=== PATIENT | male | born 1940 | race Caucasian/White ===

== ENCOUNTER → 2018-10-02 17:39 | Outpatient (CLI) | payer MEDICARE, SELFPAY ==
--- OUTSIDE RECORDS SUMMARY | 2018-11-28 09:36 | XMS RPT_ITS | Summary of Care ---
:1940 Author Organization [facility] Address [address] [place] [address] Phone Care Team Providers Name Role Phone Nino Paul DO Primary Care Provider Reason for Referral Surgical (Routine) Status Reason Specialty Diagnoses / Referred By Referred To Procedures Contact Contact New Request Diagnoses Spastic tetraplegia Cervical myelopathy Braulio Mckeon APRN-CNP [address] [address] Reason for Visit Reason Comments Baclofen Pump Refill 500/40 Encounter Details Date Type Department Care Team Description 10/09/2018 Office Visit Department of [facility] [address] [place] [address] Spastic tetraplegia (Primary Dx); Physical Medicine and Braulio Mckeon APRN-CNP [address] [address] Cervical myelopathy Rehabilitation [address] [place] [address] [place] [address] Allergies Active Allergy Reactions Severity Noted Date Comments Cephalexin Rash 09/08/2011 Unknown which drug caused rash since both were taken at the same time Sulfa Antibiotics Rash 07/19/2010 Unknown which drug caused rash since both were taken at the same time as of this encounter Medications Prescription Sig. Disp. Refills Start Date End Date Status metoprolol take 1 Tab by 30 Tab 1 03/29/2013 Active succinate (TOPROL mouth daily. XL) 25 MG PO tablet XL probenecid 500 MG take 1 Tab by 30 Tab 1 03/29/2013 Active PO TABSIndications: mouth daily. Hypersomnia, unspecified, HTN (hypertension) bisacodyl 10 MG RE 1 Suppository by 30 Suppository 1 03/29/2013 Active SUPPIndications: Rectal route Hypersomnia, daily. unspecified, HTN (hypertension) lactulose 10 take 15 mL by 500 mL 1 03/29/2013 Active GM/15ML PO mouth daily. Max SOLNIndications: of 40gm/day Chronic Indications: Constipation Chronic Constipation baclofen 500 mcg/mL 40 mL by Active IT SOLN Intrathecal route continuous. Concentration- 500mcg/ml; volume- 40mL; Rate 229.08 mcg/day; Return date for refill- 04/22/14 Psyllium (METAMUCIL take 15 mL by Active PO) mouth daily. ferrous sulfate (KP take 325 mg by Active FERROUS SULFATE) mouth daily.. 325 (65 FE) MG PO Reported on TABS 01/20/2017 Multiple Vitamin take 1 Cap by Active (MULTIVITAMIN) PO mouth daily. CAPS polyethylene glycol take 1 Packet by 30 Packet 0 03/04/2014 Active Pack mouth daily. Tamsulosin HCl 0.4 take 2 Caps by 60 Each 0 03/04/2014 Active MG Cap mouth daily. Ascorbic Acid take 100 mg by 30 Tab 0 03/04/2014 Active (VITAMIN C) 100 MG mouth daily. Tab Casanthranol-Docusa take 1 Tab by 30 Cap 0 03/05/2014 Active te Sodium 30-100 MG mouth daily. Cap simvastatin 40 MG One daily Active TabIndications: Quadriplegia, unspecified donepezil 5 MG take 5 mg by Active TabIndications: mouth At Spastic bedtime.. quadriplegia baclofen 20 MG Tab Take 1 tablet by 25 tablet 0 05/17/2018 Active tablet mouth as needed (for signs/sx of baclofen withdrawl in case of pump failure.). TID prn withdraw symptoms cyproheptadine 4 MG Take 1 tablet by 25 tablet 0 05/17/2018 Active Tab mouth 3 times daily as needed. One TID with symptoms of withdraw acetaminophen 325 Take 2 tablets by 0 05/25/2018 Active MG tablet mouth every 4 hours as needed. furOSEmide (LASIX) Take 0.5 tablets 30 tablet 1 05/30/2018 Active 40 MG Tab by mouth daily. tabletIndications: Hypersomnia, unspecified, HTN (hypertension) vancomycin Take 250 mg by Active 250MG/15ML mouth 4 times SolutionIndications daily. : Urinary retention Lactobacillus Take 2 capsules Active (ACIDOPHILUS by mouth 2 times PO)Indications: daily. Urinary retention Hospital, Clinic, or Ordered Dose Route Frequency Start Date End Date Status Other Facility Administered Medication baclofen (LIORESAL) 40 mL IT ONCE (IN CLINIC) 10/09/2018 10/09/2018 Ended 500 mcg/mL intrathecal injection kit 40 mLIndications: Spastic tetraplegia, Cervical myelopathy as of this encounter Active Problems Problem Noted Date Lung nodule 05/24/2018 Fever 05/18/2018 Sinus tachycardia 05/18/2018 Urinary retention 05/18/2018 Spasm 05/17/2018 Memory disorder 01/02/2018 Blister of right forearm 12/16/2016 Cannot rule out Herpes zoster without complication 12/16/2016 Skin rash fo unknown etiology 09/15/2016 Abnormality of gait 04/10/2014 Transaminitis 02/28/2014 Subclinical hypothyroidism 02/28/2014 Encephalopathy 02/26/2014 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 S/P insertion of intrathecal pump 02/26/2014 Unable to ambulate 02/22/2014 Acute encephalopathy 02/22/2014 Decreased right shoulder range of motion 06/17/[address] of the chest 04/05/2013 Left hip pain 11/23/2012 Balance disorder 11/23/2012 Arthropathy of hip 10/04/2012 Spinal stenosis, lumbar region, without neurogenic claudication 09/05/2012 Lumbar radiculopathy 09/05/2012 Unspecified constipation 09/05/2012 Balance problem 05/29/2012 Abnormal CXR (chest x-ray) 03/10/2012 Cervical myelopathy 07/26/2011 Mechanical complication of nervous system device, implant, and graft 07/01/2011 Abnormal involuntary movement 01/07/2011 Gait disturbance 07/19/2010 Cervical spinal stenosis Hyperlipidemia Spastic tetraplegia Cervical myelopathy PVC (premature ventricular contraction) Resolved Problems Problem Noted Date Resolved Date Spastic quadriplegia 07/19/2010 10/24/2017 Immunizations Name Dates Previously Given Next Due Influenza Vaccine 07/06/2012 as of this encounter Social History Tobacco Use Types Packs/Day Years Used Date Never Smoker Smokeless Tobacco: Never Used Alcohol Use Drinks/Week oz/Week Comments No Sex Assigned at Date Recorded Not on file as of this encounter Functional Status Functional Status Response Date of Assessment Are you deaf or do you have serious difficulty hearing? No 05/17/2018 Are you blind or do you have serious difficulty seeing, No 05/17/2018 even when wearing glasses? Do you have serious difficulty walking or climbing stairs Yes 05/17/2018 (5 years or older)? Do you have difficulty dressing or bathing (5 yrs or Yes 05/17/2018 older)? Because of a physical, mental, or emotional condition, do Yes 05/17/2018 you have difficulty doing errands alone such as visiting a doctor's office or shopping (5 yrs or older)? Cognitive Status Response Date of Assessment Because of a physical, mental, or emotional condition, do No 05/17/2018 you have serious difficulty concentrating, remembering, or making decisions (5 yrs or older)? as of this encounter Instructions Patient Instructions - PRUDENCE PATEL (KOREYIBLili) - 10/09/2018 1:26 PM ESTNext Baclofen refill appointment date 02/06/2019 @ 10:45am. If any questions or concerns should arise please OUR OFFICE @[phone] For Baclofen emergencies please page [phone] This appointment is with Jose Rivera this encounter Progress Notes Braulio Mckeon APRN-MO - 10/09/2018 1:30 PM ESTFormatting of this note may be different from the original. Chief Complaint Patient presents with ??? Baclofen Pump Refill 500/40 Subjective Santino Jo is a 78 y.o. male presenting for routine refill of his intrathecal baclofen pump. Patient is doing well, he and his deny any problems with his current pump dose. Examination: Gen: Calm, no acute distress; is pleasant and cooperative throughout the visit. HE ENT: Mucous membranes moist. Cardiovascular: regular rate Lungs: no respiratory distress Abdomen: soft, non-distended, pump to RLQ. Extremities: no clubbing, cyanosis, or edema Neuro: Fluent speech, follows all commands, and answers questions appropriately. There were no vitals taken for this visit. Refill Procedure Note: Santino Jo is currently on a flex mode of delivery for his baclofen dose. His pump is interrogated and reflects a remaining volume of 3.6 mL. The pump site is clear and the incision line is well approximated. Using standard Qulsartronic protocol the pump site is prepped in a sterile fashion with povidone iodineswabs and the reservoir is accessed with the 1.5 inch 22 - gauge non-coring needle on the first attempt. 7.9 mL of old drug are removed without difficulty. The reservoir is then refilled with 40 ml of500 mcg/ml which is drawn up into 2(two) 20 mL syringe/syringes through a filter straw and then infused into the reservoir through a 0.22-micron filter attached to the Baclofen syringe. No complications occur with the procedure. Santino Jo tolerates the procedure well. Hemostasis is noted at theaccess site. The sas clinical programmer is updated to reflect the new reservoir volume of 40 mL and is then usedto update the pump. A telemetry strip is run and a copy given to his with his next refill date and time. [email or web address] Intrathecal Refill Kit # 8565 Lot # [id number]. Use by 05/2022 Baclofen Telemetry Information: 10/09/2018 Current: Intrathecal Baclofen Drug Concentration: 500 mcg/mL Fitzpatrick Volume (mL) Net Maker Est.: 3.6 mL Fitzpatrick Volume (mL) Actual: 7.9 mL Alarm Volume (mL): 2 mL Rate (mcg/day): 153 Delivery mode: flex Percent Change: 0 Alarm date: 10/14/18 Return date: 10/09/18 Comment: baclofen Update: Intrathecal Baclofen Drug Concentration: 500 mcg/mL Fitzpatrick Volume (mL) Net Maker Est.: 40 mL Fitzpatrick Volume (mL) Actual: 40 mL Alarm Volume (mL): 2 mL Rate (mcg/day): 153 Delivery mode: flex Percent Change: 0 Alarm date: 02/10/19 Return date: 02/06/19 Comment: 10:45am Full telemetry details are filed under Procedures, Device Evaluation. Impression: 1. Spastic tetraplegia 2. Cervical myelopathy Discussion and Recommendation: Patient tolerated pump refill well, no changes made to pump dose. Patient continues to benefit from ITB therapy. Will refer patient to neuromodulation at next pump refill as he will be approaching his pump RANGEL. He will return on 02/06/2019 for refill of baclofen pump. Prudence Patel [facility], did scribe portions of this note for myself, LETHA Rivera. Provider Attestation: I have reviewed the documentation for accuracy, edited the report where necessary and the information is correct and complete. LETHA Rivera in this encounter Plan of Treatment Upcoming Encounters Date Type Specialty Care Team Description 10/25/2018 Office Visit Physical Medicine & [place], Gentry Dominguez MD [address] [facility] [address] [place] [address] 02/06/2019 Office Visit Physical Medicine & Braulio Mckeon Rehabilitation APRN-MO [address] [facility] [address] [place] [address] 07/04/2019 Appointment Ultrasound Begun, Andrés Jung MD [address] [facility] [address] [place] [address] 07/04/2019 Office Visit Urology Scheduled Tests Name Priority Associated Diagnoses Order Schedule LA ELEC ANLYS IMPLT Routine Spastic tetraplegia Ordered: 10/09/2018 ITHCL/EDRL RAILROAD COOK W/REPR Cervical myelopathy PHYS/QHP Scheduled Referrals Name Priority Associated Diagnoses Order Schedule SCHEDULE PROCEDURE Routine Spastic tetraplegia Ordered: 10/09/2018 Cervical myelopathy Health Maintenance Due Date Last Done Comments TETANUS 1958 TDAP (ADULT) 1957 COLON CANCER SCREENING DISCUSSION 1988 PNEUMOCOCCAL VACCINE SERIES (1 of 2003 2 - PCV13) POTASSIUM 05/30/2019 05/30/2018, 05/29/2018, 05/28/2018, Additional history exists INFLUENZA VACCINE Completed 07/30/2018, 08/17/2017, 08/12/2016, Additional history exists as of this encounter Implants Implanted Type Area Unattended Ground Sensor Specialist Device Expiration Model / Identifier Date Serial / Lot Adin Filter Filter 1.5t Only Intrahecal Catheter Right: [employer] 8709SC / Implanted: Qty: 1 on 09/15/2011 by Roney Christensen MD Abdomen / [id number] - [id number] Right: [employer] / Implanted: Qty: 1 on 09/15/2011 by Roney Christensen MD Abdomen [id number] / Passer Cath 91-38 Right: [employer] NEURO 8591-38 / Implanted: Qty: 1 on 09/15/2011 by Roney Christensen MD Abdomen / [id number] Intrathecal Catheter 03/27/2014 8709SC / Implanted: Qty: 1 on 04/27/2012 by Lars Alejandro MBBS / [id number] Revision Pump Segment Cath [employer] NEURO 03/28/2014 8596SC / Implanted: Qty: 1 on 04/27/2012 by Lars Alejandro MBBS / [id number] Cath Ascenda Two Piece 8781 - [id number] Midline: [employer] NEURO 01/01/2015 8781 / Implanted: Qty: 1 on 03/19/2013 by Joseph Waggoner MBBS Spine / Lumbar [id number] Cath Ascenda One Piece 8780 - [id number] N/A: Spine [employer] NEURO 02/05/2015 8780 / Implanted: Qty: 1 on 03/19/2013 by Joseph Waggoner MBBS Lumbar / [id number] Pump Synchromed 8637-40 - [id number] Right: [employer] NEURO 08/03/2014 8637- 40 / Implanted: Qty: 1 on 03/19/2013 by Joseph Waggoner MBBS Abdomen / [id number] as of this encounter Visit Diagnoses Diagnosis Spastic tetraplegia - Primary Quadriplegia, unspecified Cervical myelopathy Cervical spondylosis with myelopathy Administered Medications Inactive Administered Medications - up to 3 most recent administrations Medication Order MAR Action Action Date Dose Rate Site baclofen (LIORESAL) 500 mcg/mL Given 10/09/2018 14:23 EST 40 mL intrathecal injection kit 40 mL 40 mL, Intrathecal, ONCE (IN CLINIC), 1 dose, 10/09/18 at 1430, This medication entry should only be manipulated by the MD responsible for maintaining the intrathecal pump. Contains 1 x 20 ml Ampule in this encounter
--- OUTSIDE RECORDS SUMMARY | 2018-11-28 09:36 | XMS RPT_ITS | Summary of Care ---
:1940 Author Organization [facility] Address [address] [place] [address] Phone Care Team Providers Name Role Phone Nino Paul DO Primary Care Provider Reason for Visit Reason Comments Appointment question on whether they need to cancel Encounter Details Date Type Department Care Team Description 10/12/2018 Telephone Department of Physical Lluvia Edmonds Appointment (question on Medicine and whether they need to Rehabilitation cancel) [address] [facility] [address] [place] [address] Allergies Active Allergy Reactions Severity Noted Date [...] mouth 2 times PO)Indications: daily. Urinary retention as of this encounter Active Problems Problem [...] yrs or older)? 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 [address] [facility] [address] [place] [address] 07/04/2019 Appointment Ultrasound Andrés Walker MD [address] [facility] [address] [place] [address] 07/04/2019 Office Visit Urology Health Maintenance Due Date Last Done Comments TETANUS 1956 TDAP (ADULT) 1957 COLON CANCER SCREENING DISCUSSION 1988 PNEUMOCOCCAL VACCINE SERIES (1 of 2003 2 - PCV13) POTASSIUM 05/30/2019 05/30/2018, 05/29/2018, 05/28/2018, Additional history exists INFLUENZA VACCINE Completed 07/30/2018, 08/17/2017, 08/12/2016, Additional history exists as of this encounter Implants Implanted Type Area Laundry Machine Mechanic Device Expiration Model / Identifier Date Serial / Lot Kate Filter Filter 1.5t Only Intrahecal Catheter Right: [employer] 8709SC / Implanted: Qty: 1 on 09/15/2011 by Roney Christensen MD Abdomen / [id number] - [id number] Right: [employer] / Implanted: Qty: 1 on 09/15/2011 by Roney Christensen MD Abdomen [id number] / Passer Cath 8591-38 Right: [employer] NEURO 8591-38 / Implanted: Qty: 1 on 09/15/2011 by Roney Christensen MD Abdomen / [id number] Intrathecal Catheter 03/27/2014 8709SC / Implanted: Qty: 1 on 04/27/2012 by Lars Alejandro MBBS / [id number] Revision Pump Segment Cath [employer] NEURO 03/28/2014 8596SC / Implanted: Qty: 1 on 04/27/2012 by Lars Alejandro MBBS / [id number] Cath Ascenda Two Piece 8781 - [id number] Midline: [employer] NEURO 01/01/2015 8781 / Implanted: Qty: 1 on 03/19/2013 by Joseph Waggoner MBBS Spine / Lumbar [id number] Cath Ascenda One Piece 8780 - [id number] N/A: Spine [employer] NEURO 02/05/2015 8780 / Implanted: Qty: 1 on 03/19/2013 by Joseph Waggoner MBBS Lumbar / [id number] Pump Synchromed 8637-40 - [id number] Right: [employer] NEURO 08/03/2014 8637- 40 / Implanted: Qty: 1 on 03/19/2013 by Joseph Waggoner MBBS Abdomen / [id number] as of this encounter
--- OUTSIDE RECORDS SUMMARY | 2018-11-28 09:36 | XMS RPT_ITS | Summary of Care ---
:1940 Author Organization [facility] Address [address] 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 [address] [facility] [address] [place] [address] 07/04/2019 Appointment Ultrasound BegunAndrés MD [address] [facility] [address] [place] [address] 07/04/2019 Office Visit Urology Health Maintenance Due Date Last Done Comments TETANUS 1956 TDAP (ADULT) 1957 COLON CANCER SCREENING DISCUSSION 1988 PNEUMOCOCCAL VACCINE SERIES (1 of 2003 2 - PCV13) POTASSIUM 05/30/2019 05/30/2018, 05/29/2018, 05/28/2018, Additional history exists INFLUENZA VACCINE Completed 07/30/2018, 08/17/2017, 08/12/2016, Additional history exists as of this encounter Implants Implanted Type Area Hand Paster Device Expiration Model / Identifier Date Serial / Lot Kate Filter Filter 1.5t Only Intrahecal Catheter Right: [employer] 8709SC / Implanted: Qty: 1 on 09/15/2011 by Roney Christensen MD Abdomen / [id number] - [id number] Right: [employer] / Implanted: Qty: 1 on 09/15/2011 by Roney Christensen MD Abdomen [id number] / Passer Cath 8591-38 Right: [employer] NEURO 8591-38 / Implanted: Qty: 1 on 09/15/2011 by Roney Christensen MD Abdomen / [id number] Intrathecal Catheter 03/27/2014 8709SC / Implanted: Qty: 1 on 04/27/2012 by Lars Alejandro MBBS / [id number] Revision Pump Segment Cath [employer] NEURO 03/28/2014 8596SC / Implanted: Qty: 1 on 04/27/2012 by Lars Alejandro MBBS / [id number] Cath Ascenda Two Piece 8781 - [id number] Midline: [employer] NEURO 01/01/2015 8781 / Implanted: Qty: 1 on 03/19/2013 by Joseph Waggoner MBBS Spine / Lumbar [id number] Cath Ascenda One Piece 8780 - [id number] N/A: Spine [employer] NEURO 02/05/2015 8780 / Implanted: Qty: 1 on 03/19/2013 by Joseph Waggoner MBBS Lumbar / [id number] Pump Synchromed 8637-40 - [id number] Right: [employer] NEURO 08/03/2014 8637- 40 / Implanted: Qty: 1 on 03/19/2013 by Joseph Waggoner MBBS Abdomen / [id number] as of this encounter Procedures Procedure Name Priority Date/Time Associated Diagnosis Comments DEVICE EVALUATION Routine 10/09/2018 12:00 AM EST in this encounter
--- OUTSIDE RECORDS SUMMARY | 2018-11-28 09:36 | XMS RPT_ITS | Summary of Care ---
:1940 Author Organization [facility] Address [address] [id number] Care Team Providers Name Role Phone No, Physician Primary Care Provider Unavailable Encounter Details Date Type Department Care Team Description 09/14/2018 Hospital Encounter [facility] Victor M Falcon MD [address] [place] [address] [address] [place] [address] [address] [place] [address] Allergies No Known Allergiesas of this encounter Medications No known medicationsas of this encounter Active Problems Problem Noted Date Onychomycosis 03/08/2018 Corns 03/08/2018 Pain in both feet 03/08/2018 Social History Tobacco Use Types Packs/Day Years Used Date Never Smoker Smokeless Tobacco: Never Used Sex Assigned at Date Recorded Not on file as of this encounter Plan of Treatment Health Maintenance Due Date Last Done Comments TETANUS EVERY 10 YR 1940 ZOSTER VACCINES (1 of 2) 1988 PNEUMOCOCCAL VACCINE AGE 65+ (1 of 2 - PCV13) 2003 SEQUENTIAL INFLUENZA VACCINE (#1) 2018 as of this encounter Procedures Procedure Name Priority Date/Time Associated Diagnosis Comments CBC Routine 09/14/2018 8:03 AM Results for this EST procedure are in the results section. BASIC METABOLIC Routine 09/14/2018 8:03 AM Results for this PANEL EST procedure are in the results section. in this encounter Results CBC (09/14/2018 8:03 AM) WBC 7.9 3.6 - 10.4 K[facility] RBC 4.38 4.0 - 5.5 M/[facility] Hemoglobin 12.4 (L) 12.9 - 16.9 g/dL [facility] Hematocrit 37.2 (L) 37.9 - 49.2 % [facility] MCV 84.9 82.8 - 99.3 FL [facility] MCH 28.4 27.7 - 34.6 pg [facility] MCHC 33.4 32.9 - 35.5 g/dL [facility] RDW 15.0 (H) 10 - 14.3 % [facility] Platelets 323 139 - 354 K/mcL [facility] MPV 7.3 6.6 - 10.8 FL [facility] Specimen Blood Performing Organization Address [facility] Phone Number [facility] [address] [place] [address] Basic Metabolic Panel (09/14/2018 8:03 AM) Glucose 107 (H) 70 - 99 mg/dL [facility] Comment: [facility] This test result might be falsely depressed or falsely elevated on samples drawn from patients taking Sulfasalazine and Sulfapyridine. Venipuncture should occur prior to taking either of these drugs. BUN 16 8 - 25 mg/dL [facility] Creatinine 0.96 0.80 - 1.30 mg/dL [facility] eGFR >=60 ml/min/1.73sq.m [facility] Comment: [facility] Non- GFR Calc eGFR is an estimated Glomerular Filtration Rate based on the value of the patient's serum creatinine. In outpatients, eGFR should be used as a helpful tool in screening for CKD. In inpatients or patients with acute renal failure, eGFR represents the GFR at the moment of the draw and should be used with caution. eGFR >=60Comment: ml/min/1.73sq.m [facility] [place] GFR Calc [facility] Calcium 9.1 8.4 - 10.2 mg/dL [facility] Sodium 137 135 - 145 mmol/L [facility] Potassium 4.6 3.5 - 5.1 mmol/L [facility] Chloride 100 98 - 108 mmol/L [facility] CO2 28 21 - 32 mmol/L [facility] Specimen Blood Performing Organization Address [facility] Phone Number [facility] [address] [place] [address] in this encounter
--- OUTSIDE RECORDS SUMMARY | 2018-11-28 09:37 | XMS RPT_ITS ---
:1940 Author Organization OHIP Support Name Relationship Address Phone DEVONTE JO Unavailable [address] + [place] [address] TA JO Unavailable Unavailable Unavailable JOJOSE CARLOSDEVONTE Unavailable [address] [facility] + [place] [address] R Unavailable Unavailable Unavailable JO, DEVONTE Unavailable [address] + [place] [address] JO, DEVONTE Unavailable [address] + [place] [address] ANUWIN, DEVONTE Unavailable Unavailable + JO, DEVONTE Unavailable [address] + [place] [address] GUIDO JOWIN Unavailable Unavailable Unavailable JO, DEVONTE Unavailable [address] + [place] [address] JO TA Unavailable Unavailable Unavailable JO, DEVONTE Unavailable [address] + [place] [address] JO TA Unavailable Unavailable Unavailable HARDWIN, DEVONTE Unavailable Unavailable + JO, DEVONTE Unavailable [address] + [place] [address] SANDRO TA Unavailable Unavailable Unavailable HARDWIN, DEVONTE Unavailable Unavailable + HARDWIN, DEVONTE Unavailable Unavailable + HARDWIN, DEVONTE Unavailable Unavailable + HARDWIN, DEVONTE Unavailable Unavailable + JO, DEVONTE Unavailable [address] + [place] [address] JO, TA Unavailable Unavailable Unavailable HARDWIN, DEVONTE Unavailable Unavailable + HARDWIN, DEVONTE Unavailable Unavailable + JO, DEVONTE Unavailable [address] + [place] [address] JO, TA Unavailable Unavailable Unavailable JO, DEVONTE Unavailable [address] [facility] [address] + [place] [address] JO, TA Unavailable Unavailable Unavailable JO, DEVONTE Unavailable [address] [address] + [place] [address] JO, TA Unavailable Unavailable Unavailable JO, DEVONTE Unavailable [address] [facility] [address] + [place] [address] JO, TA Unavailable Unavailable Unavailable Care Team Providers Name Role Phone Carleen Elena Attending Unavailable Shorty Paul Primary Care Unavailable Carleen Elena Referring Unavailable BAVISHI, SHEITAL B Attending Unavailable BAVISHI, SHEITAL B Referring Unavailable SHORTY PAUL Primary Care Unavailable CLAIRMONT, SALLIE C Attending Unavailable CLAIRMONT, SALLIE C Referring Unavailable SHORTY PAUL Primary Care Unavailable CLAIRMONT, SALLIE C Attending Unavailable CLAIRMONT, SALLIE C Referring Unavailable SHORTY PAUL Primary Care Unavailable SHORTY PAUL Primary Care Unavailable [facility] Consulting Unavailable OBED KOHLI Admitting Unavailable RAMÓN TOVAR Attending Unavailable BAVISHI, SHEITAL B Attending Unavailable SHORTY PAUL Referring Unavailable SHORTY PAUL Primary Care Unavailable JUAN M JARA Attending Unavailable SEVOV, KATY Referring Unavailable SHORTY PAUL Primary Care Unavailable IGNACIO, YARELI C Attending Unavailable IGNACIO, YARELI C Referring Unavailable SHORTY PAUL Primary Care Unavailable ASHLEE MENDEZ Attending Unavailable SELF, SELF Referring Unavailable SHORTY PAUL Primary Care Unavailable CLAIRMONT, SALLIE C Attending Unavailable CLAIRMONT, SALLIE C Referring Unavailable SHORTY PAUL Primary Care Unavailable BAVISHI, SHEITAL B Attending Unavailable SHORTY PAUL Referring Unavailable SHORTY PAUL Primary Care Unavailable Isreal Quintero Attending Unavailable Shorty Paul Primary Care Unavailable Thomae, Isreal R Admitting Unavailable Shorty Paul Primary Care Unavailable Sokari, Telemate Admitting Unavailable Sokari, Telemate Attending Unavailable Harvinder Anderson Admitting Unavailable Harvinder Anderson Attending Unavailable Shorty Paul Primary Care Unavailable Hernández, Thierry Admitting Unavailable Hernández, Thierry Attending Unavailable Shorty Paul Primary Care Unavailable Tavallaee, Eugenio M Attending Unavailable Shorty Paul Primary Care Unavailable Tavallaee, Eugenio M Admitting Unavailable Collins, Care Consulting Unavailable Tavallaee, Eugenio M Attending Unavailable Shorty Paul Primary Care Unavailable Tavallaee, Eugenio M Admitting Unavailable Collins, Care Consulting Unavailable Tavallaee, Eugenio M Attending Unavailable Shorty Paul Primary Care Unavailable Tavallaee, Eugenio M Admitting Unavailable Collins, Care Consulting Unavailable Tavallaee, Eugenio M Attending Unavailable Shorty Paul Primary Care Unavailable Tavallaee, Eugenio M Admitting Unavailable Collins, Care Consulting Unavailable Tavallaee, Eugenio M Attending Unavailable Shorty Paul Primary Care Unavailable Tavallaee, Eugenio M Admitting Unavailable Collins, Care Consulting Unavailable [place]avalla[place], Eugenio M Attending Unavailable Shorty Paul Primary Care Unavailable Tavallaee, Eugenio M Admitting Unavailable Collins, Care Consulting Unavailable Shorty Paul Primary Care Unavailable Shaw Strauss Admitting Unavailable Shaw Strauss Attending Unavailable Anand Robins Attending Unavailable Shorty Paul Primary Care Unavailable Anand Robins Attending Unavailable Shorty Paul Primary Care Unavailable Anand Robins Attending Unavailable Shorty Paul Primary Care Unavailable Shorty Paul Primary Care Unavailable Joanna St Admitting Unavailable Joanna St Attending Unavailable Anand Robins Attending Unavailable Shorty Paul Primary Care Unavailable Ezekiel HAMMOND, Dr. Victor M Nguyen Admitting Unavailable Dr. Victor M Falcon MD Attending Unavailable PROBLEMS PROBLEMS DATE TYPE CONDITION / CODE ATTENDING STATUS SOURCE 10/09/2018 Admitting Baclofen Pump Refill SAVANNAH, Active [facility] diagnosis / 658() SHEITAL B [facility] Repository 10/03/2018 Unknown Z00.0 - Encounter Kassy, Active [place] for general adult [facility] / Z00.0(ICD-10) Repository 08/08/2018 Admitting Botox Injection / CLAIRMONT, Active [facility] diagnosis 657() SALLIE Tee [facility] Repository 07/24/2018 Admitting New Patient / ASHLEE MENDEZ Active [facility] diagnosis [id number] [facility] Repository 07/24/2018 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 C [facility] respiratory [facility] system / Center D49.1(ICD-10) Repository 05/24/2018 Admitting Solitary pulmonary [place], [facility] diagnosis nodule / [facility] R91.1(ICD-10) [facility] Repository 05/18/2018 Admitting Retention of urine, [facility], [facility] diagnosis unspecified / [facility] R33.9(ICD-10) [facility] Repository 05/16/2018 Admitting Difficulty in [facility], [facility] diagnosis walking, not [facility] elsewhere classified [facility] / R26.2(ICD-10) Center Repository 05/16/2018 Admitting Other symptoms and [facility] diagnosis signs involving the [facility] musculoskeletal [facility] system / Center R29.898(ICD-10) Repository 05/16/2018 Admitting Pneumonia, [place], [facility] diagnosis unspecified organism [facility] / J18.9(ICD-10) [facility] Repository 05/16/2018 Admitting Hypersomnia, LA, Active [facility] diagnosis unspecified / [facility] G47.10(ICD-10) [facility] Repository 05/16/2018 Admitting Essential (primary) [place], [facility] diagnosis hypertension / [facility] I10(ICD-10) [facility] Repository 02/26/2014 Admitting Spinal stenosis, [place], Active [facility] diagnosis lumbar region [facility] without neurogenic [facility] claudication / Center M48.061(ICD-10) Repository 11/23/2012 Admitting Other abnormalities [facility], [facility] diagnosis of gait and mobility [facility] / R26.89(ICD-10) [facility] Repository 03/05/2014 Admitting Quadriplegia, SAVANNAH, Active [facility] diagnosis unspecified / [facility] G82.50(ICD-10) [facility] Repository 09/08/2011 Admitting Disease of spinal SAVANNAH, Active [facility] diagnosis cord, unspecified / [facility] G95.9(ICD-10) [facility] Repository PROCEDURES PROCEDURES No Procedure Records FoundRESULTS RESULTS Observed: 10/02/2018 Status: F Source: [place] [facility], URINE 3:55 PM [facility] REPOSITORY Urine Culture RESULTS CALLED TO [facility]/ 10/05/18 0745 Erin Romano. Copy of report sent to Infection Control Printer [id number] 10/05/18 0745 JAVIER. ORGANISM 1: Pseudomonas aeroginosa [place] Count >100,000 ORGANISM 2: Meth. resistant Staph. aureus [place] Count >100,000 Pseudomonas aeroginosa: REACTION Cefepime $ 4 S Ceftazidime *NF 2 S Ciprofloxacin $ >=4 R Gentamicin $ 8 I Imipenem *NF >=16 R Levofloxacin $ >=8 R Piperacillin/Tazobactam $$ 16 S Tobramycin $ <=1 S (NF) indicates non-formulary drug at [facility]. Approval by Infectious Disease Specialist required before non-formulary drugs may be ordered and/or dispensed. Meth. resistant Staph. aureus: REACTION Benzylpenicillin NF >=0.5 R Cefoxitin *NF + Inducable Clindamycin Res[place] - Gentamicin $ <=0.5 S Levofloxacin $ >=8 R Linezolid $$$$ 2 S Nitrofurantoin $ <=16 S Oxacillin NF >=4 R Rifampin $$ <=0.5 S Tetracycline NF <=1 S Trimethoprim/Sulfametho $ <=10 S Vancomycin $ 1 S (NF) indicates non-formulary drug at [facility]. Approval by Infectious Disease Specialist required before non-formulary drugs may be ordered and/or dispensed. * CLSI guidelines does not recommend testing of cephalosporins. This interpretation is deduced from Beta-lactam/penicillin results. Performed By: #### M100.0650 #### [facility] [address] [address], [address] BASIC METABOLIC PANEL Collected: 09/14/2018 Status: F Source: [facility] 8:03 AM [facility] REPOSITORY TYPE CODE TESTS RESULT OUT OF REFERENCE UNITS RANGE LAB GLU 70-99 mg/dL High Glucose 107 Result Comment: This test result might be falsely depressed or falsely elevated on samples drawn from patients taking Sulfasalazine and Sulfapyridine. Venipuncture should occur prior to taking either of these drugs. LAB BUN 8-25 mg/dL BUN 16 LAB CREA 0.80-1.30 mg/dL Creatinine 0.96 LAB eGFR ml/min/1.73sq .m eGFR,NonAfrican-Am erican >=60 Result Comment: Non- GFR Calc eGFR is an estimated Glomerular Filtration Rate based on the value of the patient's serum creatinine. In outpatients, eGFR should be used as a helpful tool in screening for CKD. In inpatients or patients with acute renal failure, eGFR represents the GFR at the moment of the draw and should be used with caution. LAB eGFRB ml/min/1.73sq.m eGFR, -Mosotho >=60 Result Comment: GFR Calc LAB CALCM 8.4-10.2 mg/dL Calcium 9.1 LAB NA 135-145 mmol/L Sodium 137 LAB K 3.5-5.1 mmol/L Potassium 4.6 LAB CL 98-108 mmol/L Chloride 100 LAB CO2 21-32 mmol/L CO2 28 Performed By: #### CHEM8, CBCWOD #### Unless otherwise noted, all testing performed by [place] [address] [facility]. [place], [place] [address] CLIA: [id number] Portrait Studio Photographer: Abisai Elliott M.D. CBC W/O DIFF Collected: 09/14/2018 Status: F Source: [facility] 8:03 [facility] REPOSITORY TYPE CODE TESTS RESULT OUT OF RANGE REFERENCE UNITS LAB WBC 3.6-10.4 K/mcL WBC Normal 7.9 LAB RBC 4.0-5.5 M/mcL RBC Normal 4.38 LAB HGB 12.9-16.9 g/dL Low Hemoglobin 12.4 LAB HCT 37.9-49.2 % Low Hematocrit 37.2 LAB MCV 82.8-99.3 FL MCV Normal 84.9 LAB MCH 27.7-34.6 pg MCH Normal 28.4 LAB MCHC 32.9-35.5 g/dL MCHC Normal 33.4 LAB RDW 10-14.3 % High RDW 15.0 LAB PLT 139-354 K/mcL Platelet Normal Count 323 LAB MPV 6.6-10.8 FL MPV Normal 7.3 Performed By: #### CHEM8, CBCWOD #### Unless otherwise noted, all testing performed by [facility] [address] [place], [place] [address] CLIA: [id number] Portrait Studio Photographer: Abisai Elliott M.D. PROGRESS Observed: 09/12/2018 Status: COMPLETED Source: [place] 12:00 AM [facility] REPOSITORY HNO ID: [id number] Author: Victor M Falcon Service: (none) Author Type: Physician Type: Progress Notes Filed: 09/13/2018 4:37 PM Note Text: [facility] NOTE NAME: JHON JO NO.: [id number] DATE OF SERVICE: 09/12/2018 [facility] DATE OF : 1940 New patient history and physical HISTORY OF PRESENT ILLNESS: The patient is a 77-year-old male who is admitted to us from [facility] with a diagnosis of possible acute urinary tract infection, electrolyte imbalance with hyponatremia and hypochloremia, hypertension, dementia, spinal stenosis with muscle spasticity with previous baclofen pump and back surgery x2, chronic anemia, BPH, chronic constipation, history of colonic polyps, past history of urinary retention, hyperlipidemia, and generalized weakness and debility. He initially presented to the hospital with progressive weakness and fatigue to the point that he was unable to get out of bed. He had been started on oral antibiotic therapy for possible urinary tract infection. Evaluation in the hospital revealed findings consistent with probable persistent urinary tract infection. He was given appropriate antibiotic therapy. Laboratory testing also revealed hyponatremia and hypochloremia for which he was given appropriate IV fluids. His final urine culture came back 2000 colonies of Enterococcus species reflecting his prior antibiotic therapy. He did receive a course of antibiotic therapy while in the hospital. Followup labs did reveal normalization of his electrolytes. His condition was stabilized and improved and is now admitted to our facility for continued therapy prior to returning back to his home where he lives with his . REVIEW OF SYSTEMS: He is currently sitting up in his room in his wheelchair. He is awake and responsive. His is also present. He is unable to provide any reliable history. However, she is able to provide information regarding his current hospitalization and past medical history. She is indicating that he is doing much better. He currently denies any pain or discomfort. He has had no shortness of breath. No history of asthma, wheezing, hemoptysis. He apparently was treated for pneumonia several months ago in [place]. After that he was in a intermediate facility for 8 weeks prior to going home. He has had no significant cardiac history. No reports any chest pain, angina, palpitations, previous heart surgeries or pacemakers. He does have a history of hypertension and hyperlipidemia. His appetite has been fair. No bleeding ulcers, hepatitis, or melena. No prior strokes or seizures, diabetes mellitus, breathing problems. He apparently did experience blood clots in his legs after his back surgery many years ago for which at that time he did have placement of IVC filter, which is still present. No recent fevers, chills, or falls. Rest of his system review is negative. FAMILY HISTORY: Significant for hypertension. SOCIAL/FUNCTIONAL HISTORY: He has no past smoking or alcohol history. 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 MEDICATIONS: Baclofen p.r.n., Flexeril p.r.n., donepezil 5 mg daily, ferrous sulfate 325 mg b.i.d., Lactobacillus b.i.d., multivitamin daily, MiraLax daily, probenecid 500 mg daily, simvastatin 40 mg at bedtime, tamsulosin 0.4 mg b.i.d., Toprol-XL 25 mg daily, and vitamin C 100 mg daily. ALLERGIES: CEPHALEXIN AND SULFAMETHOXAZOLE. EXAMINATION: Afebrile, vital signs are stable. He is in no distress but appears chronically ill. HEENT: Extraocular movements intact. Sclerae nonicteric. Ears intact. Lungs are clear. Heart: Regular. Abdomen: Soft, nontender. Bowel sounds present. Extremities: With mild bipedal edema, which appears to be chronic, but slightly greater on right side. He does have generalized weakness, greater on the right side, which is chronic, related to his spinal stenosis and back surgery. IMPRESSION: 1. Acute urinary tract infection - the patient did receive a course of antibiotic therapy while in the hospital. Monitor urinary symptoms closely. He has apparently had a past history of urinary retention, though he has been voiding reasonably well. His apparently had been self-catheterizing him twice a day and the past. 2. Electrolyte imbalance with hyponatremia and hypochloremia - we will continue to monitor his electrolytes closely. We will obtain followup BMP and monitor his fluid balance closely. 3. Hypertension - monitor his blood pressure closely and make further adjustments as needed. 4. Dementia - we will monitor his cognitive status closely. He appears to be back at baseline. Continue with current donepezil therapy. 5. Functional status - he does have significant generalized weakness and debility. He will be receiving rehabilitation services for overall strengthening and conditioning. His overall condition and prognosis is quite guarded. We will obtain followup labs, including CBC and BMP. Eventual goal for him is to return back to his home situation if at all possible. DICTATED BY: MD SEBASTIEN Cervantes/Ericka JOB# [id number] cc:[facility] Collected: 09/08/2018 Status: F Source: [place] 6:06 AM [facility] REPOSITORY TYPE CODE TESTS RESULT OUT OF RANGE REFERENCE UNITS LAB [id number](L 70-99 mg/dL OINC) High Glucose Lvl 100 LAB 49671968(L 6-23 mg/dL OINC) BUN Normal 14 LAB 5753743(LO 0.6-1.3 mg/dL INC) Normal Creatinine 0.7 LAB 65764011(L 5.4-30.0 ratio OINC) Normal BUN/Creat Ratio 20.0 LAB 22248681(L 8.6-10.3 mg/dL OINC) Calcium Normal Lvl 9.0 LAB 03540969(L 136-145 mEq/L OINC) Low Sodium Lvl 135 LAB 87631056(L 3.5-5.3 mEq/L OINC) Normal Potassium Lvl 4.0 LAB 24656777(L 98-107 mEq/L OINC) Chloride Normal 101 LAB 15735793(L 21.0-32.0 mEq/L OINC) CO2 Normal 29.0 LAB 13619750(L 10-20 mEq/L OINC) Low AGAP 9 Performed By: #### [id number] #### [facility] [employer] [facility] [place] [address] EGFR Collected: 09/08/2018 Status: F Source: [place] 6:06 AM [facility] REPOSITORY Order Comment: Order added by Discern Expert. TYPE CODE TESTS RESULT OUT OF RANGE REFERENCE UNITS LAB 23924147(LO mL/min/1.73 INC) m2 Normal eGFR >60 LAB 06200768(LO mL/min/1.73 INC) m2 Normal eGFR AA >60 Performed By: #### [id number] #### [facility] [employer] [facility] [place] [address] CBC W/ MANUAL DIFF Collected: 09/08/2018 Status: F Source: [place] 6:00 AM [facility] REPOSITORY TYPE CODE TESTS RESULT OUT OF RANGE REFERENCE UNITS LAB 63391964(L 3.6-11.0 E3/mcL OINC) Normal WBC 6.8 LAB 93234955(L 3.90-6.10 E6/mcL OINC) Normal RBC 3.96 LAB 82599457(L 13.5-18.0 G/DL OINC) Low Hgb 11.3 LAB 23463932(L 42.0-52.0 % OINC) Low Hct 33.5 LAB 79736039(L 11.5-14.5 % OINC) High RDW 14.9 LAB 98358299(L 27.0-31.0 pg OINC) Normal MCH 28.6 LAB 88865314(L 33.0-37.0 G/DL OINC) Normal MCHC 33.8 LAB 62976011(L 78.0-100.0 fL OINC) Normal MCV 84.7 LAB 49949359(L 7.4-11.0 fL OINC) Normal MPV 7.7 LAB 14093725(L 130-400 E3/mcL OINC) Normal Platelet 181 Performed By: #### [id number] #### [place] [address] MANUAL DIFF Collected: 09/08/2018 Status: F Source: [place] 6:00 AM [facility] REPOSITORY Order Comment: Order added by Discern Expert. TYPE CODE TESTS RESULT OUT OF RANGE REFERENCE UNITS LAB 57143074(L 37-75 % OINC) High Segs Man 76 LAB 89402771(L 14-48 % OINC) Normal Lymph Man 15 LAB 15815759(L 1-11 % OINC) Normal Monocyte Man 5 LAB 90971192(L 0-5 % OINC) Normal Eos Man 4 LAB 51878239(L 0-1 % OINC) Normal Basophil Man 0 LAB 25201267(L OINC) Normal RBC Morph NORMAL Performed By: #### [id number] #### [place] [address] ZZPLT MORPH Collected: 09/08/2018 Status: F Source: [place] 6:00 AM [facility] REPOSITORY TYPE CODE TESTS RESULT OUT OF RANGE REFERENCE UNITS LAB 07846230(L OINC) Normal Platelet NORMAL Estimate LAB 55203191(L OINC) Normal Platelet Morph NORMAL Performed By: #### [id number] #### [place] [address] .MANUAL ABS Collected: 09/08/2018 Status: F Source: [place] 6:00 AM [facility] REPOSITORY Order Comment: Order added by Discern Expert. TYPE CODE TESTS RESULT OUT OF RANGE REFERENCE UNITS LAB 76570697(L 1.4-6.5 10x3/ OINC) Normal Segs Abs Man 5.2 LAB 19078296(L 1.2-3.4 10x3/ OINC) Low Lymph Abs Man 1.0 LAB 01698252(L 0.0-0.7 10x3/ OINC) Normal Wayne Abs Man 0.3 LAB 54591822(L 0.0-0.5 10x3/ OINC) Normal Eos Abs Man 0.3 LAB 02163563(L 0.0-0.2 10x3/ OINC) Normal Basophil Abs 0.0 Man Performed By: #### [id number] #### [place] [address] BMP Collected: 09/07/2018 Status: F Source: [place] 6:28 AM [facility] REPOSITORY TYPE CODE TESTS RESULT OUT OF RANGE REFERENCE UNITS LAB 56423967(L 10-20 mEq/L OINC) Low AGAP 8 LAB 46075085(L 70-99 mg/dL OINC) Glucose Normal Lvl 95 LAB 54132480(L 6-23 mg/dL OINC) BUN Normal 19 LAB 9171394(LO 0.6-1.3 mg/dL INC) Normal Creatinine 0.9 LAB 04391219(L 5.4-30.0 ratio OINC) Normal BUN/Creat Ratio 21.1 LAB 10037543(L 8.6-10.3 mg/dL OINC) Calcium Normal Lvl 8.8 LAB 10835297(L 136-145 mEq/L OINC) Sodium Normal Lvl 136 LAB 65322629(L 3.5-5.3 mEq/L OINC) Normal Potassium Lvl 3.8 LAB 06118942(L 98-107 mEq/L OINC) Chloride Normal 102 LAB 28793793(L 21.0-32.0 mEq/L OINC) CO2 Normal 30.0 Performed By: #### [id number] #### [facility] [address] [place] [address] EGFR Collected: 09/07/2018 Status: F Source: [place] 6:28 [facility] REPOSITORY Order Comment: Order added by Discern Expert. TYPE CODE TESTS RESULT OUT OF RANGE REFERENCE UNITS LAB 96332595(LO mL/min/1.73 INC) m2 Normal eGFR >60 LAB 80374647(LO mL/min/1.73 INC) m2 Normal eGFR AA >60 Performed By: #### [id number] #### [facility] [address] [place] [id number] IRON Collected: 09/07/2018 Status: F Source: [place] 6:28 [facility] REPOSITORY TYPE CODE TESTS RESULT OUT OF RANGE REFERENCE UNITS LAB 27298979(LO 35-155 microgram/d INC) Low L Iron 31 Performed By: #### [id number] #### [facility] [address] [place] [address] TRANSFERRIN Collected: 09/07/2018 Status: F Source: [place] 6:28 AM [facility] REPOSITORY TYPE CODE TESTS RESULT OUT OF REFERENCE UNITS RANGE LAB 74947153(L 180-382 mg/dL OINC) Low Transferrin 172 Performed By: #### [id number] #### [facility] [employer] [address] [place] [address] TIBC CALCULATED Collected: 09/07/2018 Status: F Source: [place] 6:28 AM [facility] REPOSITORY TYPE CODE TESTS RESULT OUT OF REFERENCE UNITS RANGE LAB 19562412(L >=250 microgram/ OINC) Low dL TIBC 241 LAB [id number](L 180-382 mg/dL OINC) Low Transferrin 172 Performed By: #### [id number] #### [facility] [employer] [address] [place] [address] FERRITIN Collected: 09/07/2018 Status: F Source: [place] 6:28 [facility] REPOSITORY TYPE CODE TESTS RESULT OUT OF REFERENCE UNITS RANGE LAB 56051567(LO 20.0-300.0 ng/mL INC) High Ferritin Lvl 412.0 Performed By: #### [id number] #### [employer] [employer] [address] [place] [address] CBC W/ MANUAL DIFF Collected: 09/07/2018 Status: F Source: [place] 6:28 [facility] REPOSITORY TYPE CODE TESTS RESULT OUT OF RANGE REFERENCE UNITS LAB 97106238(L 3.6-11.0 E3/mcL OINC) Normal WBC 6.9 LAB 96216329(L 3.90-6.10 E6/mcL OINC) Normal RBC 4.01 LAB 21840963(L 13.5-18.0 G/DL OINC) Low Hgb 11.5 LAB 08390654(L 42.0-52.0 % OINC) Low Hct 34.1 LAB 33977490(L 11.5-14.5 % OINC) High RDW 14.6 LAB 72435256(L 27.0-31.0 pg OINC) Normal MCH 28.8 LAB 78816987(L 33.0-37.0 G/DL OINC) Normal MCHC 33.8 LAB 80790797(L 78.0-100.0 fL OINC) Normal MCV 85.1 LAB 53800729(L 7.4-11.0 fL OINC) Normal MPV 7.6 LAB 06457261(L 130-400 E3/mcL OINC) Normal Platelet 159 Performed By: #### [id number] #### [facility] [employer] [address] [place] [address] MANUAL DIFF Collected: 09/07/2018 Status: F Source: [place] 6:28 AM [facility] REPOSITORY Order Comment: Order added by Discern Expert. TYPE CODE TESTS RESULT OUT OF RANGE REFERENCE UNITS LAB 45089961(L 37-75 % OINC) Normal Segs Man 55 LAB 62771805(L 0-1 OINC) High Band Man 14 LAB 31469712(L 14-48 % OINC) Normal Lymph Man 15 LAB 87524814(L 1-11 % OINC) Normal Monocyte Man 10 LAB 19594670(L 0-5 % OINC) Normal Eos Man 4 LAB 78550604(L 0-1 % OINC) Normal Basophil Man 0 LAB 01293333(L % OINC) Normal React Lymph 2 Man LAB 06433043(L OINC) Normal RBC Morph NORMAL Performed By: #### [id number] #### TY [facility] [address] [place] [address] ZZPLT MORPH Collected: 09/07/2018 Status: F Source: YAZIDISM 6:28 [facility] REPOSITORY TYPE CODE TESTS RESULT OUT OF RANGE REFERENCE UNITS LAB 53786613(L OINC) Normal Platelet NORMAL Estimate LAB 11340123(L OINC) Normal Platelet Morph NORMAL Performed By: #### [id number] #### [facility] [address] [place] [address] .MANUAL ABS Collected: 09/07/2018 Status: F Source: YAZIDISM 6:28 AM [facility] REPOSITORY Order Comment: Order added by Discern Expert. TYPE CODE TESTS RESULT OUT OF RANGE REFERENCE UNITS LAB 30826162(L 1.4-6.5 10x3/ OINC) Normal Segs Abs Man 3.8 LAB 04385397(L 1.2-3.4 10x3/ OINC) Low Lymph Abs Man 1.0 LAB 83105725(L 0.0-0.7 10x3/ OINC) Normal Wayne Abs Man 0.7 LAB 78613832(L 0.0-0.5 10x3/ OINC) Normal Eos Abs Man 0.3 LAB 24909429(L 0.0-0.2 10x3/ OINC) Normal Basophil Abs 0.0 Man Performed By: #### [id number] #### TY Rem[facility] [place] [address] U SODIUM Collected: 09/06/2018 Status: F Source: YAZIDISM 9:38 PM [facility] REPOSITORY Order Comment: OK to use spec in lab if able, thanks TYPE CODE TESTS RESULT OUT OF REFERENCE UNITS RANGE LAB 81676018(LO 40-220 mEq/L INC) Low U Sodium 16 Performed By: #### [id number] #### TY [employer] [address] [place], [place] [id number] U PROTEIN Collected: 09/06/2018 Status: F Source: YAZIDISM 9:38 PM [facility] REPOSITORY Order Comment: OK to use spec in lab if able, thanks TYPE CODE TESTS RESULT OUT OF REFERENCE UNITS RANGE LAB 83175186(LO 1-14 mg/dL INC) Ur High Total Protein 20 Performed By: #### [id number] #### TY [facility] [address] [place] [address] U CREATININE Collected: 09/06/2018 Status: F Source: YAZIDISM 9:38 PM [facility] REPOSITORY Order Comment: OK to use spec in lab if able, thanks TYPE CODE TESTS RESULT OUT OF RANGE REFERENCE UNITS LAB 15284443(L 20-300 mg/dL OINC) U Normal Creatinine 31 Performed By: #### [id number] #### [facility]Y [facility] [address] [place], [place] [address] Observed: 09/06/2018 Status: F Source: [place] URINE 10:31 AM [facility] REPOSITORY Final Report: 2,000 cfu/ml resembling Enterococcus species noted in Normal skin alexei isolated Performed By: #### [id number] #### TY Microbiology Subsection [address] [place] [address] UA COMPLETE Collected: 09/06/2018 Status: F Source: YAZIDISM 5:34 AM [facility] REPOSITORY TYPE CODE TESTS RESULT OUT OF RANGE REFERENCE UNITS LAB 64812169( Yellow LOINC) Normal UA Color Yellow LAB 67044697( Clear LOINC) UA Clarity Abnormal Cloudy LAB 54950002( Negative LOINC) Normal UA Glucose Negative LAB 52499496( Negative LOINC) Normal UA Bili Negative LAB 79249966( Negative LOINC) Normal UA Ketones Negative LAB 33337077( 1.003-1.030 LOINC) Low UA Spec Grav 1.002 LAB 33216693( 4.6-8.0 LOINC) Normal UA pH 6.0 LAB 04683592( Negative LOINC) Normal UA Protein Negative LAB 22680549( mg/dL LOINC) Normal UA Urobilinogen Negative LAB 02294209( Negative LOINC) Normal UA Nitrite Negative LAB 65709579( Negative LOINC) UA Blood Abnormal 1+ LAB 43257166( Negative LOINC) UA Leuk Est Abnormal 3+ LAB 32928665( 0-3 /HPF LOINC) UA RBC Abnormal 10-20 LAB 88000750( 0-5 /HPF LOINC) UA WBC Abnormal >50 LAB 23267382( None /HPF LOINC) UA Bacteria Abnormal 1+ LAB 22538153( Trace /LPF LOINC) UA Mucous Abnormal Trace Performed By: #### [id number] #### [place] [address] XR CHEST 2 VIEWS Observed: 09/06/2018 Status: F Source: YAZIDISM 4:44 AM [facility] REPOSITORY Exam Date/Time: 09/06/2018 04:53 EDT Reason for Exam: Other (please specify) Report STUDY: XR Chest 2 Views; 09/06/2018 4:53 am INDICATION: Other (please specify). COMPARISON: [id number] ACCESSION NUMBER(S): [id number] ORDERING CLINICIAN: Piter Langley FINDINGS: The cardiac silhouette is normal in size. Mild diffuse prominence of the interstitial lung left retrocardiac atelectasis no focal airspace consolidation or pleural effusion. No pneumothorax. Moderate degenerative changes in the bilateral shoulder skeletal structures are intact. Multilevel osteophytic degenerative changes thoracic spine lumbar spine IMPRESSION: Mild interstitial edema no airspace consolidation or pleural effusion. FINAL REPORT Dictated: 09/06/2018 5:17 am Kathy Thompson MD Signed (Electronic Signature): 09/06/2018 5:17 am Signed by: Kathy Thompson MD Technologist: JIMENEZ CBC W/ AUTO DIFF Collected: 09/06/2018 Status: F Source: YAZIDISM 4:39 AM [facility] REPOSITORY TYPE CODE TESTS RESULT OUT OF RANGE REFERENCE UNITS LAB 97479457(L 3.6-11.0 E3/mcL OINC) Normal WBC 9.6 LAB 45566235(L 3.90-6.10 E6/mcL OINC) Normal RBC 4.26 LAB 88387386(L 13.5-18.0 G/DL OINC) Low Hgb 12.2 LAB 75609477(L 42.0-52.0 % OINC) Low Hct 36.2 LAB 63416425(L 11.5-14.5 % OINC) High RDW 15.1 LAB 26589473(L 27.0-31.0 pg OINC) Normal MCH 28.6 LAB 65081036(L 33.0-37.0 G/DL OINC) Normal MCHC 33.7 LAB 77701090(L 78.0-100.0 fL OINC) Normal MCV 84.9 LAB 19732577(L 7.4-11.0 fL OINC) Normal MPV 7.5 LAB 06940130(L 130-400 E3/mcL OINC) Normal Platelet 141 Performed By: #### [id number] #### TY Rem[facility] [address] [place] [address] AUTO DIFF Collected: 09/06/2018 Status: F Source: YAZIDISM 4:39 AM [facility] REPOSITORY Order Comment: Order Added by Discern Expert. TYPE CODE TESTS RESULT OUT OF RANGE REFERENCE UNITS LAB 23638763(L 37.0-75.0 % OINC) High Neutro Auto 81.9 LAB 18240819(L 20.0-55.0 % OINC) Low Lymph Auto 9.3 LAB 19148630(L 0.0-10.0 % OINC) Normal Wayne Auto 7.0 LAB 81512639(L 0.0-11.0 % OINC) Normal Eos Auto 1.5 LAB 33339033(L 0.0-2.0 % OINC) Normal Basophil Auto 0.3 LAB 91726220(L 1.4-6.5 E3/mcL OINC) High Neutro 7.9 Absolute LAB 20756406(L 1.2-3.4 E3/mcL OINC) Low Lymph Absolute 0.9 LAB 63275713(L 0.0-0.7 E3/mcL OINC) Normal Wayne Absolute 0.7 LAB 36922157(L 0.0-0.7 E3/mcL OINC) Normal Eos Absolute 0.1 LAB 16138930(L 0.0-0.2 E3/mcL OINC) Normal Basophil 0.0 Absolute Performed By: #### [id number] #### TY Rem[facility]emo [address] [place] [address] TROPONIN-I Collected: 09/06/2018 Status: F Source: YAZIDISM 4:39 AM [facility] REPOSITORY TYPE CODE TESTS RESULT OUT OF RANGE REFERENCE UNITS LAB 18082610(LO .00-.03 ng/mL INC) Normal .03 Troponin-I Performed By: #### [id number] #### TY [facility] [place] [address] CMP Collected: 09/06/2018 Status: F Source: YAZIDISM 4:39 AM [facility] REPOSITORY TYPE CODE TESTS RESULT OUT OF RANGE REFERENCE UNITS LAB 94316734(L 70-99 mg/dL OINC) High Glucose Lvl 101 LAB 57136357(L 6-23 mg/dL OINC) BUN Normal 17 LAB 4294222(LO 0.6-1.3 mg/dL INC) Normal Creatinine 1.1 LAB 63914355(L 8.6-10.3 mg/dL OINC) Calcium Normal Lvl 8.8 LAB 64230854(L 136-145 mEq/L OINC) Low Sodium Lvl 128 LAB 27426525(L 3.5-5.3 mEq/L OINC) Normal Potassium Lvl 4.0 LAB 83160069(L 98-107 mEq/L OINC) Low Chloride 93 LAB 74528281(L 21.0-32.0 mEq/L OINC) CO2 Normal 29.0 LAB 24670722(L 33-136 Int._Unit/ OINC) L Alk Phos Normal 105 LAB 19264562(L 0.0-1.2 mg/dL OINC) High Bili Total 1.3 LAB 29281999(L 3.4-5.0 G/DL OINC) Low Albumin Lvl 3.2 LAB 27946432(L 6.4-8.2 gm/dL OINC) Low Total Protein 6.2 LAB 20134429(L 10-52 Int._Unit/ OINC) L ALT Normal 49 LAB 23256384(L 9-39 Int._Unit/ OINC) High L AST 56 LAB 63906398(L 5.4-30.0 ratio OINC) Normal BUN/Creat Ratio 15.5 LAB 18473079(L 2.0-4.0 G/DL OINC) Globulin Normal 3.0 LAB 80503909(L 1.1-1.9 ratio OINC) A/G Normal Ratio 1.1 LAB 92999004(L 10-20 mEq/L OINC) AGAP Normal 10 Performed By: #### [id number] #### TY [employer] [facility] [place] [address] EGFR Collected: 09/06/2018 Status: F Source: YAZIDISM 4:39 AM [facility] REPOSITORY Order Comment: Order added by Discern Expert. TYPE CODE TESTS RESULT OUT OF RANGE REFERENCE UNITS LAB 23410321(LO mL/min/1.73 INC) m2 Normal eGFR >60 LAB 91940751(LO mL/min/1.73 INC) m2 Normal eGFR AA >60 Performed By: #### [id number] #### [facility]Y [facility] [address] [place] [address] TSH Collected: 09/06/2018 Status: F Source: YAZIDISM 4:30 AM [facility] REPOSITORY Order Comment: OK to use blood already in lab if able, thanks TYPE CODE TESTS RESULT OUT OF RANGE REFERENCE UNITS LAB 43989879(LO 0.30-5.60 mcIU/mL INC) Normal TSH 4.19 Performed By: #### [id number] #### TY [employer] [facility] [place] [address] MAGNESIUM Collected: 09/06/2018 Status: F Source: YAZIDISM 4:30 AM [facility] REPOSITORY Order Comment: OK to use blood already in lab if able, thanks TYPE CODE TESTS RESULT OUT OF RANGE REFERENCE UNITS LAB 66302961(L 1.6-2.4 Int._Unit/L OINC) Normal Magnesium 1.8 Performed By: #### [id number] #### TY [employer] [facility] [place] [address] CT CHEST WITH Observed: 07/24/2018 Status: F Source: [facility] 12:52 PM [facility] REPOSITORY EXAM: CT CHEST WITH CONTRAST, 07/24/2018 09:34 AM COMPARISON: May 21, 2018, and April 04, 2014. 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 Malignancy; TECHNIQUE: Following the administration of intravenous contrast, axial CT images were reconstructed from the volumetric data set, from the thoracic inlet through the adrenal glands. Coronal MIP images were also reconstructed. CONTRAST: iohexol (OMNIPAQUE) 350 MG/ML injection 1-171 mL; Route of Administration: Intravenous; Dose: 50 mL. This patient underwent a CT examination using radiation exposure as low as reasonably achievable. CTDIvol and DLP radiation exposure values for each series were: Exposure: 1; Series: 2; Anatomy: Chest; Phantom: 32 cm; CTDIvol: 3; DLP: [address] are the volume Computed Tomography (CT) Dose Index (CTDIvol) and the Dose Length Product (DLP), and are measured in units of mGy and mGy-cm, respectively. These indicators are not patient dose, but values generated from the CT scanner acquisition factors and may substantially underestimate or overestimate the absorbed dose based on patient size and other factors. FINDINGS: Lungs and Pleura: Interval improvement in consolidation in the left lower lobe. Focal segmental varicoid bronchiectatic changes in the left lower lobe, with bronchial wall thickening and air-fluid levels within the dilated bronchi (series 2, image 49). Patchy groundglass consolidative opacities in the left lower lobe. Peripheral fibrotic changes in the lungs, characterized by irregular reticulations, ground glass opacities, and traction bronchiolectasis. Interval decrease in the right upper lobe nodule, measuring 5 x 3 mm (series 2, image 25), previously measuring 10 x 7 mm Scattered calcified granulomas in the bilateral lungs. Interval resolution of small bilateral pleural effusions. There is no pneumothorax. Tracheobronchial tree: The central tracheobronchial tree is patent. Mediastinum/Layla: There are no enlarged mediastinal or hilar lymph nodes. The visualized inferior aspect of the thyroid gland is unremarkable. The esophagus is decompressed and otherwise unremarkable. Axilla and Supraclavicular Region: No axillary or supraclavicular adenopathy. Cardiovascular: The heart and cardiac chambers are normal in size. There is no pericardial effusion. There are multivessel coronary artery calcifications. There are moderate atherosclerotic changes of the thoracic aorta and great vessels. The visualized central pulmonary arteries are unremarkable. Upper Abdomen: The visualized aspects of the liver, spleen, pancreas, bilateral adrenal glands, and right superior kidney are unremarkable. Bones and Soft Tissue: There is diffuse osteopenia, which limits the evaluation of osteolytic lesions. There are moderate degenerative changes of the thoracic spine. The visualized subcutaneous tissues of the chest wall appear unremarkable. IMPRESSION: 1. Interval improvement in previously described masslike consolidation in the left lower lobe. 2. Varicoid bronchiectatic changes in the left lower lobe, with associated bronchial wall thickening and fluid levels in the dilated bronchi. 3. Interval resolution of the bilateral pleural effusions. 4. Interval decrease in the right upper lobe lung nodule, which now measures up to 5 mm. 5. Peripheral predominant fibrotic changes in the bilateral lungs. 6. Multivessel coronary artery disease. *CRE/GFR POC DEVICE Collected: 07/24/2018 Status: F Source: [facility] 9:11 AM [facility] REPOSITORY TYPE CODE TESTS RESULT OUT OF REFERENCE UNITS RANGE LAB CREPC 0.70-1.30 mg/dL Creatinine (poc 1.03 device) LAB GFRPC >60 mL/min/1.7 3 sq m est GFR, (poc device) >60 LAB PCSTYP *POC SAMPLE TYPE Venous UA COMPLETE Collected: 07/13/2018 Status: F Source: [place]AZIDISM 10:47 AM [facility] REPOSITORY TYPE CODE TESTS RESULT OUT OF RANGE REFERENCE UNITS LAB 29828257( Yellow LOINC) Normal UA Color Yellow LAB 75170125( Clear LOINC) UA Clarity Abnormal SltCloudy LAB 48193757( Negative LOINC) Normal UA Glucose Negative LAB 90148104( Negative LOINC) Normal UA Bili Negative LAB 82252651( Negative LOINC) Normal UA Ketones Negative LAB 68617214( 1.003-1.030 LOINC) Normal UA Spec Grav 1.012 LAB 49775789( 4.6-8.0 LOINC) Normal UA pH 7.0 LAB 23655867( Negative LOINC) Normal UA Protein Negative LAB 45572787( LOINC) Normal UA Urobilinogen Negative LAB 48730480( Negative LOINC) Normal UA Nitrite Negative LAB 72979828( Negative LOINC) Normal UA Blood 3+ LAB 84256605( Negative LOINC) UA Leuk Est 3+ Abnormal LAB 36418002( 0-3 /HPF LOINC) UA RBC Abnormal >50 LAB 68646376( 0-5 /HPF LOINC) UA WBC Abnormal 20-50 LAB 60075869( 0-2 /LPF LOINC) Normal UA Hyal Cast 0-2 LAB 03660034( None /HPF LOINC) UA Bacteria Abnormal Trace LAB 70380349( Trace /LPF LOINC) UA Mucous Abnormal Trace Performed By: #### [id number] #### TY Urinalysis Automated Subsection [address] [place] [address] Observed: 07/13/2018 Status: F Source: [place] URINE 10:45 AM [facility] REPOSITORY Final Report: No growth Performed By: #### [id number] #### TY Microbiology Subsection [address] [place] [address] Observed: 07/04/2018 Status: F Source: [facility] URINE 7:30 AM [facility] REPOSITORY Final Report: >100,000 cfu/ml Klebsiella pneumoniae >100,000 cfu/ml Pseudomonas aeruginosa ORGANISM: Klepne ORGANISM: PA SUSCEPTIBILITY RESULTS Antibiotic SUZANNE Dilutn SUZANNE Interp ORGANISM: Klepne Amox/Cla : <=8/4 S Amp : >16 R Amp/Sul : <=8/4 S Cefaz : <=8 S Cefo : <=2 S Cipro : <=1 S Gent : <=4 S Levo : <=2 S Ana M : <=1 S Nitro : <=32 S Pip/Juancarlos : <=16 S Tetra : <=4 S Tobra : <=4 S SXT : <=2/38 S ORGANISM: PA Ceftaz : <=1 S Cipro : <=1 S Gent : 8 I Levo : <=2 S Ana M : <=1 S Pip/Juancarlos : <=16 S Tobra : <=4 S Performed By: #### [id number] #### TY Microbiology Subsection [address] [place] [id number] CBC W/ AUTO DIFF Collected: 07/04/2018 Status: F Source: [place]ISM 7:29 AM [facility] REPOSITORY TYPE CODE TESTS RESULT OUT OF RANGE REFERENCE UNITS LAB 96369613(L 3.6-11.0 E3/mcL OINC) Normal WBC 7.9 LAB 09897461(L 3.90-6.10 E6/mcL OINC) Normal RBC 4.00 LAB 54765044(L 13.5-18.0 G/DL OINC) Low Hgb 11.7 LAB 37967206(L 42.0-52.0 % OINC) Low Hct 35.4 LAB 38768414(L 11.5-14.5 % OINC) High RDW 15.4 LAB 60050533(L 27.0-31.0 pg OINC) Normal MCH 29.3 LAB 31249871(L 33.0-37.0 G/DL OINC) Normal MCHC 33.1 LAB 50131092(L 78.0-100.0 fL OINC) Normal MCV 88.3 LAB 05204485(L 7.4-11.0 fL OINC) Normal MPV 8.1 LAB 60679531(L 130-400 E3/mcL OINC) Normal Platelet 250 Performed By: #### [id number] #### TY Rem[facility] [address] [place], [place] [address] AUTO DIFF Collected: 07/04/2018 Status: F Source: [place] 7:29 AM [facility] REPOSITORY Order Comment: Order Added by Discern Expert. TYPE CODE TESTS RESULT OUT OF RANGE REFERENCE UNITS LAB 48054855(L 37.0-75.0 % OINC) Normal Neutro Auto 62.9 LAB 83169204(L 20.0-55.0 % OINC) Normal Lymph Auto 23.5 LAB 77595077(L 0.0-10.0 % OINC) Normal Wayne Auto 9.5 LAB 30926258(L 0.0-11.0 % OINC) Normal Eos Auto 3.6 LAB 70431825(L 0.0-2.0 % OINC) Normal Basophil Auto 0.5 LAB 92000167(L 1.4-6.5 E3/mcL OINC) Normal Neutro 4.9 Absolute LAB 40362165(L 1.2-3.4 E3/mcL OINC) Normal Lymph Absolute 1.9 LAB 29299420(L 0.0-0.7 E3/mcL OINC) Normal Wayne Absolute 0.7 LAB 57633732(L 0.0-0.7 E3/mcL OINC) Normal Eos Absolute 0.3 LAB 14441915(L 0.0-0.2 E3/mcL OINC) Normal Basophil 0.0 Absolute Performed By: #### [id number] #### TY Rem[facility]emo [address] [id number] BMP Collected: 07/04/2018 Status: F Source: [place] 7:29 AM [facility] REPOSITORY TYPE CODE TESTS RESULT OUT OF RANGE REFERENCE UNITS LAB 96091429(L 70-99 mg/dL OINC) Glucose Normal Lvl 85 LAB 42197971(L 8.4-10.2 mg/dL OINC) Calcium Normal Lvl 9.2 LAB 48025732(L 136-145 mEq/L OINC) Sodium Normal Lvl 138 LAB 29040475(L 3.5-5.1 mEq/L OINC) Normal Potassium Lvl 3.9 LAB 33090956(L 98-107 mEq/L OINC) Chloride Normal 98 LAB 98574247(L 24.0-30.0 mEq/L OINC) High CO2 31.5 LAB 57350954(L 7-18 mg/dL OINC) BUN Normal 13 LAB 8953919(LO 0.6-1.3 mg/dL INC) Normal Creatinine 1.0 LAB 62809618(L 5.4-30.0 ratio OINC) Normal BUN/Creat Ratio 13.0 Performed By: #### [id number] #### TY [facility] [place] [address] EGFR Collected: 07/04/2018 Status: F Source: [place]ISM 7:29 [facility] REPOSITORY Order Comment: Order added by Discern Expert. TYPE CODE TESTS RESULT OUT OF RANGE REFERENCE UNITS LAB 45692042(LO mL/min/1.73 INC) m2 Normal eGFR >60 LAB 78474905(LO mL/min/1.73 INC) m2 Normal eGFR AA >60 Performed By: #### [id number] #### TY [facility] [place] [address] MAGNESIUM Collected: 07/04/2018 Status: F Source: [place] 7:29 AM [facility] REPOSITORY TYPE CODE TESTS RESULT OUT OF RANGE REFERENCE UNITS LAB 22954724(L 1.7-2.8 mg/dL OINC) Normal Magnesium 1.9 Performed By: #### [id number] #### TY [facility] [place] [address] UA COMPLETE Collected: 07/04/2018 Status: F Source: [place] 7:29 AM [facility] REPOSITORY TYPE CODE TESTS RESULT OUT OF RANGE REFERENCE UNITS LAB 72051205( Yellow LOINC) Normal UA Color Yellow LAB 43167858( Clear LOINC) UA Clarity Abnormal Turbid LAB 66461127( Negative LOINC) Normal UA Glucose Negative LAB 91565270( Negative LOINC) Normal UA Bili Negative LAB 32274631( Negative LOINC) Normal UA Ketones Negative LAB 02204840( 1.003-1.030 LOINC) Normal UA Spec Grav 1.010 LAB 26408051( 4.6-8.0 LOINC) Normal UA pH 6.0 LAB 00129939( Negative LOINC) UA Protein Abnormal 2+ LAB 07229325( LOINC) Normal UA Urobilinogen Negative LAB 58574392( Negative LOINC) UA Nitrite Abnormal Positive LAB 35480031( Negative LOINC) UA Blood Abnormal 2+ LAB 58585600( Negative LOINC) UA Leuk Est Abnormal 3+ LAB 85302953( 0-3 /HPF LOINC) UA RBC Abnormal 20-50 LAB 36575684( 0-5 /HPF LOINC) UA WBC Abnormal >50 LAB 74500311( None /HPF LOINC) UA Bacteria Abnormal 3+ LAB 74194299( Trace /LPF LOINC) UA Mucous Abnormal Trace LAB 27907133( None /HPF LOINC) UA WBC Abnormal Clump Many Performed By: #### [id number] #### TY Urinalysis Automated Subsection [facility] [place] [id number] UA COMPLETE Collected: 06/22/2018 Status: F Source: [facility] 7:20 AM [facility] REPOSITORY TYPE CODE TESTS RESULT OUT OF RANGE REFERENCE UNITS LAB 57745615( Yellow LOINC) UA Color Anna Abnormal LAB 19902673( Clear LOINC) UA Clarity Abnormal Turbid LAB 29471219( Negative LOINC) Normal UA Glucose Negative LAB 07321279( Negative LOINC) Normal UA Bili Negative LAB 02592421( Negative LOINC) Normal UA Ketones Negative LAB 97238520( 1.003-1.030 LOINC) Normal UA Spec 1.016 Grav LAB 74005973( 4.6-8.0 LOINC) Normal UA pH 5.0 LAB 05523775( Negative LOINC) UA Protein 2+ Abnormal LAB 24426121( LOINC) Normal UA Urobilinogen Negative LAB 62678434( Negative LOINC) UA Nitrite Abnormal Positive LAB 78164066( Negative LOINC) Normal UA Blood 3+ LAB 91526681( Negative LOINC) UA Leuk Est 2+ Abnormal LAB 07014476( 0-3 /HPF LOINC) UA RBC >50 Abnormal LAB 72326830( 0-5 /HPF LOINC) UA WBC >50 Abnormal LAB 70465155( None /HPF LOINC) UA Bacteria 2+ Abnormal LAB 71213298( Trace /LPF LOINC) UA Mucous Abnormal Occasional LAB 77892953( None /HPF LOINC) UA WBC Many Abnormal Clump Performed By: #### [id number] #### TY Urinalysis Automated Subsection [facility] [place] [address] Observed: 06/22/2018 Status: F Source: [facility] C URINE 7:20 AM [facility] REPOSITORY Final Report: >100,000 cfu/ml Klebsiella pneumoniae ORGANISM: Klepne SUSCEPTIBILITY RESULTS Antibiotic SUZANNE Dilutn SUZANNE Interp ORGANISM: Klepne Amox/Cla : <=8/4 S Amp : >16 R Amp/Sul : <=8/4 S Cefaz : <=8 S Cefo : <=2 S Cipro : <=1 S Gent : <=4 S Levo : <=2 S Ana M : <=1 S Nitro : <=32 S Pip/Juancarlos : <=16 S Tetra : <=4 S Tobra : <=4 S SXT : <=2/38 S Performed By: #### [id number] #### TY Microbiology Subsection [address] [place] [address] GI PANEL Collected: 06/21/2018 Status: F Source: [facility] 10:41 [facility] REPOSITORY TYPE CODE TESTS RESULT OUT OF RANGE REFERENCE UNITS LAB 465496453 (LOINC) Campylobacter Normal Not Detected LAB 320958953 (LOINC) Clostridium difficile Abnormal toxin A/B Detected LAB 050250133 (LOINC) Plesiomonas Normal shigelloides Not Detected LAB 972954658 (LOINC) Salmonella Normal Not Detected LAB 697017177 (LOINC) Vibrio Normal Not Detected LAB 726478311 (LOINC) Vibrio cholerae Normal Not Detected LAB 428429118 (LOINC) Yersinia Normal enterocolitica Not Detected LAB 277295603 (LOINC) Enteroaggregatvie E Normal coli (EAEC) Not Detected LAB 195958255 (LOINC) Enteropathogenic E Normal Coli (EPEC) Not Detected LAB 550322535 (LOINC) Enterotoxigenci E Normal coli (ETEC)lt/st Not Detected LAB 513233364 (LOINC) Shiga-like Normal toxin-producing E Not coli (STEC) Detected LAB 940213053 (LOINC) Shigella/Enteroinvasi Normal ve E coli (EIEC) Not Detected LAB 224156525 (LOINC) Cryptosporidium Normal Not Detected LAB 617528305 (LOINC) Cyclospora Normal cayetanensis Not Detected LAB 732654474 (LOINC) Entamoeba histolytica Normal Not Detected LAB 744741044 (LOINC) Giardia lamblia Normal Not Detected LAB 595634274 (LOINC) Adenovirus F40/41 Normal Not Detected LAB 047861872 (LOINC) Astrovirus Normal Not Detected LAB 236959246 (LOINC) Norovirus GI/GII Normal Not Detected LAB 658557532 (LOINC) Rotavirus A Normal Not Detected Result Comment: The performance of the Film[employer] GI Panel has not been established in individuals who received Rotavirus A vaccine. Recent oral administration of a Rotavirus A vaccine may cause positiv e results for Rotavirus A if the virus is passed in the stool. Note: A negative Film[employer] GI Panel does not exclude the possibility of gastrointestinal infection. LAB 110926205(LOINC) Normal Sapovirus Not Detected LAB 194039128(LOINC) E Normal coli 0157 Not Detected Performed By: #### [id number] #### TY Misc Micro SubSection , CMP Collected: 06/15/2018 Status: F Source: [facility] 6:00 AM [facility] REPOSITORY TYPE CODE TESTS RESULT OUT OF RANGE REFERENCE UNITS LAB 89803936(L 70-99 mg/dL OINC) Glucose Normal Lvl 95 LAB 76135004(L 7-18 mg/dL OINC) BUN Normal 15 LAB 8182266(LO 0.6-1.3 mg/dL INC) Normal Creatinine 0.8 LAB 26602073(L 8.4-10.2 mg/dL OINC) Calcium Normal Lvl 8.8 LAB 46920847(L 136-145 mEq/L OINC) Sodium Normal Lvl 141 LAB 34403545(L 3.5-5.1 mEq/L OINC) Normal Potassium Lvl 3.9 LAB 66174634(L 98-107 mEq/L OINC) Chloride Normal 101 LAB 81809892(L 24.0-30.0 mEq/L OINC) High CO2 31.4 LAB 82949276(L 42-121 Int._Unit/ OINC) L Alk Phos Normal 81 LAB 79221120(L 0.2-1.0 mg/dL OINC) Bili Normal Total 0.9 LAB 49827341(L 3.2-5.0 G/DL OINC) Low Albumin Lvl 2.8 LAB 39820882(L 6.4-8.3 G/DL OINC) Low Total Protein 6.1 LAB 73028123(L 10-40 Int._Unit/ OINC) L ALT Normal 19 LAB 68792436(L 10-42 Int._Unit/ OINC) L AST Normal 17 LAB 48219563(L 5.4-30.0 ratio OINC) Normal BUN/Creat Ratio 18.8 LAB 72048910(L 2.0-4.0 G/DL OINC) Globulin Normal 3.3 LAB 72454707(L 1.1-1.9 ratio OINC) Low A/G Ratio 0.8 Performed By: #### [id number] #### TY [employer] [facility] [place] [id number] EGFR Collected: 06/15/2018 Status: F Source: [facility] 6:00 AM [facility] REPOSITORY Order Comment: Order added by Discern Expert. TYPE CODE TESTS RESULT OUT OF RANGE REFERENCE UNITS LAB [id number](LO mL/min/1.73 INC) m2 Normal eGFR >60 LAB 13723922(LO mL/min/1.73 INC) m2 Normal eGFR AA >60 Performed By: #### [id number] #### TY [facility] [address] [place] [id number] CBC W/ AUTO DIFF Collected: 06/15/2018 Status: F Source: [place] 6:00 AM [facility] REPOSITORY TYPE CODE TESTS RESULT OUT OF RANGE REFERENCE UNITS LAB 88767082(L 3.6-11.0 E3/mcL OINC) Normal WBC 6.7 LAB 58826019(L 3.90-6.10 E6/mcL OINC) Low RBC 3.81 LAB 40035707(L 13.5-18.0 G/DL OINC) Low Hgb 11.2 LAB 20161034(L 42.0-52.0 % OINC) Low Hct 34.0 LAB 85816839(L 11.5-14.5 % OINC) High RDW 14.7 LAB 05687101(L 27.0-31.0 pg OINC) Normal MCH 29.5 LAB 19990259(L 33.0-37.0 G/DL OINC) Normal MCHC 33.1 LAB 05683390(L 78.0-100.0 fL OINC) Normal MCV 89.3 LAB 74181574(L 7.4-11.0 fL OINC) Normal MPV 7.6 LAB 37659174(L 130-400 E3/mcL OINC) Normal Platelet 265 Performed By: #### [id number] #### TY RemHemo [address] [id number] AUTO DIFF Collected: 06/15/2018 Status: F Source: [place] 6:00 AM [facility] REPOSITORY Order Comment: Order Added by Discern Expert. TYPE CODE TESTS RESULT OUT OF RANGE REFERENCE UNITS LAB 86416624(L 37.0-75.0 % OINC) Normal Neutro Auto 64.2 LAB 27767146(L 20.0-55.0 % OINC) Normal Lymph Auto 23.2 LAB 83421091(L 0.0-10.0 % OINC) Normal Wayne Auto 9.8 LAB 17763832(L 0.0-11.0 % OINC) Normal Eos Auto 2.3 LAB 47303648(L 0.0-2.0 % OINC) Normal Basophil Auto 0.5 LAB 74808929(L 1.4-6.5 E3/mcL OINC) Normal Neutro 4.3 Absolute LAB 86919418(L 1.2-3.4 E3/mcL OINC) Normal Lymph Absolute 1.6 LAB 87014684(L 0.0-0.7 E3/mcL OINC) Normal Wayne Absolute 0.7 LAB 04031084(L 0.0-0.7 E3/mcL OINC) Normal Eos Absolute 0.2 LAB 80660172(L 0.0-0.2 E3/mcL OINC) Normal Basophil 0.0 Absolute Performed By: #### [id number] #### [facility] [place] [address] CBC W/ AUTO DIFF Collected: 06/12/2018 Status: F Source: [place] 8:08 AM [facility] REPOSITORY TYPE CODE TESTS RESULT OUT OF RANGE REFERENCE UNITS LAB 67047609(L 3.6-11.0 E3/mcL OINC) Normal WBC 5.7 LAB 83219989(L 3.90-6.10 E6/mcL OINC) Low RBC 3.60 LAB 99250780(L 13.5-18.0 G/DL OINC) Low Hgb 10.7 LAB 13792619(L 42.0-52.0 % OINC) Low Hct 31.7 LAB 59245282(L 11.5-14.5 % OINC) High RDW 15.2 LAB 21977404(L 27.0-31.0 pg OINC) Normal MCH 29.7 LAB 43870931(L 33.0-37.0 G/DL OINC) Normal MCHC 33.7 LAB 66635340(L 78.0-100.0 fL OINC) Normal MCV 88.3 LAB 17836420(L 7.4-11.0 fL OINC) Normal MPV 8.0 LAB 12025931(L 130-400 E3/mcL OINC) Normal Platelet 249 Performed By: #### [id number] #### TY BarbosaHemo [address] [place] [address] AUTO DIFF Collected: 06/12/2018 Status: F Source: [place] 8:08 AM [facility] REPOSITORY Order Comment: Order Added by Discern Expert. TYPE CODE TESTS RESULT OUT OF RANGE REFERENCE UNITS LAB 94473781(L 37.0-75.0 % OINC) Normal Neutro Auto 58.6 LAB 83185251(L 20.0-55.0 % OINC) Normal Lymph Auto 27.7 LAB 00024080(L 0.0-10.0 % OINC) Normal Wayne Auto 10.0 LAB 11105246(L 0.0-11.0 % OINC) Normal Eos Auto 3.2 LAB 61410518(L 0.0-2.0 % OINC) Normal Basophil Auto 0.5 LAB 09643128(L 1.4-6.5 E3/mcL OINC) Normal Neutro 3.4 Absolute LAB 16213992(L 1.2-3.4 E3/mcL OINC) Normal Lymph Absolute 1.6 LAB 64824808(L 0.0-0.7 E3/mcL OINC) Normal Wayne Absolute 0.6 LAB 50128050(L 0.0-0.7 E3/mcL OINC) Normal Eos Absolute 0.2 LAB 02448635(L 0.0-0.2 E3/mcL OINC) Normal Basophil 0.0 Absolute Performed By: #### [id number] #### TY Bains [address] [place] [address] BMP Collected: 06/12/2018 Status: F Source: [facility] 8:08 AM [facility] REPOSITORY TYPE CODE TESTS RESULT OUT OF RANGE REFERENCE UNITS LAB 53179634(L 70-99 mg/dL OINC) Glucose Normal Lvl 90 LAB 72433666(L 7-18 mg/dL OINC) BUN Normal 16 LAB 2354667(LO 0.6-1.3 mg/dL INC) Normal Creatinine 0.9 LAB 68854671(L 5.4-30.0 ratio OINC) Normal BUN/Creat Ratio 17.8 LAB 93222869(L 8.4-10.2 mg/dL OINC) Calcium Normal Lvl 9.2 LAB 81568956(L 136-145 mEq/L OINC) Sodium Normal Lvl 144 LAB 49158800(L 3.5-5.1 mEq/L OINC) Normal Potassium Lvl 4.1 LAB 48135165(L 98-107 mEq/L OINC) Chloride Normal 103 LAB 96944995(L 24.0-30.0 mEq/L OINC) High CO2 33.2 Performed By: #### [id number] #### TY [facility] [address] [place] [address] EGFR Collected: 06/12/2018 Status: F Source: [place] 8:08 AM [facility] REPOSITORY Order Comment: Order added by Discern Expert. TYPE CODE TESTS RESULT OUT OF RANGE REFERENCE UNITS LAB 37754717(LO mL/min/1.73 INC) m2 Normal eGFR >60 LAB 58596410(LO mL/min/1.73 INC) m2 Normal eGFR AA >60 Performed By: #### [id number] #### TY Rem[facility] [place] [address] MAGNESIUM Collected: 06/12/2018 Status: F Source: [place] 8:08 AM [facility] REPOSITORY TYPE CODE TESTS RESULT OUT OF RANGE REFERENCE UNITS LAB 24516052(L 1.7-2.8 mg/dL OINC) Normal Magnesium 2.0 Performed By: #### [id number] #### TY Rem[employer] [facility] [place] [address] CBC W/ AUTO DIFF Collected: 06/01/2018 Status: F Source: [place] 11:31 AM [facility] REPOSITORY TYPE CODE TESTS RESULT OUT OF RANGE REFERENCE UNITS LAB 18340108(L 3.6-11.0 E3/mcL OINC) Normal WBC 6.3 LAB 17363815(L 3.90-6.10 E6/mcL OINC) Low RBC 3.49 LAB 39284037(L 13.5-18.0 G/DL OINC) Low Hgb 10.5 LAB 47424829(L 42.0-52.0 % OINC) Low Hct 30.7 LAB 90071666(L 11.5-14.5 % OINC) Normal RDW 14.5 LAB 74748139(L 27.0-31.0 pg OINC) Normal MCH 29.9 LAB 64050892(L 33.0-37.0 G/DL OINC) Normal MCHC 34.0 LAB 00208523(L 78.0-100.0 fL OINC) Normal MCV 87.9 LAB 66634219(L 7.4-11.0 fL OINC) Low MPV 7.0 LAB 84787537(L 130-400 E3/mcL OINC) Normal Platelet 332 Performed By: #### [id number] #### [facility] [place] [address] AUTO DIFF Collected: 06/01/2018 Status: F Source: [place] 11:31 AM [facility] REPOSITORY Order Comment: Order Added by Discern Expert. TYPE CODE TESTS RESULT OUT OF RANGE REFERENCE UNITS LAB 98057166(L 37.0-75.0 % OINC) Normal Neutro Auto 66.6 LAB 95260241(L 20.0-55.0 % OINC) Normal Lymph Auto 23.3 LAB 91124855(L 0.0-10.0 % OINC) Normal Wayne Auto 7.9 LAB 03207231(L 0.0-11.0 % OINC) Normal Eos Auto 1.5 LAB 29303358(L 0.0-2.0 % OINC) Normal Basophil Auto 0.7 LAB 69517943(L 1.4-6.5 E3/mcL OINC) Normal Neutro 4.2 Absolute LAB 05191054(L 1.2-3.4 E3/mcL OINC) Normal Lymph Absolute 1.5 LAB 78416169(L 0.0-0.7 E3/mcL OINC) Normal Wayne Absolute 0.5 LAB 02779807(L 0.0-0.7 E3/mcL OINC) Normal Eos Absolute 0.1 LAB 09590909(L 0.0-0.2 E3/mcL OINC) Normal Basophil 0.0 Absolute Performed By: #### [id number] #### TYWendy BarbosaHemo [facility] [place] [id number] CMP Collected: 06/01/2018 Status: F Source: [place] 11:31 AM [facility] REPOSITORY TYPE CODE TESTS RESULT OUT OF RANGE REFERENCE UNITS LAB 94008356(L 70-99 mg/dL OINC) Glucose Normal Lvl 75 LAB 93117070(L 7-18 mg/dL OINC) BUN Normal 7 LAB 7452312(LO 0.6-1.3 mg/dL INC) Normal Creatinine 0.8 LAB 04170348(L 8.4-10.2 mg/dL OINC) Calcium Normal Lvl 8.5 LAB 84237741(L 136-145 mEq/L OINC) Sodium Normal Lvl 139 LAB 54230830(L 3.5-5.1 mEq/L OINC) Normal Potassium Lvl 3.6 LAB 69870828(L 98-107 mEq/L OINC) Chloride Normal 99 LAB 94248136(L 24.0-30.0 mEq/L OINC) High CO2 31.6 LAB 74089271(L 3.2-5.0 G/DL OINC) Low Albumin Lvl 2.5 LAB 81791977(L 5.4-30.0 ratio OINC) Normal BUN/Creat Ratio 8.8 LAB 36481641(L 42-121 Int._Unit/ OINC) L Alk Phos Normal 70 LAB 99035978(L 0.2-1.0 mg/dL OINC) Bili Normal Total 0.6 LAB 45536977(L 6.4-8.3 G/DL OINC) Low Total Protein 5.6 LAB 26099364(L 10-40 Int._Unit/ OINC) L ALT Normal 34 LAB 30141115(L 10-42 Int._Unit/ OINC) L AST Normal 28 LAB 77981756(L 2.0-4.0 G/DL OINC) Globulin Normal 3.1 LAB 84889430(L 1.1-1.9 ratio OINC) Low A/G Ratio 0.8 Performed By: #### [id number] #### TY [employer] [place] [place] [address] EGFR Collected: 06/01/2018 Status: F Source: [place] 11:31 AM [facility] REPOSITORY Order Comment: Order added by Discern Expert. TYPE CODE TESTS RESULT OUT OF RANGE REFERENCE UNITS LAB 20577215(LO mL/min/1.73 INC) m2 Normal eGFR >60 LAB 24426773(LO mL/min/1.73 INC) m2 Normal eGFR AA >60 Performed By: #### [id number] #### TY [facility] [address] [place] [address] GI PANEL Collected: 06/01/2018 Status: F Source: [place] 11:31 AM [facility] REPOSITORY TYPE CODE TESTS RESULT OUT OF REFERENCE UNITS RANGE LAB 365608564 (LOINC) Campylobacter Normal Not Detected LAB 948297963 (LOINC) Clostridium difficile Normal toxin A/B Not Detected LAB 266835623 (LOINC) Plesiomonas Normal shigelloides Not Detected LAB 005572875 (LOINC) Salmonella Normal Not Detected LAB 045389657 (LOINC) Vibrio Normal Not Detected LAB 232199299 (LOINC) Vibrio cholerae Normal Not Detected LAB 764245987 (LOINC) Yersinia Normal enterocolitica Not Detected LAB 011882942 (LOINC) Enteroaggregatvie E Normal coli (EAEC) Not Detected LAB 330261989 (LOINC) Enteropathogenic E Normal Coli (EPEC) Not Detected LAB 267900676 (LOINC) Enterotoxigenci E coli Normal (ETEC)lt/st Not Detected LAB 543472600 (LOINC) Shiga-like Normal toxin-producing E coli Not Detected (STEC) LAB 497140930 (LOINC) Shigella/Enteroinvasiv Normal e E coli (EIEC) Not Detected LAB 906108220 (LOINC) Cryptosporidium Normal Not Detected LAB 925096136 (LOINC) Cyclospora Normal cayetanensis Not Detected LAB 381865935 (LOINC) Entamoeba histolytica Normal Not Detected LAB 323508116 (LOINC) Giardia lamblia Normal Not Detected LAB 626958125 (LOINC) Adenovirus F40/41 Normal Not Detected LAB 104433908 (LOINC) Astrovirus Normal Not Detected LAB 067588454 (LOINC) Norovirus GI/GII Normal Not Detected LAB 573017748 (LOINC) Rotavirus A Normal Not Detected Result Comment: The performance of the FilmArray GI Panel has not been established in individuals who received Rotavirus A vaccine. Recent oral administration of a Rotavirus A vaccine may cause positiv e results for Rotavirus A if the virus is passed in the stool. Note: A negative FilmArray GI Panel does not exclude the possibility of gastrointestinal infection. LAB 305764833(LOINC) Normal Sapovirus Not Detected LAB 773810679(LOINC) E Normal coli 0157 Not Detected Performed By: #### [id number] #### TY Misc Micro SubSection , XR ABDOMEN 1 VIEW Observed: 05/30/2018 Status: F Source: [facility] 12:51 PM [facility] REPOSITORY EXAM: XR ABDOMEN 1 VIEW PORTABLE, 05/30/2018 12:38 PM COMPARISON: May 29, 2018. CLINICAL INDICATIONS: constipation FINDINGS: Tubes: None. Redemonstrated patchy ill-defined densities in left lung base, essentially stable. No gross free air. There is a non obstructive bowel gas pattern. Redemonstrated nondistended air-filled loops of small bowel throughout the abdomen, suggesting mild ileus. No fecal overloading of colon. IVC filter remain in same position. Multiple small calcific densities at the level of left kidney, suggesting presence of nonobstructing renal stones. Right kidney is obscured due to overlying bowel. No organomegaly or mass effect. Multiple calcifications in the pelvis, most likely due to phleboliths.. Degenerative changes in spine. IMPRESSION: No definite fecal overloading of colon. Few nondistended air- filled loops of small bowel in abdomen, suggesting mild ileus. Small calcific densities at the level of left kidney, suggesting renal calculi. Stable patchy ill-defined density in left lung base. GRAM (CBC AND Collected: 05/30/2018 Status: F Source: [facility]) 1:30 AM [facility] REPOSITORY TYPE CODE TESTS RESULT OUT OF REFERENCE UNITS RANGE LAB WBC 4.23-9.07 K/uL WBC Count 5.46 LAB RBC 4.63-6.08 M/uL Low RBC Count 3.31 LAB HGB 13.7-17.5 g/dL Low Hemoglobin 9.9 LAB HCT 40.1-51.0 % Low Hematocrit 29.5 LAB MCV 79.0-92.2 fL Mean Cell Volume 89.1 LAB MCH 25.7-32.2 pg Mean Cell Hgb 29.9 LAB MCHC 32.3-36.5 g/dL Mean Cell Hgb Conc 33.6 LAB RDW 11.6-14.4 % RBC High Distribution 14.5 LAB PLT 163-337 K/uL Platelet Count 269 LAB MPV 9.4-12.4 fL Low Mean Platelet Volume 8.8 LAB NRBC 0.0-0.2 /100 WBC NUCLEATED RBC 0.0 Performed By: #### SANDRA HERMAN, MGO #### [facility] [id number] [place] [address] [address] CHEM 7 Collected: 05/30/2018 Status: F Source: [facility] 1:30 AM [facility] REPOSITORY TYPE CODE TESTS RESULT OUT OF REFERENCE UNITS RANGE LAB BUN 7-22 mg/dL BUN 7 LAB NA 133-143 mmol/L Sodium 140 LAB K 3.5-5.0 mmol/L Potassium 3.5 LAB CL 98-108 mmol/L Chloride 102 LAB CO2 22-30 mmol/L Carbon High Dioxide 33 LAB GLUC 70-99 mg/dL Glucose 85 LAB CREA 0.70-1.30 mg/dL Creatinine 0.76 LAB GAP 7-17 mmol/L Anion Gap 9 LAB BC BUN/CREA Ratio 9 LAB [facility] 278-305 mOsm/kg Osmolality 289 (Calc) LAB GFR >60 mL/min/1.73 sqM Est GFR,non >60 Mosotho LAB GFRA >60 mL/min/1.73 sqM Est GFR, >60 Performed By: #### SANDRA HERMAN, MGO #### [facility] [address] [place] [address] MAGNESIUM Collected: 05/30/2018 Status: F Source: [facility] 1:30 AM [facility] REPOSITORY TYPE CODE TESTS RESULT OUT OF REFERENCE UNITS RANGE LAB MG 1.6-2.6 mg/dL Magnesium 1.8 Performed By: #### HEMNILTON, AMPARO7, MGO #### [facility] [address] [place] [address] XR ABDOMEN 1 VIEW Observed: 05/29/2018 Status: F Source: [facility] 11:58 AM [facility] REPOSITORY EXAM: XR ABDOMEN 1 VIEW, 05/29/2018 10:48 AM COMPARISON: 05/19/2018. CLINICAL INDICATIONS: constipation FINDINGS: Tubes: None. There is patchy ill-defined density in left lung base suggesting mild infiltrates. Slightly elevated left diaphragm. No gross free air. There is a non obstructive bowel gas pattern. Scattered nondistended air-filled loops of small bowel in abdomen may suggest minimal early ileus. No definite fecal overloading of colon. IVC filter in place. No organomegaly or mass effect. No significant calcific densities or definite stones. Visualized osseous structures are unremarkable for the patient's age. IMPRESSION: No definite fecal overloading of colon. Few nondistended air- filled loops of small bowel in abdomen, otherwise Unremarkable abdominal radiograph. Patchy ill-defined densities in left lung base. GRAM (CBC AND Collected: 05/29/2018 Status: F Source: [facility]) 2:39 AM [facility] REPOSITORY TYPE CODE TESTS RESULT OUT OF REFERENCE UNITS RANGE LAB WBC 4.23-9.07 K/uL WBC Count 5.31 LAB RBC 4.63-6.08 M/uL Low RBC Count 3.40 LAB HGB 13.7-17.5 g/dL Low Hemoglobin 10.0 LAB HCT 40.1-51.0 % Low Hematocrit 30.6 LAB MCV 79.0-92.2 fL Mean Cell Volume 90.0 LAB MCH 25.7-32.2 pg Mean Cell Hgb 29.4 LAB MCHC 32.3-36.5 g/dL Mean Cell Hgb Conc 32.7 LAB RDW 11.6-14.4 % RBC High Distribution 14.6 LAB PLT 163-337 K/uL Platelet Count 301 LAB MPV 9.4-12.4 fL Low Mean Platelet Volume 8.6 LAB NRBC 0.0-0.2 /100 WBC NUCLEATED RBC 0.0 Performed By: #### HEMOGC, CHM7, MGO #### [facility] [address] [place] [address] [address] [place] [address] CHEM 7 Collected: 05/29/2018 Status: F Source: [facility] 2:39 AM [facility] REPOSITORY TYPE CODE TESTS RESULT OUT OF REFERENCE UNITS RANGE LAB BUN 7-22 mg/dL Low BUN 6 LAB NA 133-143 mmol/L Sodium 141 LAB K 3.5-5.0 mmol/L Potassium 3.5 LAB CL 98-108 mmol/L Chloride 103 LAB CO2 22-30 mmol/L Carbon High Dioxide 33 LAB GLUC 70-99 mg/dL Glucose 85 LAB CREA 0.70-1.30 mg/dL Creatinine 0.85 LAB GAP 7-17 mmol/L Anion Gap 9 LAB BC BUN/CREA Ratio 7 LAB [facility] 278-305 mOsm/kg Osmolality 290 (Calc) LAB GFR >60 mL/min/1.73 sqM Est GFR,non >60 [place] LAB GFRA >60 mL/min/1.73 sqM Est GFR, >60 Performed By: #### HEMOGC, CHM7, MGO #### [facility] [address] [place] [address] [address] [place] [address] MAGNESIUM Collected: 05/29/2018 Status: F Source: [facility] 2:39 AM [facility] REPOSITORY TYPE CODE TESTS RESULT OUT OF REFERENCE UNITS RANGE LAB MG 1.6-2.6 mg/dL Magnesium 2.0 Performed By: #### HEMOGC, CHM7, MGO #### [facility] [address] [address] HEMOGRAM (CBC AND Collected: 05/28/2018 Status: F Source: [facility]) 1:02 AM [facility] REPOSITORY TYPE CODE TESTS RESULT OUT OF REFERENCE UNITS RANGE LAB WBC 4.23-9.07 K/uL WBC Count 5.82 LAB RBC 4.63-6.08 M/uL Low RBC Count 3.36 LAB HGB 13.7-17.5 g/dL Low Hemoglobin 9.9 LAB HCT 40.1-51.0 % Low Hematocrit 30.0 LAB MCV 79.0-92.2 fL Mean Cell Volume 89.3 LAB MCH 25.7-32.2 pg Mean Cell Hgb 29.5 LAB MCHC 32.3-36.5 g/dL Mean Cell Hgb Conc 33.0 LAB RDW 11.6-14.4 % RBC Distribution 14.2 LAB PLT 163-337 K/uL Platelet Count 290 LAB MPV 9.4-12.4 fL Low Mean Platelet Volume 8.7 LAB NRBC 0.0-0.2 /100 WBC NUCLEATED RBC 0.0 Performed By: #### HEMSANDRA CALLAWAY, MGO #### [facility] [address] [place] [address] [place] [address] CHEM 7 Collected: 05/28/2018 Status: F Source: [facility] 1:02 AM [facility] REPOSITORY TYPE CODE TESTS RESULT OUT OF REFERENCE UNITS RANGE LAB BUN 7-22 mg/dL Low BUN 6 LAB NA 133-143 mmol/L Sodium 141 LAB K 3.5-5.0 mmol/L Low Potassium 3.3 LAB CL 98-108 mmol/L Chloride 102 LAB CO2 22-30 mmol/L Carbon High Dioxide 31 LAB GLUC 70-99 mg/dL Glucose 87 LAB CREA 0.70-1.30 mg/dL Creatinine 0.91 LAB GAP 7-17 mmol/L Anion Gap 11 LAB BC BUN/CREA Ratio 7 LAB [facility] 278-305 mOsm/kg Osmolality 290 (Calc) LAB GFR >60 mL/min/1.73 sqM Est GFR,non >60 [place] LAB GFRA >60 mL/min/1.73 sqM Est GFR, >60 Performed By: #### SANDRA HERMAN, MGO #### [facility] [address] [place] [address] [address] [place] [address] MAGNESIUM Collected: 05/28/2018 Status: F Source: [facility] 1:02 AM [facility] REPOSITORY TYPE CODE TESTS RESULT OUT OF REFERENCE UNITS RANGE LAB MG 1.6-2.6 mg/dL Magnesium 2.0 Performed By: #### HEMNILTON, AMPARO7, MGO #### [facility] [address] [place] [address] [address] [place] [address] VANCOMYCIN, TROUGH Collected: 05/27/2018 Status: F Source: [facility] 11:12 AM [facility] REPOSITORY TYPE CODE TESTS RESULT OUT OF REFERENCE UNITS RANGE LAB VANCTR 10.0-20.0 mcg/mL High 22.8 Vancomycin, Trough Performed By: #### VANCTR #### [facility] [address] [place] [id number] [place] [address] [place] [address] HGB & HCT Collected: 05/27/2018 Status: F Source: [facility] 5:23 AM [facility] REPOSITORY TYPE CODE TESTS RESULT OUT OF REFERENCE UNITS RANGE LAB HGB 13.7-17.5 g/dL Low Hemoglobin 11.2 LAB HCT 40.1-51.0 % Low Hematocrit 33.4 Performed By: #### HH #### [facility] [address] [place], [place] [id number] [place] [address] [address] [place] [address] HEMOGRAM (CBC AND Collected: 05/27/2018 Status: F Source: [facility]) 2:49 AM [facility] REPOSITORY TYPE CODE TESTS RESULT OUT OF REFERENCE UNITS RANGE LAB WBC 4.23-9.07 K/uL WBC Count 8.06 LAB RBC 4.63-6.08 M/uL Low RBC Count 3.91 LAB HGB 13.7-17.5 g/dL Low Hemoglobin 11.6 LAB HCT 40.1-51.0 % Low Hematocrit 34.8 LAB MCV 79.0-92.2 fL Mean Cell Volume 89.0 LAB MCH 25.7-32.2 pg Mean Cell Hgb 29.7 LAB MCHC 32.3-36.5 g/dL Mean Cell Hgb Conc 33.3 LAB RDW 11.6-14.4 % RBC Distribution 14.1 LAB PLT 163-337 K/uL Platelet Count 322 LAB MPV 9.4-12.4 fL Low Mean Platelet Volume 8.8 LAB NRBC 0.0-0.2 /100 WBC NUCLEATED RBC 0.0 Performed By: #### HEMOGC, CHM7, MGO #### [facility] [address] [place] [id number] [place] [address] [place] [address] CHEM 7 Collected: 05/27/2018 Status: F Source: [facility] 2:49 AM [facility] REPOSITORY TYPE CODE TESTS RESULT OUT OF REFERENCE UNITS RANGE LAB BUN 7-22 mg/dL BUN 7 LAB NA 133-143 mmol/L Sodium 137 LAB K 3.5-5.0 mmol/L Low Potassium 3.1 LAB CL 98-108 mmol/L Chloride 98 LAB CO2 22-30 mmol/L Carbon High Dioxide 32 LAB GLUC 70-99 mg/dL Glucose 98 LAB CREA 0.70-1.30 mg/dL Creatinine 1.25 LAB GAP 7-17 mmol/L Anion Gap 10 LAB BC BUN/CREA Ratio 6 LAB [facility] 278-305 mOsm/kg Osmolality 283 (Calc) LAB GFR >60 mL/min/1.73 Low sqM Est GFR,non 56 [place] LAB GFRA >60 mL/min/1.73 sqM Est GFR, >60 Performed By: #### HEMOGC, CHM7, MGO #### [facility] [address] [place] [address] [address] [place] [address] MAGNESIUM Collected: 05/27/2018 Status: F Source: [facility] 2:49 AM [facility] REPOSITORY TYPE CODE TESTS RESULT OUT OF REFERENCE UNITS RANGE LAB MG 1.6-2.6 mg/dL Magnesium 2.1 Performed By: #### HEMOGC, CHM7, MGO #### [facility] [address] [address] HEMOGRAM (CBC AND Collected: 05/26/2018 Status: F Source: [facility]) 3:43 AM [facility] REPOSITORY TYPE CODE TESTS RESULT OUT OF REFERENCE UNITS RANGE LAB WBC 4.23-9.07 K/uL WBC Count 5.16 LAB RBC 4.63-6.08 M/uL Low RBC Count 3.25 LAB HGB 13.7-17.5 g/dL Low Hemoglobin 9.5 LAB HCT 40.1-51.0 % Low Hematocrit 29.4 LAB MCV 79.0-92.2 fL Mean Cell Volume 90.5 LAB MCH 25.7-32.2 pg Mean Cell Hgb 29.2 LAB MCHC 32.3-36.5 g/dL Mean Cell Hgb Conc 32.3 LAB RDW 11.6-14.4 % RBC Distribution 14.0 LAB PLT 163-337 K/uL Platelet Count 270 LAB MPV 9.4-12.4 fL Low Mean Platelet Volume 8.4 LAB NRBC 0.0-0.2 /100 WBC NUCLEATED RBC 0.0 Performed By: #### HEMAMPARO CALLAWAY7, MGO #### [facility] [address] [place] [id number] [place] [address] [place] [id number] CHEM 7 Collected: 05/26/2018 Status: F Source: [facility] 3:43 AM [facility] REPOSITORY TYPE CODE TESTS RESULT OUT OF REFERENCE UNITS RANGE LAB BUN 7-22 mg/dL Low BUN 6 LAB NA 133-143 mmol/L Sodium 139 LAB K 3.5-5.0 mmol/L Low Potassium 3.0 LAB CL 98-108 mmol/L Chloride 102 LAB CO2 22-30 mmol/L Carbon Dioxide 26 LAB GLUC 70-99 mg/dL Glucose High 117 LAB CREA 0.70-1.30 mg/dL Low Creatinine 0.64 LAB GAP 7-17 mmol/L Anion Gap 14 LAB BC BUN/CREA Ratio 9 LAB [facility] 278-305 mOsm/kg Osmolality 288 (Calc) LAB GFR >60 mL/min/1.73 sqM Est GFR,non >60 [place] LAB GFRA >60 mL/min/1.73 sqM Est GFR, >60 Performed By: #### HEMNILTON, AMPARO7, MGO #### [facility] [address] [place] [address] [address] [place] [id number] MAGNESIUM Collected: 05/26/2018 Status: F Source: [facility] 3:43 AM [facility] REPOSITORY TYPE CODE TESTS RESULT OUT OF REFERENCE UNITS RANGE LAB MG 1.6-2.6 mg/dL Magnesium 1.8 Performed By: #### HEMNILTON, CECILLEM7, MGO #### [facility] [address] [place] [address] [address] [place] [id number] VANCOMYCIN, TROUGH Collected: 05/25/2018 Status: F Source: [facility] 9:39 PM [facility] REPOSITORY TYPE CODE TESTS RESULT OUT OF REFERENCE UNITS RANGE LAB VANCTR 10.0-20.0 mcg/mL 15.5 Vancomycin, Trough Performed By: #### VANCTR #### [facility] [address] [place] [id number] [facility] [address] [place] [id number] HEMOGRAM (CBC AND Collected: 05/25/2018 Status: F Source: [facility] PLATELET) 2:33 AM [facility] REPOSITORY TYPE CODE TESTS RESULT OUT OF REFERENCE UNITS RANGE LAB WBC 4.23-9.07 K/uL WBC Count 7.13 LAB RBC 4.63-6.08 M/uL Low RBC Count 3.80 LAB HGB 13.7-17.5 g/dL Low Hemoglobin 11.3 LAB HCT 40.1-51.0 % Low Hematocrit 33.8 LAB MCV 79.0-92.2 fL Mean Cell Volume 88.9 LAB MCH 25.7-32.2 pg Mean Cell Hgb 29.7 LAB MCHC 32.3-36.5 g/dL Mean Cell Hgb Conc 33.4 LAB RDW 11.6-14.4 % RBC Distribution 14.1 LAB PLT 163-337 K/uL Platelet Count High 338 LAB MPV 9.4-12.4 fL Low Mean Platelet Volume 8.7 LAB NRBC 0.0-0.2 /100 WBC NUCLEATED RBC 0.0 Performed By: #### HEMOGC, CHM7, MGO #### [facility] [address] [place] [address] [address] [place] [id number] CHEM 7 Collected: 05/25/2018 Status: F Source: [facility] 2:33 AM [facility] REPOSITORY TYPE CODE TESTS RESULT OUT OF REFERENCE UNITS RANGE LAB BUN 7-22 mg/dL Low BUN 6 LAB NA 133-143 mmol/L Sodium 139 LAB K 3.5-5.0 mmol/L Low Potassium 3.3 LAB CL 98-108 mmol/L Chloride 101 LAB CO2 22-30 mmol/L Carbon Dioxide 30 LAB GLUC 70-99 mg/dL Glucose 90 LAB CREA 0.70-1.30 mg/dL Creatinine 0.79 LAB GAP 7-17 mmol/L Anion Gap 11 LAB BC BUN/CREA Ratio 8 LAB [facility] 278-305 mOsm/kg Osmolality 287 (Calc) LAB GFR >60 mL/min/1.73 sqM Est GFR,non >60 [place] LAB GFRA >60 mL/min/1.73 sqM Est GFR, >60 Performed By: #### HEMOGC, CHM7, MGO #### [facility] [address] [place] [address] [facility] [address] [place], [place] [address] MAGNESIUM Collected: 05/25/2018 Status: F Source: [facility] 2:33 AM [facility] REPOSITORY TYPE CODE TESTS RESULT OUT OF REFERENCE UNITS RANGE LAB MG 1.6-2.6 mg/dL Magnesium 2.0 Performed By: #### HEMOGC, CHM7, MGO #### [facility] [address] [place] [address] [facility] [address] [place] [address] XR FLUORO MODIFIED Observed: 05/24/2018 Status: F Source: [facility] BARIUM SWALLOW WITH 12:42 PM [facility] REPOSITORY EXAM: XR FLUORO MODIFIED BARIUM SWALLOW WITH SPEECH, 05/24/2018 10:55 AM COMPARISON: No prior studies available for comparison. CLINICAL INDICATIONS: dysphagia new onset vocal hoarseness and new upper lung nodule TECHNIQUE: Multiple barium consistencies including thin, nectar thick, pudding, and cracker consistencies were administered to evaluate swallow. Lateral videofluoroscopy was performed in conjunction with Speech Pathology. Fluoroscopy Time: 1.8 min FINDINGS: Oral Phase: There was normal oral transit. Dental amalgam is noted. Patient is partially edentulous. Pharyngeal Phase: Aspiration with thin liquids. Penetration with nectar thick liquids. No aspiration or penetration noted with pudding and cracker consistencies. There is moderate residue noted within the vallecula after each swallow.. Cervical Phase: Functional. Mild cricopharyngeal hypertrophy that does not hinder the bolus. Degenerative changes are noted within the cervical spine. Cervical surgical hardware appears intact.. IMPRESSION: 1. Aspiration with thin liquids. Penetration with nectar thick liquids. No aspiration or penetration noted with pudding or cracker consistency. 2. Mild cricopharyngeal hypertrophy does not hinder bolus passage. Refer to the Speech and Language Pathologist's report for diet and therapy recommendations. I personally viewed and interpreted these images and I have reviewed and approved this report. GRAM (CBC AND Collected: 05/24/2018 Status: F Source: [facility] PLATELET) 2:36 AM [facility] REPOSITORY TYPE CODE TESTS RESULT OUT OF REFERENCE UNITS RANGE LAB WBC 4.23-9.07 K/uL WBC Count 6.60 LAB RBC 4.63-6.08 M/uL Low RBC Count 3.52 LAB HGB 13.7-17.5 g/dL Low Hemoglobin 10.6 LAB HCT 40.1-51.0 % Low Hematocrit 31.3 LAB MCV 79.0-92.2 fL Mean Cell Volume 88.9 LAB MCH 25.7-32.2 pg Mean Cell Hgb 30.1 LAB MCHC 32.3-36.5 g/dL Mean Cell Hgb Conc 33.9 LAB RDW 11.6-14.4 % RBC Distribution 14.2 LAB PLT 163-337 K/uL Platelet Count 303 LAB MPV 9.4-12.4 fL Low Mean Platelet Volume 8.6 LAB NRBC 0.0-0.2 /100 WBC NUCLEATED RBC 0.0 Performed By: #### HEMOGC, CHM7, MGO #### [facility] [place] [id number] CHEM 7 Collected: 05/24/2018 Status: F Source: [facility] 2:36 AM [facility] REPOSITORY TYPE CODE TESTS RESULT OUT OF REFERENCE UNITS RANGE LAB BUN 7-22 mg/dL BUN 8 LAB NA 133-143 mmol/L Sodium 135 LAB K 3.5-5.0 mmol/L Low Potassium 3.2 LAB CL 98-108 mmol/L Chloride 102 LAB CO2 22-30 mmol/L Carbon Dioxide 27 LAB GLUC 70-99 mg/dL Glucose High 105 LAB CREA 0.70-1.30 mg/dL Creatinine 0.75 LAB GAP 7-17 mmol/L Anion Gap 9 LAB BC BUN/CREA Ratio 11 LAB [facility] 278-305 mOsm/kg Osmolality 281 (Calc) LAB GFR >60 mL/min/1.73 sqM Est GFR,non >60 [place] LAB GFRA >60 mL/min/1.73 sqM Est GFR, >60 Performed By: #### HEMOGC, CHM7, MGO #### [facility] [address] [place] [address] [facility] [address] [place] [id number] MAGNESIUM Collected: 05/24/2018 Status: F Source: [facility] 2:36 AM [facility] REPOSITORY TYPE CODE TESTS RESULT OUT OF REFERENCE UNITS RANGE LAB MG 1.6-2.6 mg/dL Magnesium 1.9 Performed By: #### HEMOGC, CHM7, MGO #### [facility] [address] [place] [phone] [place] [address] [address] [place] [address] VANCOMYCIN, TROUGH Collected: 05/23/2018 Status: F Source: [facility] 9:19 PM [facility] REPOSITORY TYPE CODE TESTS RESULT OUT OF REFERENCE UNITS RANGE LAB VANCTR 10.0-20.0 mcg/mL Low 7.9 Vancomycin, Trough Performed By: #### VANCTR #### [facility] [address] [place] [address] [facility] [address] [place] [id number] HEMOGRAM (CBC AND Collected: 05/23/2018 Status: F Source: [facility]) 2:01 AM [facility] REPOSITORY TYPE CODE TESTS RESULT OUT OF REFERENCE UNITS RANGE LAB WBC 4.23-9.07 K/uL WBC Count 7.23 LAB RBC 4.63-6.08 M/uL Low RBC Count 3.58 LAB HGB 13.7-17.5 g/dL Low Hemoglobin 10.4 LAB HCT 40.1-51.0 % Low Hematocrit 31.5 LAB MCV 79.0-92.2 fL Mean Cell Volume 88.0 LAB MCH 25.7-32.2 pg Mean Cell Hgb 29.1 LAB MCHC 32.3-36.5 g/dL Mean Cell Hgb Conc 33.0 LAB RDW 11.6-14.4 % RBC Distribution 13.8 LAB PLT 163-337 K/uL Platelet Count 286 LAB MPV 9.4-12.4 fL Low Mean Platelet Volume 8.8 LAB NRBC 0.0-0.2 /100 WBC NUCLEATED RBC 0.0 Performed By: #### HEMOGC, PTPTT, CHM7, MGO #### [facility] [address] [place] [phone] [place] [address] [address] [place] [address] PT*PTT Collected: 05/23/2018 Status: F Source: [facility] 2:01 [facility] REPOSITORY TYPE CODE TESTS RESULT OUT OF RANGE REFERENCE UNITS LAB PT 11.9-14.2 sec High PT 15.4 LAB INR 0.9-1.1 High INR 1.2 LAB PTT 24.0-34.3 sec High PTT 36.9 Performed By: #### HEMOGC, JAYE, CHM7, MGO #### [facility] [address] [place] [id number] [place] [address] [address] [place] [address] CHEM 7 Collected: 05/23/2018 Status: F Source: [facility] 2:01 [facility] REPOSITORY TYPE CODE TESTS RESULT OUT OF REFERENCE UNITS RANGE LAB BUN 7-22 mg/dL BUN 11 LAB NA 133-143 mmol/L Sodium 136 LAB K 3.5-5.0 mmol/L Low Potassium 3.0 LAB CL 98-108 mmol/L Chloride 103 LAB CO2 22-30 mmol/L Carbon Dioxide 25 LAB GLUC 70-99 mg/dL Glucose High 103 LAB CREA 0.70-1.30 mg/dL Creatinine 0.73 LAB GAP 7-17 mmol/L Anion Gap 11 LAB BC BUN/CREA Ratio 15 LAB [facility] 278-305 mOsm/kg Osmolality 283 (Calc) LAB GFR >60 mL/min/1.73 sqM Est GFR,non >60 [place] LAB GFRA >60 mL/min/1.73 sqM Est GFR, >60 Performed By: #### HEMOGC, PTPTT, CHM7, MGO #### [facility] [address] [place] [phone] [place] [address] [address] [place] [address] MAGNESIUM Collected: 05/23/2018 Status: F Source: [facility] 2:01 [facility] REPOSITORY TYPE CODE TESTS RESULT OUT OF REFERENCE UNITS RANGE LAB MG 1.6-2.6 mg/dL Magnesium 1.9 Performed By: #### HEMOGC, PTPTT, CHM7, MGO #### [facility] [address] [place] [address] [facility] [address] [place] [address] STREP PNEUMONIAE Collected: 05/22/2018 Status: F Source: [facility] ANTIGEN,URINE 7:34 AM [facility] REPOSITORY TYPE CODE TESTS RESULT OUT OF REFERENCE UNITS RANGE LAB PNEUMO Negative Strep Pneumoniae Negative Antigen,urine Performed By: #### PNEUMO #### [facility] [address] [place] [address] [facility] [address] [place] [address] LEGIONELLA URINARY Collected: 05/22/2018 Status: F Source: [facility] ANTIGEN 7:34 AM [facility] REPOSITORY TYPE CODE TESTS RESULT OUT OF REFERENCE UNITS RANGE LAB LEGION Negative Legionella Negative Urinary Antigen Performed By: #### LEGION #### [facility] [address] [place] [phone] [place] [address] [address] [place] [id number] HEMOGRAM (CBC AND Collected: 05/22/2018 Status: F Source: [facility]) 2:30 AM [facility] REPOSITORY TYPE CODE TESTS RESULT OUT OF REFERENCE UNITS RANGE LAB WBC 4.23-9.07 K/uL WBC Count High 11.98 LAB RBC 4.63-6.08 M/uL Low RBC Count 3.58 LAB HGB 13.7-17.5 g/dL Low Hemoglobin 10.6 LAB HCT 40.1-51.0 % Low Hematocrit 31.6 LAB MCV 79.0-92.2 fL Mean Cell Volume 88.3 LAB MCH 25.7-32.2 pg Mean Cell Hgb 29.6 LAB MCHC 32.3-36.5 g/dL Mean Cell Hgb Conc 33.5 LAB RDW 11.6-14.4 % RBC Distribution 13.7 LAB PLT 163-337 K/uL Platelet Count 292 LAB MPV 9.4-12.4 fL Low Mean Platelet Volume 9.0 LAB NRBC 0.0-0.2 /100 WBC NUCLEATED RBC 0.0 Performed By: #### HEMOGC, CHM7, IPB, MGO #### [facility] [address] [place] [phone] [place] [address] [address] [place] [id number] CHEM 7 Collected: 05/22/2018 Status: F Source: [facility] 2:30 AM [facility] REPOSITORY TYPE CODE TESTS RESULT OUT OF REFERENCE UNITS RANGE LAB BUN 7-22 mg/dL BUN 13 LAB NA 133-143 mmol/L Low Sodium 132 LAB K 3.5-5.0 mmol/L Potassium 3.7 LAB CL 98-108 mmol/L Chloride 98 LAB CO2 22-30 mmol/L Carbon Dioxide 26 LAB GLUC 70-99 mg/dL Glucose High 101 LAB CREA 0.70-1.30 mg/dL Creatinine 0.70 LAB GAP 7-17 mmol/L Anion Gap 12 LAB BC BUN/CREA Ratio 19 LAB [facility] 278-305 mOsm/kg Low Osmolality 277 (Calc) LAB GFR >60 mL/min/1.73 sqM Est GFR,non >60 [place] LAB GFRA >60 mL/min/1.73 sqM Est GFR, >60 Performed By: #### HEMOGC, CHM7, IPB, MGO #### [facility] [address] [place] [address] [address] [place] [address] INORGANIC PHOSPHATE Collected: 05/22/2018 Status: F Source: [facility] 2:30 AM [facility] REPOSITORY TYPE CODE TESTS RESULT OUT OF REFERENCE UNITS RANGE LAB IP 2.2-4.6 mg/dL Inorg Phosphate 2.2 Performed By: #### HEMOGC, CHM7, IPB, MGO #### [facility] [address] [place] [address] [address] [place] [address] MAGNESIUM Collected: 05/22/2018 Status: F Source: [facility] 2:30 AM [facility] REPOSITORY TYPE CODE TESTS RESULT OUT OF REFERENCE UNITS RANGE LAB MG 1.6-2.6 mg/dL Magnesium 1.6 Performed By: #### HEMOGC, CHM7, IPB, MGO #### [facility] [address] [place] [address] [facility] [address] [place], [place] [address] CT CHEST WITH Observed: 05/21/2018 Status: F Source: [facility] 1:16 PM [facility] REPOSITORY EXAM: CT CHEST WITH CONTRAST, 05/21/2018 12:40 PM COMPARISON: No Available Comparisons. CLINICAL INDICATIONS: Sepsis; RELEVANT CLINICAL HISTORY: TECHNIQUE: Following the administration of intravenous contrast, axial CT images were reconstructed from the volumetric data set, from the thoracic inlet through the adrenal glands. Coronal MIP images were also reconstructed. CONTRAST: iohexol (OMNIPAQUE) 350 MG/ML injection 1-171 mL; Route of Administration: Intravenous; Dose: 90 mL. iohexol (OMNIPAQUE) 300 MG/ML vial 50 mL; Route of Administration: Oral; Dose: 50 mL. This patient underwent a CT examination using radiation exposure as low as reasonably achievable. CTDIvol and DLP radiation exposure values for each series were: Exposure: 1; Series: 4; Anatomy: Chest/Abdomen/Pelvis; Phantom: 32 cm; CTDIvol: 7; DLP: 229 Exposure: 2; Series: 5; Anatomy: Chest/Abdomen/Pelvis; Phantom: 32 cm; CTDIvol: 15; DLP: 836 The following accession numbers are related to this dose report {[id number]}: [id number] The dose indicators for CT are the volume Computed Tomography (CT) Dose Index (CTDIvol) and the Dose Length Product (DLP), and are measured in units of mGy and mGy-cm, respectively. These indicators are not patient dose, but values generated from the CT scanner acquisition factors and may substantially underestimate or overestimate the absorbed dose based on patient size and other factors. FINDINGS: Lungs and Pleura: Heterogeneous mass like consolidation in the left lower lobe measuring 8.9 x 6.1 cm. There is surrounding groundglass opacity about this lesion. There are additional scattered poorly circumscribed nodular opacities throughout the bilateral lungs. Some of the discrete nodules include the 10 x 7 mm in nodule in the right upper lobe (series 4, image 24), and the 7 x 7 mm in nodule in the right upper lobe (series 4, image 27). There are small bilateral pleural effusions. There is no pneumothorax. Tracheobronchial tree: The central tracheobronchial tree is patent. Mediastinum/Layla: There are no enlarged mediastinal or hilar lymph nodes. The visualized inferior aspect of the thyroid gland is unremarkable. Patulous distal esophagus. Axilla and Supraclavicular Region: No axillary or supraclavicular adenopathy. Cardiovascular: The heart and cardiac chambers are normal in size. There is no pericardial effusion. There are multivessel coronary artery calcifications. There are mild atherosclerotic changes of the thoracic aorta and great vessels. The visualized central pulmonary arteries are unremarkable. Upper Abdomen: Please refer to the report for the dedicated CT examination of the abdomen performed on the same day. Bones and Soft Tissue: There is diffuse osteopenia, which limits the evaluation of osteolytic lesions. There are mild degenerative changes of the thoracic spine. The visualized subcutaneous tissues of the chest wall appear unremarkable. IMPRESSION: 1. Mass like consolidation in the left lower lobe, representing pneumonia. 2. Nodular opacities in the bilateral lungs, favored to relate to an infectious/inflammatory process. An initial short-term follow- up CT examination is recommended, in approximately 3 months. 3. Small bilateral pleural effusions, likely parapneumonic effusions. 4. Multivessel coronary artery disease. ABDOMEN/PELVIS WITH Observed: 05/21/2018 Status: F Source: [facility] 1:11 PM [facility] REPOSITORY EXAM: CT ABDOMEN/PELVIS WITH CONTRAST, 05/21/2018 12:40 PM COMPARISON: No prior studies available for comparison. CLINICAL INDICATIONS: Sepsis; TECHNIQUE: Helical axial images of the abdomen and pelvis were performed from the lung bases through the ischial tuberosities following the administration of oral and intravenous contrast. Coronal 2 mm reconstructions were also made. CONTRAST: iohexol (OMNIPAQUE) 350 MG/ML injection 1-171 mL; Route of Administration: Intravenous; Dose: 90 mL. iohexol (OMNIPAQUE) 300 MG/ML vial 50 mL; Route of Administration: Oral; Dose: 50 mL. This patient underwent a CT examination using radiation exposure as low as reasonably achievable. CTDIvol and DLP radiation exposure values for each series were: Exposure: 1; Series: 4; Anatomy: Chest/Abdomen/Pelvis; Phantom: 32 cm; CTDIvol: 7; DLP: 229 Exposure: 2; Series: 5; Anatomy: Chest/Abdomen/Pelvis; Phantom: 32 cm; CTDIvol: 15; DLP: 836 The following accession numbers are related to this dose report {[id number]}: [id number] The dose indicators for CT are the volume Computed Tomography (CT) Dose Index (CTDIvol) and the Dose Length Product (DLP), and are measured in units of mGy and mGy-cm, respectively. These indicators are not patient dose, but values generated from the CT scanner acquisition factors and may substantially underestimate or overestimate the absorbed dose based on patient size and other factors. FINDINGS: Lung Bases: Please see dedicated chest CT scan of the same date for full description of the intra-thoracic contents. ABDOMEN Liver: Liver is normal in size and CT density. Low-attenuation lesion in the left hepatic lobe is too small to characterize, but likely representing a small hepatic cyst.. Biliary/Gallbladder: Cholelithiasis. The biliary tree is nondilated. Spleen: Spleen is normal in size and CT density. Pancreas: Pancreas is normal. There is no evidence of pancreatic mass or peripancreatic fluid. Kidneys: Kidneys are normal in size. There are no stones or hydronephrosis. Adrenals: Adrenal glands are unremarkable. Retroperitoneal/Vasculature: No retroperitoneal adenopathy is identified. Atherosclerotic disease of the abdominal aorta and its branches. Infrarenal IVC filter. 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 Gastrointestinal/Mesentery: Small hiatal hernia. Short segment wall thickening with surrounding inflammatory changes in the rectum suggestive of proctitis. No bowel obstruction. Trace right lower quadrant free fluid. No discrete intra-abdominal collection. PELVIS Bladder: A Holloway catheter partially decompresses the bladder which demonstrates circumferential bladder wall thickening with 2 bladder diverticula containing layering high density foci suggestive of calculi. Genital: Prostate is enlarged. Other: Right lower quadrant stimulator generator with catheter extending into the thoracic spine. Bony Structures: The bones are demineralized. Multilevel degenerative changes of the spine. IMPRESSION: 1. Mild short segment wall thickening of the rectum with surrounding inflammatory changes suggestive of proctitis. No bowel obstruction or discrete intra-abdominal collection. 2. Cholelithiasis. No gallbladder wall thickening or pericholecystic free fluid. 3. Enlarged prostate with circumferential bladder wall thickening and bilateral bladder diverticula containing bladder calculi consistent with chronic bladder outlet obstruction. 4. 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 PROT & GLUC Collected: 05/21/2018 Status: F Source: [facility] 9:21 AM [facility] REPOSITORY TYPE CODE TESTS RESULT OUT OF REFERENCE UNITS RANGE LAB CFG 40-70 mg/dL CSF Glucose 66 LAB CFP 15-45 mg/dL CSF Protein 35 Performed By: #### CFPG, CSFLDB #### [facility] [address] [address] CSF FLUID BATTERY Collected: 05/21/2018 Status: F Source: [facility] 9:21 AM [facility] REPOSITORY TYPE CODE TESTS RESULT OUT OF REFERENCE UNITS RANGE LAB CSTUBE TUBE(S) CSF No TUBE NUMBER Tube Number Indicated LAB SGROS Gross Appearance Colorless (CSF) Result Comment: Clear LAB SSUPN Supernatant (CSF) Not indicated LAB SFWBC <6 /uL WBC (CSF) 3 LAB SFRBC <3 /uL RBC (CSF) <3 LAB SNOCC Cells Counted 78 (CSF) LAB SFSEG 0-6 % Neutrophils (CSF) 0 LAB SFLYM 40-80 % Lymphocytes (CSF) 50 LAB SFMOMA 15-45 % 50 High Monocytes/Macrophag es, CSF LAB SEOSN % Eosinophils (CSF) 0 LAB SFBAS % Basophils (CSF) [address] Marie Kaufman MD, Reviewed by PhD LAB SFCOM Comment (CSF) There is no evidence of an inflammatory response. LAB SFPLAS % Plasma Cells, CSF 0 Performed By: #### CFPG, CSFLDB #### [facility] [address] [address] Observed: 05/21/2018 Status: F Source: [facility] BODY FLUID CULTURE 9:21 AM [facility] REPOSITORY SOURCE: CEREBRAL SPINAL FLUID: BLACK TOP TUBE COMMENT: Cloudy 10MLS MICROSCOPIC: Cytocentrifuge preparation Neutrophils, None NO ORGANISMS SEEN RESULT: NO GROWTH DAY 2 REPORT STATUS: 05/23/2018 FINAL Performed By: #### BFLD #### [address] [address] Blood Cultures processed at: [facility] Observed: Status: F Source: [facility] MENINGITIS/ENCEPHALITIS 05/21/2018 9:21 AM [facility] REPOSITORY NOT DETECTED NOT DETECTED NOT DETECTED NOT DETECTED NOT DETECTED NOT DETECTED NOT DETECTED NOT DETECTED NOT DETECTED NOT DETECTED NOT DETECTED NOT DETECTED NOT DETECTED NOT DETECTED A negative result does not exclude the possibility of PROPERTY CLAIMS AD[employer]ER infection and should not be used as the sole basis for diagnosis, treatment, or other management decisions. Negative results may occur when the concentration of organism(s), virus(es), or yeast in the specimen is below the limit of detection. The ME panel does not distinguish between latent and active herpesvirus infections(CMV, HHV-6). This test was performed using a film array methof for the detection of: Escherichia coli K1, Haemophilus influenza, LIsteria monocytogenes, Neisseria meningitidis, Streptococcus agalactiae, Strepto coccus pneumoniae, Cytomegalovirus, Enterovirus, Herpes Simplex virus 1 and 2, Human Herpesvirus 6, Human parechovirus, Varicella zoster virus, and Cryptococcus neoformans/kell. Performed By: #### CSFMEP #### [address] [address] Observed: 05/21/2018 Status: F Source: [facility] CULTURE -E 9:21 AM [facility] REPOSITORY SOURCE: CEREBRAL SPINAL FLUID: BLACK TOP TUBE COMMENT: Cultures held 28 days. CLDY 10MLS RESULT: NO GROWTH TO DATE REPORT STATUS: 06/18/2018 FINAL Performed By: #### FUN #### [facility] [address] [place] [address] Blood Cultures processed at: [facility] HEMOGRAM (CBC AND Collected: 05/21/2018 Status: F Source: [facility]) 1:18 AM [facility] REPOSITORY TYPE CODE TESTS RESULT OUT OF REFERENCE UNITS RANGE LAB WBC 4.23-9.07 K/uL WBC Count High 15.89 LAB RBC 4.63-6.08 M/uL Low RBC Count 4.01 LAB HGB 13.7-17.5 g/dL Low Hemoglobin 11.8 LAB HCT 40.1-51.0 % Low Hematocrit 35.7 LAB MCV 79.0-92.2 fL Mean Cell Volume 89.0 LAB MCH 25.7-32.2 pg Mean Cell Hgb 29.4 LAB MCHC 32.3-36.5 g/dL Mean Cell Hgb Conc 33.1 LAB RDW 11.6-14.4 % RBC Distribution 13.6 LAB PLT 163-337 K/uL Platelet Count 272 LAB MPV 9.4-12.4 fL Low Mean Platelet Volume 8.6 LAB NRBC 0.0-0.2 /100 WBC NUCLEATED RBC 0.0 Performed By: #### HEMOGC, [facility] #### [facility] [address] [place] [address] [facility] [address] [place] [id number] CHEM 7 Collected: 05/21/2018 Status: F Source: [facility] 1:18 AM [facility] REPOSITORY TYPE CODE TESTS RESULT OUT OF REFERENCE UNITS RANGE LAB BUN 7-22 mg/dL BUN 13 LAB NA 133-143 mmol/L Sodium 134 LAB K 3.5-5.0 mmol/L Low Potassium 3.4 LAB CL 98-108 mmol/L Chloride 101 LAB CO2 22-30 mmol/L Carbon Dioxide 25 LAB GLUC 70-99 mg/dL Glucose High 114 LAB CREA 0.70-1.30 mg/dL Creatinine 0.80 LAB GAP 7-17 mmol/L Anion Gap 11 LAB BC BUN/CREA Ratio 16 LAB [facility] 278-305 mOsm/kg Osmolality 281 (Calc) LAB GFR >60 mL/min/1.73 sqM Est GFR,non >60 [place] LAB GFRA >60 mL/min/1.73 sqM Est GFR, >60 Performed By: #### HEMOGC, M7 #### [facility] [address] [place] [id number] [place] [address] [address] [place] [id number] HEMOGRAM (CBC AND Collected: 05/20/2018 Status: F Source: [facility]) 1:42 AM [facility] REPOSITORY TYPE CODE TESTS RESULT OUT OF REFERENCE UNITS RANGE LAB WBC 4.23-9.07 K/uL WBC Count High 15.31 LAB RBC 4.63-6.08 M/uL Low RBC Count 3.59 LAB HGB 13.7-17.5 g/dL Low Hemoglobin 10.7 LAB HCT 40.1-51.0 % Low Hematocrit 32.1 LAB MCV 79.0-92.2 fL Mean Cell Volume 89.4 LAB MCH 25.7-32.2 pg Mean Cell Hgb 29.8 LAB MCHC 32.3-36.5 g/dL Mean Cell Hgb Conc 33.3 LAB RDW 11.6-14.4 % RBC Distribution 13.8 LAB PLT 163-337 K/uL Platelet Count 242 LAB MPV 9.4-12.4 fL Mean Platelet Volume 9.8 LAB NRBC 0.0-0.2 /100 WBC NUCLEATED RBC 0.0 Performed By: #### HEMOGC, M7 #### [facility] [address] [place] [id number] [place] [address] [address] [place] [id number] CHEM 7 Collected: 05/20/2018 Status: F Source: [facility] 1:42 AM [facility] REPOSITORY TYPE CODE TESTS RESULT OUT OF REFERENCE UNITS RANGE LAB BUN 7-22 mg/dL BUN 14 LAB NA 133-143 mmol/L Sodium 134 LAB K 3.5-5.0 mmol/L Potassium 3.9 LAB CL 98-108 mmol/L Chloride 101 LAB CO2 22-30 mmol/L Carbon Dioxide 25 LAB GLUC 70-99 mg/dL Glucose 93 LAB CREA 0.70-1.30 mg/dL Creatinine 0.79 LAB GAP 7-17 mmol/L Anion Gap 12 LAB BC BUN/CREA Ratio 18 LAB [facility] 278-305 mOsm/kg Osmolality 281 (Calc) LAB GFR >60 mL/min/1.73 sqM Est GFR,non >60 [place] LAB GFRA >60 mL/min/1.73 sqM Est GFR, >60 Performed By: #### HEMOGC, CHM7 #### [facility] [address] [place] [address] [facility] [address] [place], [place] [address] XR ABDOMEN 1 VIEW Observed: 05/19/2018 Status: F Source: [facility] PORTABLE 6:14 PM [facility] REPOSITORY EXAM: XR ABDOMEN 1 VIEW PORTABLE, 05/19/2018 15:32 PM COMPARISON: No prior abdominal radiographs available for comparison. CLINICAL INDICATIONS: Persistent watery diarrhea with leukocytosis, rule out ischemic changes FINDINGS: Tubes: Catheter projecting over the spine, presumably spinal stimulator. No gross free air. There is a non obstructive bowel gas pattern. IVC filter. Visualized osseous structures are unremarkable for the patient's age. IMPRESSION: No evidence of acute small bowel obstruction. 7 Collected: 05/19/2018 Status: F Source: [facility] 12:37 PM [facility] REPOSITORY TYPE CODE TESTS RESULT OUT OF REFERENCE UNITS RANGE LAB BUN 7-22 mg/dL BUN 17 LAB NA 133-143 mmol/L Sodium 134 LAB K 3.5-5.0 mmol/L Low Potassium 3.2 LAB CL 98-108 mmol/L Low Chloride 97 LAB CO2 22-30 mmol/L Carbon Dioxide 28 LAB GLUC 70-99 mg/dL Glucose High 140 LAB CREA 0.70-1.30 mg/dL Creatinine 0.83 LAB GAP 7-17 mmol/L Anion Gap 12 LAB BC BUN/CREA Ratio 20 LAB [facility] 278-305 mOsm/kg Osmolality 284 (Calc) LAB GFR >60 mL/min/1.73 sqM Est GFR,non >60 [place] LAB GFRA >60 mL/min/1.73 sqM Est GFR, >60 Performed By: #### CHM7, CRP, HFP, TROP #### [facility] [address] [place] [address] [facility] [address] [place], [place] [address] C REACTIVE PROTEIN Collected: 05/19/2018 Status: F Source: [facility] 12:37 PM [facility] REPOSITORY TYPE CODE TESTS RESULT OUT OF REFERENCE UNITS RANGE LAB CRP <10.00 mg/L C High Reactive 234.50 Protein Performed By: #### CHM7, CRP, HFP, TROP #### [facility] [address] [place] [id number] [place] [address] [place] [address] HEPATIC FUNCTION Collected: 05/19/2018 Status: F Source: [facility] 12:37 PM [facility] REPOSITORY TYPE CODE TESTS RESULT OUT OF REFERENCE UNITS RANGE LAB ALB 3.5-5.0 g/dL Low Albumin 2.9 LAB BILD <0.3 mg/dL Bilirubin High Direct 0.3 LAB BILT <1.5 mg/dL Bilirubin Total 1.1 LAB ALP 32-126 U/L Alkaline High Phosphatase 145 LAB ALT 10-52 U/L ALT 20 LAB AST 14-40 U/L AST 20 LAB TP 6.4-8.3 g/dL Low Total Protein 6.2 Performed By: #### CHM7, CRP, HFP, TROP #### [facility] [address] [place] [address] [address] [place] [address] TROPONIN I Collected: 05/19/2018 Status: F Source: [facility] 12:37 PM [facility] REPOSITORY TYPE CODE TESTS RESULT OUT OF REFERENCE UNITS RANGE LAB TROP <0.11 ng/mL Troponin I 0.05 Performed By: #### CHM7, CRP, HFP, TROP #### [facility] [address] [place] [address] [address] [place] [address] LACTATE, BLOOD Collected: 05/19/2018 Status: F Source: [facility] 12:12 PM [facility] REPOSITORY TYPE CODE TESTS RESULT OUT OF RANGE REFERENCE UNITS LAB LACT 0.5-1.6 mmol/L Lactate, 1.1 Blood Performed By: #### LACT #### [facility] [address] [place] [address] [address] [place] [address] HEMOGRAM (CBC AND Collected: 05/19/2018 Status: F Source: [facility] PLATELET) 2:12 AM [facility] REPOSITORY TYPE CODE TESTS RESULT OUT OF REFERENCE UNITS RANGE LAB WBC 4.23-9.07 K/uL WBC Count High 19.24 LAB RBC 4.63-6.08 M/uL Low RBC Count 3.80 LAB HGB 13.7-17.5 g/dL Low Hemoglobin 11.3 LAB HCT 40.1-51.0 % Low Hematocrit 33.7 LAB MCV 79.0-92.2 fL Mean Cell Volume 88.7 LAB MCH 25.7-32.2 pg Mean Cell Hgb 29.7 LAB MCHC 32.3-36.5 g/dL Mean Cell Hgb Conc 33.5 LAB RDW 11.6-14.4 % RBC Distribution 13.5 LAB PLT 163-337 K/uL Platelet Count 197 LAB MPV 9.4-12.4 fL Mean Platelet Volume 9.5 LAB NRBC 0.0-0.2 /100 WBC NUCLEATED RBC 0.0 Performed By: #### HEMAMPARO CALLAWAY7 #### [place] [address] [place] [address] CHEM 7 Collected: 05/19/2018 Status: F Source: [facility] 2:12 AM [facility] REPOSITORY TYPE CODE TESTS RESULT OUT OF REFERENCE UNITS RANGE LAB BUN 7-22 mg/dL BUN 20 LAB NA 133-143 mmol/L Low Sodium 132 LAB K 3.5-5.0 mmol/L Low Potassium 3.2 LAB CL 98-108 mmol/L Low Chloride 96 LAB CO2 22-30 mmol/L Carbon Dioxide 27 LAB GLUC 70-99 mg/dL Glucose High 112 LAB CREA 0.70-1.30 mg/dL Creatinine 0.84 LAB GAP 7-17 mmol/L Anion Gap 12 LAB BC BUN/CREA Ratio 24 LAB [facility] 278-305 mOsm/kg Osmolality 280 (Calc) LAB GFR >60 mL/min/1.73 sqM Est GFR,non >60 [place] LAB GFRA >60 mL/min/1.73 sqM Est GFR, >60 Performed By: #### HEMOGNay, CHM7 #### [facility] [address] [place] [address] [facility] [address] [place], [place] [address] C Observed: 05/18/2018 Status: F Source: [facility] DIFFICILE BY PCR -E 3:04 PM [facility] REPOSITORY FECES: Watery Negative This assay detects Toxigenic C. difficile (Toxin B DNA) by PCR. Results should be interpreted in conjunction with clinical findings. Performed By: #### WILFRED, STLB #### [address] [address] MOLECULAR ENTERIC Collected: 05/18/2018 Status: F Source: [facility] PANEL, STOOL - E 3:04 PM [facility] REPOSITORY TYPE CODE TESTS RESULT OUT OF REFERENCE UNITS RANGE LAB SHDNA Negative Shigella Negative spp./Enteroinvasiv e E LAB STXDNA Negative Shiga Toxin by Negative PCR LAB CAMDNA Negative Campylobacter Negative spp by PCR LAB SALDNA Negative Salmonella spp Negative by PCR LAB STLCOM Enteric Stool This Comment test was performed using a real time PCR assay. Results should be interpreted in conjunction with clinical findings. A positive result does not necessarily indicate the presence of viable organisms. Positive results do not rule out co-infection with other organisms that are not detected by this assay. Result Comment: For Shiga toxin, this assay detects Shiga toxin 1 / Shiga toxin 2 genes (found in Shiga toxin-producing E. coli as well as Shigella dysenteriae). This test should not be used as a test of cure. Performed By: #### WILFRED, STHoracioB #### [address] [address] Observed: 05/18/2018 Status: F Source: [facility] URINE CULTURE -E 1:57 PM [facility] REPOSITORY SOURCE: URINE-UPPER TRACT: Straight cath RESULT: NO SIGNIFICANT GROWTH. Routine cultures are evaluated for significant uropathogens >1,000 CFU/mL. REPORT STATUS: 05/19/2018 FINAL Performed By: #### UR #### [address] [address] Blood Cultures processed at: [facility] Observed: 05/18/2018 Status: F Source: [facility] BLOOD:ROUTINE II 4:17 AM [facility] REPOSITORY SOURCE: BLOOD, PERIPHERAL: Left Forearm RESULT: NO GROWTH DAY 5 OF 5 REPORT STATUS: 05/23/2018 FINAL Performed By: #### FAST2 #### [address] [address] Blood Cultures processed at: [facility] Observed: 05/18/2018 Status: F Source: [facility] BLOOD:ROUTINE I 4:15 AM [facility] REPOSITORY SOURCE: BLOOD, PERIPHERAL: Right Hand RESULT: NO GROWTH DAY 5 OF 5 REPORT STATUS: 05/23/2018 FINAL Performed By: #### FAST #### [place] [address] Blood Cultures processed at: [facility] HEMOGRAM (CBC AND Collected: 05/18/2018 Status: F Source: [facility] PLATELET) 2:02 AM [facility] REPOSITORY TYPE CODE TESTS RESULT OUT OF REFERENCE UNITS RANGE LAB WBC 4.23-9.07 K/uL WBC Count High 19.38 LAB RBC 4.63-6.08 M/uL Low RBC Count 3.66 LAB HGB 13.7-17.5 g/dL Low Hemoglobin 11.1 LAB HCT 40.1-51.0 % Low Hematocrit 32.5 LAB MCV 79.0-92.2 fL Mean Cell Volume 88.8 LAB MCH 25.7-32.2 pg Mean Cell Hgb 30.3 LAB MCHC 32.3-36.5 g/dL Mean Cell Hgb Conc 34.2 LAB RDW 11.6-14.4 % RBC Distribution 13.7 LAB PLT 163-337 K/uL Platelet Count 198 LAB MPV 9.4-12.4 fL Low Mean Platelet Volume 9.1 LAB NRBC 0.0-0.2 /100 WBC NUCLEATED RBC 0.0 Performed By: #### HEMOGC, CHM7, CKB, IPB, PROCAL #### [facility] [address] [place] [id number] [place] [address] [address] [place] [address] CHEM 7 Collected: 05/18/2018 Status: F Source: [facility] 2:02 AM [facility] REPOSITORY TYPE CODE TESTS RESULT OUT OF REFERENCE UNITS RANGE LAB BUN 7-22 mg/dL BUN 16 LAB NA 133-143 mmol/L Sodium 136 LAB K 3.5-5.0 mmol/L Low Potassium 3.4 LAB CL 98-108 mmol/L Chloride 98 LAB CO2 22-30 mmol/L Carbon Dioxide 25 LAB GLUC 70-99 mg/dL Glucose High 120 LAB CREA 0.70-1.30 mg/dL Creatinine 0.94 LAB GAP 7-17 mmol/L Anion Gap 16 LAB BC BUN/CREA Ratio 17 LAB [facility] 278-305 mOsm/kg Osmolality 287 (Calc) LAB GFR >60 mL/min/1.73 sqM Est GFR,non >60 [place] LAB GFRA >60 mL/min/1.73 sqM Est GFR, >60 Performed By: #### HEMCHICOC, CHM7, CKB, IPB, PROCAL #### [facility] [address] [place] [address] [address] [place] [address] CK Collected: 05/18/2018 Status: F Source: [facility] 2:02 AM [facility] REPOSITORY TYPE CODE TESTS RESULT OUT OF REFERENCE UNITS RANGE LAB CK 30-220 U/L Creatine 33 Kinase Performed By: #### HEMOGC, CHM7, CKB, IPB, PROCAL #### [facility] [address] [place] [address] [facility] [address] [place] [address] INORGANIC PHOSPHATE Collected: 05/18/2018 Status: F Source: [facility] 2:02 AM [facility] REPOSITORY TYPE CODE TESTS RESULT OUT OF REFERENCE UNITS RANGE LAB IP 2.2-4.6 mg/dL Low Inorg Phosphate 2.0 Performed By: #### HEMOGC, CHM7, CKB, IPB, PROCAL #### [facility] [address] [place] [address] [facility] [address] [place], [place] [address] PROCALCITONIN Collected: 05/18/2018 Status: F Source: [facility] 2:02 AM [facility] REPOSITORY TYPE CODE TESTS RESULT OUT OF REFERENCE UNITS RANGE LAB PROCAL 0.00-0.50 ng/mL PROCALCITONIN 0.37 Result Comment: In adult, critically ill ICU patients, studies have demonstrated that values <0.5 ng/mL represent a low risk of severe systemic infection/sepsis. In adult, critically ill ICU patients, studies have demonstrated that values >2.0 ng/mL represent a high risk of severe systemic infection/sepsis. Results <0.5 ng/mL do not exclude infection, as localized infections (without systemic signs) and early systemic infections (<6 hours) can be associated with such low levels. Several non-infecti ous clinical conditions such as powres, trauma, surgery and cardiogenic shock have been associated with elevated procalcitonin levels. All procalcitonin results should be interpreted in association with the patient's clinical condition and all laboratory findings. The cut off levels noted above for this assay should not be applied to , emergency department or immunocompromised patients. Performed By: #### HEMOGC, CHM7, CKB, IPB, PROCAL #### [facility] [address] [place] [address] [facility] [address] [place] [address] XR CHEST PA AND Observed: 05/17/2018 Status: F Source: [facility] LATERAL 10:43 AM [facility] REPOSITORY EXAM: XR CHEST PA AND LATERAL, 05/17/2018 09:55 AM COMPARISON: Chest CT 04/04/2014. CLINICAL INDICATIONS: elevated WBC RELEVANT CLINICAL HISTORY: FINDINGS: (Adequate technique) Implanted Devices: None Chest Wall: Degenerative changes of the thoracic spine and shoulders. Mild dextrocurvature of the thoracic spine. Partially visualized anterior cervical discectomy and fusion hardware in the lower cervical spine. Layla: Normal Mediastinum: Normal Pleural Spaces: No pleural effusion. No pneumothorax. Lungs: Subsegmental opacity in the posterior left lower lobe. Cardiac Silhouette: Normal, without overall or specific chamber enlargement, or abnormal calcification Thoracic Aorta: Atherosclerotic changes. Pulmonary Vessels: Normal, without PVH IMPRESSION: Subsegmental opacity in the posterior left lower lobe. This likely in part represents fibrosis and bronchiectasis seen on the comparison chest CT, there could be superimposed airspace disease including pneumonia. - CHRI Collected: 05/17/2018 Status: F Source: [facility] 12:04 AM [facility] REPOSITORY TYPE CODE TESTS RESULT OUT OF REFERENCE UNITS RANGE LAB CK 30-220 U/L Creatine [address] HEAD WITHOUT Observed: 05/16/2018 Status: F Source: [facility] CONTRAST 5:38 PM [facility] REPOSITORY EXAM: CT HEAD WITHOUT CONTRAST, 05/16/2018 5:28 PM COMPARISON: MRI brain noncontrast 02/23/2014. CLINICAL INDICATIONS: 77 years Male headache; RELEVANT CLINICAL HISTORY: TECHNIQUE: A series of transaxial computerized tomographic images are obtained from base of skull to vertex without intravenous contrast. Axial whole-head and thin section posterior fossa slices are provided. Reformats: Sagittal and coronal. FINDINGS: No acute intracranial hemorrhage, focal infarct, edema, significant white matter disease, or other abnormal increased or decreased cerebral attenuation is identified. There is no mass affect or midline shift. There is no extracerebral collection. Ventricles are normal in overall size, however temporal horns are disproportionately enlarged, suggestive of bilateral medial temporal lobe volume loss, including potentially hippocampal volume loss. There is also some disproportionate enlargement of sulci in the parietal regions bilaterally, suggestive of some disproportionate parietal lobe volume loss.. Posterior fossa is within normal limits for age. Calvarium and skull base appear intact. Visualized sinuses show no air fluid levels. Visualized orbits are unremarkable. IMPRESSION: 1. No evidence of intracranial hemorrhage, mass lesion, or other acute intracranial abnormality. 2. Findings suggestive of bilateral medial temporal lobe and parietal lobe volume loss, noted. E W/ MICROSCOPIC-CHRI Collected: 05/16/2018 Status: F Source: [facility] 4:22 PM [facility] REPOSITORY TYPE CODE TESTS RESULT OUT OF RANGE REFERENCE UNITS LAB RUG SHAMPOOER Clear Appearance Urine Clear LAB SPGR 1.001-1.035 Specific [place] urine <=1.005 LAB UPH 5.0-7.0 pH Urine 6.0 LAB UGL Negative mg/dL Glucose Urine Negative LAB UKET Negative Ketones Urine Negative LAB UPR Negative mg/dL Protein Abnormal Urine 30 LAB UURO <2.0 EU/dL Urobilinogen 1.0 urine LAB UNTR Negative Nitrites Urine Negative LAB ULEU Negative Leukocyte Esterase Negative LAB UBLD Negative Blood Urine Negative LAB COLR Yellow Color Yellow LAB UWBC 0-5 /HPF WBC Urine Abnormal 6-9 LAB URBC 0-2 /HPF RBC Urine 0-2 LAB BACT Absent Bacteria Abnormal Present LAB UCOM COMMENT URINE None LAB EPIS /HPF Squamous Epithelial 1+ Performed By: #### URNJ #### [facility] [address] [place] [address] [place] [address] CBC WITH DIFF LORA Collected: 05/16/2018 Status: F Source: [facility] 4:01 PM [facility] REPOSITORY TYPE CODE TESTS RESULT OUT OF REFERENCE UNITS RANGE LAB WBC 4.23-9.07 K/uL WBC Count 18.82 High LAB RBC 4.63-6.08 M/uL RBC Count 4.19 Low LAB HGB 13.7-17.5 g/dL Hemoglobin 12.6 Low LAB HCT 40.1-51.0 % Hematocrit 37.4 Low LAB MCV 79.0-92.2 fL Mean Cell 89.3 Volume LAB MCH 25.7-32.2 pg Mean Cell 30.1 Hgb LAB MCHC 32.3-36.5 g/dL Mean Cell 33.7 Hgb Conc LAB RDW 11.6-14.4 % RBC 13.5 Distribution LAB PLT 163-337 K/uL Platelet 217 Count LAB MPV 9.4-12.4 fL Mean 9.2 Low Platelet Volume LAB NRBC 0.0-0.2 /100 WBC NUCLEATED 0.0 RBC LAB DTYPE Electronic DIFFERENTIAL TYPE Differential LAB IGRE % IMMATURE 1.1 GRANS % LAB SEGS % NEUTROPHIL 83.4 SEGMENTED LAB LYM % LYMPHOCYTE 6.2 % LAB MON % MONOCYTE % 9.2 LAB EOS % EOSINOPHIL 0.0 % LAB BASO % BASOPHIL % 0.1 LAB IGABS <0.04 K/uL IMMATURE 0.20 High GRANS ABSOLUTE LAB SBANS 1.78-5.38 K/uL SEGS + 15.71 High Bands,Absolute LAB ALYM 1.32-3.57 K/uL Abs Lymph 1.16 Low LAB AMONO 0.30-0.82 K/uL Abs Wayne 1.73 High LAB AEOS <0.55 K/uL Abs Eos <0.04 LAB ABASO <0.09 K/uL Abs Baso <0.04 Performed By: #### ENRIQUETA #### [facility] [address] [place] [address] CALCIUM - CHRI Collected: 05/16/2018 Status: F Source: [facility] 4:01 [facility] REPOSITORY TYPE CODE TESTS RESULT OUT OF REFERENCE UNITS RANGE LAB CA 8.6-10.5 mg/dL Calcium 9.3 Performed By: #### ENRIQUETA #### [facility] [address] [place] [address] CHEM 7 - CHRI Collected: 05/16/2018 Status: F Source: [facility] 4:01 [facility] REPOSITORY TYPE CODE TESTS RESULT OUT OF REFERENCE UNITS RANGE LAB BUN 7-22 mg/dL BUN 16 LAB CREA 0.70-1.30 mg/dL Creatinine 1.25 LAB NA 133-143 mmol/L Sodium 133 LAB K 3.5-5.0 mmol/L Potassium 3.8 LAB CL 98-108 mmol/L Low Chloride 94 LAB CO2 22-30 mmol/L Carbon High Dioxide 31 LAB GLUC 70-99 mg/dL Glucose High 188 LAB GFR >60 mL/min/1.73 Low sqM Est GFR,non 56 [place] LAB GFRA >60 mL/min/1.73 sqM Est GFR, >60 LAB GAP 7-17 mmol/L Anion Gap 12 LAB BC BUN/CREA Ratio 13 LAB [facility] 278-305 mOsm/kg Osmolality 286 (Calc) Performed By: #### RINKUDFJ #### [facility] [address] [place], [place] [address] INORG PHOSPHATE - CHRI Collected: 05/16/2018 Status: F Source: [facility] 4:01 PM [facility] REPOSITORY TYPE CODE TESTS RESULT OUT OF REFERENCE UNITS RANGE LAB IP 2.2-4.6 mg/dL Low Inorg Phosphate 1.5 Performed By: #### CBCDFJ #### [facility] [address] [place], [place] [address] MAGNESIUM - CHRI Collected: 05/16/2018 Status: F Source: [facility] 4:01 PM [facility] REPOSITORY TYPE CODE TESTS RESULT OUT OF REFERENCE UNITS RANGE LAB MG 1.6-2.6 mg/dL Magnesium 2.0 Performed By: #### RINKUDFJ #### [facility], [facility] [address] [place], [place] [address] TROPONIN - CHRI Collected: 05/16/2018 Status: F Source: [facility] 4:01 PM [facility] REPOSITORY TYPE CODE TESTS RESULT OUT OF REFERENCE UNITS RANGE LAB TROP <0.11 ng/mL Troponin I 0.04 Performed By: #### RINKUDFJ #### [facility] [address] [place], [place] [address] UA COMPLETE Collected: 12/20/2017 Status: F Source: [facility] 11:41 PM [facility] REPOSITORY TYPE CODE TESTS RESULT OUT OF REFERENCE UNITS RANGE LAB 76654145(L Yellow OINC) UA Color Normal Yellow LAB 56371887(L Clear OINC) UA Clarity Normal Clear LAB 61023601(L Negative OINC) UA Glucose Normal Negative LAB 66774245(L Negative OINC) UA Bili Normal Negative LAB 08340049(L Negative OINC) UA Ketones Normal Negative LAB [id number](L 1.003-1.030 OINC) UA Spec Normal Grav 1.011 LAB 07698570(L 4.6-8.0 OINC) UA pH Normal 6.0 LAB 14732266(L Negative OINC) UA Protein Normal Negative LAB 28043101(L mg/dL OINC) UA Normal Urobilinogen Negative LAB 35831667(L Negative OINC) UA Nitrite Normal Negative LAB 17373633(L Negative OINC) UA Blood Normal Negative LAB 13820891(L Negative OINC) UA Leuk Est Normal Negative LAB 48974229(L 0-3 /HPF OINC) UA RBC Normal 0-3 LAB 24185465(L 0-5 /HPF OINC) UA WBC Normal 0-5 LAB CD:2634407 <=19 mg/dL 971(LOINC) UA Ascorbic High Acid 40 Performed By: #### [id number] #### TY Urinalysis Automated Subsection [facility] [place] [address] CT ABDOMEN/PELVIS W/O Observed: 12/20/2017 Status: F Source: [facility] CONTRAST 10:13 PM [facility] REPOSITORY Exam Date/Time: 12/20/2017 22:22 EST Reason for Exam: Pain Report CT OF ABDOMEN AND PELVIS WITHOUT CONTRAST CLINICAL HISTORY: Abdominal pain. COMPARISON: No relevant prior study available at time of interpretation. TECHNIQUE: Axial CT images of the abdomen and pelvis were obtained without intravenous contrast. Multiplanar 2-D reconstructed images were obtained and reviewed. Dose reduction techniques were achieved by using: automated exposure control and/or adjustment of mA and /or kV according to patient size and/or use of iterative reconstruction technique. FINDINGS: Please note that the sensitivity for detection of focal lesions or vascular disease is markedly reduced without intravenous contrast. Imaged lung bases: 1 cm right lower lobe nodule is visualized on image 13 series 2. Area of fibrosis with adjoining atelectasis and consolidation noted in the left lower lobe. Normal heart size. Coronary artery calcifications noted. Liver/Gallbladder: 1 cm left hepatic lobe lesion is visualized on image 25 series 2. No abnormal intrahepatic ductal dilation is seen. Cholelithiasis noted without CT evidence for acute cholecystitis. Spleen: Normal-sized. Stomach: Hiatal hernia noted. Pancreas: No abnormal/focal ductal dilation. Adrenal glands: Unremarkable bilaterally. Kidneys/ureters: No hydronephrosis, hydroureter, or ureteral calculus. Urinary bladder: Urinary bladder diverticulum is noted. Distended. Probable trabeculation of the urinary bladder. Reproductive organs: Prostatomegaly. The prostate measures up to 6.3 cm in the transverse dimension and impresses upon the floor of the urinary bladder. Bowel/appendix: The rectal wall is thickened. The rectum is also distended. The sigmoid colon is also mildly thickened with pericolonic stranding present. Redundant colon is visualized. Scattered colonic diverticuli are also present. The decompressed portions of the large bowel loops are suboptimally evaluated on this exam. No bowel obstruction noted. No CT evidence of acute appendicitis. Peritoneum: No abscess or free air. Vasculature: Atherosclerosis of the visualized aorta noted. 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 Atherosclerotic changes of the major aortic branches also noted. IVC filter noted. Soft tissue: Electronic device noted within the right lower quadrant abdominal Exam Date/Time: 12/20/2017 22:22 EST Report soft tissue. The spine stimulator is partially imaged seen within the left lateral aspect and at the anterior aspect of the spinal canal. Lymph nodes: No pathologically enlarged lymph nodes per CT size criteria. Bone: Multilevel degenerative changes of the visualized spine noted. IMPRESSION: Proctitis and sigmoid colitis are visualized. Recommend follow- up after resolution of acute symptoms to exclude underlying mass. Findings of probable constipation also noted without CT evidence for high-grade small bowel obstruction. Ileus versus developing partial obstruction is best excluded clinically. The visualized spinal stimulators are located at the left lateral aspect and at the anterior aspect of the spinal canal. Recommend comparison with prior imaging and further evaluation with clinical exam to exclude malpositioning. 1 cm right lower lobe pulmonary nodule is visualized. Probable findings of acute on chronic aspiration into the left lower lobe are also visualized. Recommend further evaluation with chest CT. Superimposed infection is best excluded clinically. Cholelithiasis without CT evidence for acute cholecystitis. Indeterminate 1 cm left hepatic lobe lesion can be further evaluated with outpatient MRI of abdomen with and without contrast. Massive prostatomegaly with findings of urinary bladder outlet obstruction. Recommend correlation with PSA. Superimposed infection is best excluded with urinalysis. Nodular thickening of the urinary bladder is likely due to trabeculation from urinary bladder outlet obstruction. If there is concern for underlying mass, recommend direct visualization for further evaluation. FINAL REPORT Dictated: 12/21/2017 0:51 am Tawanda Ortega MD Signed (Electronic Signature): 12/21/2017 0:51 am Signed by: Tawanda Ortega MD Technologist: LONNIE XR ABDOMEN 1 VIEW Observed: 12/20/2017 Status: F Source: [facility] 8:40 PM [facility] REPOSITORY Exam Date/Time: 12/20/2017 20:46 EST Reason for Exam: Constipation Report KUB COMPARISON: None. REASON FOR STUDY: Constipation. Abdominal pain. REPORT: IVC filter is noted in place. Stomach bubble is not overly dilated. There is mild gaseous distention of large and small bowel loops in the upper limits of normal. There is no excessive stool noted throughout the colon. Calcified phleboliths are noted in the pelvis. No obvious ureteral stone is noted. Incidental note is made of a needle type artifact in the mid aspect of the abdomen measuring roughly 2.2 cm. It is in the midline overlying the level of roughly L3-L4. This could be a foreign body or could be an object lying behind or in front of the body. IMPRESSION: 1. Mild gaseous distention of large and small bowels loops but on the upper limits of normal. 2. No excessive amount of stool noted throughout the colon. 3. Needle type artifact is noted at the midline at the level of L3-L4. This could represent a foreign body, please correlate. FINAL REPORT Dictated: 12/20/2017 9:43 pm Barron Ramirez DO Signed (Electronic Signature): 12/20/2017 9:43 pm Signed by: Barron Ramirez DO Technologist: NATHAN BMP Collected: 12/20/2017 Status: F Source: YAZIDISM 8:15 PM [facility] REPOSITORY TYPE CODE TESTS RESULT OUT OF RANGE REFERENCE UNITS LAB [id number](L 70-99 mg/dL OINC) High Glucose Lvl 129 LAB 05100122(L 7-18 mg/dL OINC) BUN Normal 14 LAB 3188093(LO 0.6-1.3 mg/dL INC) Normal Creatinine 1.1 LAB 76526101(L 5.4-30.0 ratio OINC) Normal BUN/Creat Ratio 12.7 LAB 99197943(L 8.4-10.2 mg/dL OINC) Calcium Normal Lvl 9.2 LAB 70941544(L 136-145 mEq/L OINC) Sodium Normal Lvl 137 LAB 80457893(L 3.5-5.1 mEq/L OINC) Normal Potassium Lvl 3.9 LAB 68439134(L 98-107 mEq/L OINC) Chloride Normal 99 LAB 84491716(L 24.0-30.0 mEq/L OINC) High CO2 32.2 Performed By: #### [id number] #### [facility]Y [facility] [address] [place] [address] EGFR Collected: 12/20/2017 Status: F Source: YAZIDISM 8:15 PM [facility] REPOSITORY Order Comment: Order added by Discern Expert. TYPE CODE TESTS RESULT OUT OF RANGE REFERENCE UNITS LAB 46077268(LO mL/min/1.73 INC) m2 Normal eGFR >60 LAB 32933613(LO mL/min/1.73 INC) m2 Normal eGFR AA >60 Performed By: #### [id number] #### [facility] [address] [place] [address] HEP FUNC PANEL Collected: 12/20/2017 Status: F Source: YAZIDISM 8:15 PM [facility] REPOSITORY TYPE CODE TESTS RESULT OUT OF RANGE REFERENCE UNITS LAB [id number](L 10-40 Int._Unit/L OINC) Normal ALT 36 LAB 08494138(L 10-42 Int._Unit/L OINC) Normal AST 36 LAB 95496336(L 3.2-5.0 G/DL OINC) Normal Albumin Lvl 3.7 LAB 89318201(L 2.0-4.0 G/DL OINC) Normal Globulin 3.0 LAB 86288208(L 1.1-1.9 ratio OINC) Normal A/G Ratio 1.2 LAB 39423230(L 42-121 Int._Unit/L OINC) Normal Alk Phos 84 LAB 06305531(L .00-.20 mg/dL OINC) Normal Bili Direct .14 LAB 96756142(L OINC) Normal Bili Indirect 0.9 Result Comment: No established ranges available for the Indirect Biliruben. LAB 80972358(LOINC) 0.2-1.0 mg/dL Normal Bili Total 1.0 LAB 37771301(LOINC) 6.4-8.3 G/DL Normal Total Protein 6.7 Performed By: #### [id number] #### [facility] [address] [place] [address] LIPASE LEVEL Collected: 12/20/2017 Status: F Source: YAZIDISM 8:15 PM [facility] REPOSITORY TYPE CODE TESTS RESULT OUT OF RANGE REFERENCE UNITS LAB 44356086(LO 8-57 U/L INC) Normal Lipase Lvl 27 Performed By: #### 4743224 #### [facility] [address] [place] 0535305 CBC W/ AUTO DIFF Collected: 12/20/2017 Status: F Source: YAZIDISM 8:15 PM [facility] REPOSITORY TYPE CODE TESTS RESULT OUT OF RANGE REFERENCE UNITS LAB 56476945(L 3.6-11.0 E3/mcL OINC) Normal WBC 5.2 LAB 46600856(L 3.90-6.10 E6/mcL OINC) Normal RBC 4.38 LAB 80917087(L 13.5-18.0 G/DL OINC) Low Hgb 13.0 LAB 11119146(L 42.0-52.0 % OINC) Low Hct 38.6 LAB 07251571(L 11.5-14.5 % OINC) Normal RDW 13.6 LAB 53060198(L 27.0-31.0 pg OINC) Normal MCH 29.8 LAB 37338093(L 33.0-37.0 G/DL OINC) Normal MCHC 33.8 LAB 26638890(L 78.0-100.0 fL OINC) Normal MCV 88.1 LAB 71216975(L 7.4-11.0 fL OINC) Normal MPV 8.4 LAB 46876124(L 130-400 E3/mcL OINC) Normal Platelet 188 Performed By: #### 2952791 #### TY BarbosaHemanna [address] [place] [address] AUTO DIFF Collected: 12/20/2017 Status: F Source: YAZIDISM 8:15 PM [facility] REPOSITORY Order Comment: Order Added by Discern Expert. TYPE CODE TESTS RESULT OUT OF RANGE REFERENCE UNITS LAB 77782510(L 37.0-75.0 % OINC) Normal Neutro Auto 55.9 LAB 40836353(L 20.0-55.0 % OINC) Normal Lymph Auto 31.3 LAB 13648526(L 0.0-10.0 % OINC) High Wayne Auto 10.2 LAB 25420297(L 0.0-11.0 % OINC) Normal Eos Auto 1.9 LAB 93789804(L 0.0-2.0 % OINC) Normal Basophil Auto 0.7 LAB 91947851(L 1.4-6.5 E3/mcL OINC) Normal Neutro 2.9 Absolute LAB 77072333(L 1.2-3.4 E3/mcL OINC) Normal Lymph Absolute 1.6 LAB 65325055(L 0.0-0.7 E3/mcL OINC) Normal Wayne Absolute 0.5 LAB 50932555(L 0.0-0.7 E3/mcL OINC) Normal Eos Absolute 0.1 LAB 03024314(L 0.0-0.2 E3/mcL OINC) Normal Basophil 0.0 Absolute Performed By: #### 6734229 #### TY [facility] [address] [place] [address] ALLERGIES ALLERGIES DATE TYPE / NAME / CODE REACTION SEVERITY SOURCE CODE Drug/41365 cephalexin Rash Mandaeism 1003([facility]) System Repository Drug/52315 sulfamethoxazole Rash Mandaeism 1003([facility]) System Repository ENCOUNTERS ENCOUNTERS ADMIT/DISCHARGE ACCOUNT NUMBER ADMITTING ENCOUNTER LOCATION SOURCE CLASS 10/09/2018 [id number] Ambulatory Building:[facility] Repository 10/02/2018 [id number] Ambulatory [facility] ding:LABSPEC Repository 09/14/[id number] Ambulatory [facility] Repository 09/12/2018 [id number] [facility] ing:Tamela person 09/06/2018/09/11/20 [id number] [facility] [place] [address] Abigail Jawiadago Encounter [facility] ding:[facility] SRoom: Repository 0316Bed: 09/06/2018 [id number] Ambulatory [address] [place] [address] Repository 08/29/2018 [id number] Ambulatory [facility] ing:Tamela nd 08/29/2018/08/29/20 [id number] Amb[facility] [address] [facility] ing:Tamela ndRoom: Procedure 08/15/2018/08/15/20 [id number] Amb[facility] [address] [facility] ing:Tamela ndRoom: CD:[id number] 08/08/2018 [id number] Ambulatory Building:[facility] Repository 07/24/2018 [id number] Ambulatory Building:KRP [facility] Repository 07/24/2018 [id number] Ambulatory Building:KRI [facility] Repository 07/13/2018/07/13/20 [id number] Rica, Emergency [facility]aeism [facility] ding[facility] System EDRoom: Repository 07/13/2018 [id number] Ambulatory [address] [place] [address] Repository 07/05/2018 [id number] Ambulatory Building:UGF [facility] Repository 07/04/2018/07/04/20 [id number] [place], Ambulatory Mandaeism Mandaeism 18 [facility] Regional ding:[facility] Repository 07/04/2018 [id number] Ambulatory [address] [place] [address] Repository 06/22/2018/06/22/20 [id number] [place], Ambulatory [facility] Repository 06/22/2018 [id number] Ambulatory [address] [place] [address] Repository 06/21/2018/06/21/20 [id number] [place], Ambulatory Mandaeism Mandaeism 18 [facility] Regional ding:[facility] Repository 06/21/2018 [id number] Ambulatory [address] [place] [address] Repository 06/15/2018/06/15/20 [id number] [place], Ambulatory Mandaeism [facility]ism 18 [facility] ding[facility] Repository 06/15/2018 [id number] Ambulatory [address] [place] [address] Repository 06/12/2018 [id number] Ambulatory Building:SANDY [facility] Repository 06/12/2018/06/12/20 [id number] [place], Ambulatory Mandaeism [facility]ism [facility] Regional ding[facility] Repository 06/12/2018 [id number] Ambulatory 9509 [facility] Repository 06/01/2018/06/01/20 [id number] Tavmimiaee, Ambulatory Mandaeism Mandaeism 18 [facility] Regional ding:[facility] Repository 06/01/2018 [id number] Ambulatory 9509 [facility] Repository 05/16/2018/05/30/20 [id number] PETULLO, Inpatient Building:R11 [facility] 18 OBED Encounter ERoom: [place] 1101Bed: A [facility] Repository 05/07/2018/05/07/20 [id number] Hernández, Ambulatory [facility] Mandaeism 18 Thierry g:[facility] Repository 05/02/2018 [id number] Ambulatory Building:[facility] Repository 04/17/2018/04/17/20 [id number] Nicolette, Ambulatory [facility] Mandaeism 18 Harvinder Barajas g:QCareRoom: [facility] Repository 02/20/2018 [id number] Ambulatory Building:[facility] Repository 01/02/2018 [id number] Ambulatory Building:[facility] Repository 12/27/2017/12/27/19 [id number] Isreal Quintero Ambulatory Isreal Thomae, Mandaeism 18 R DOBuilding:[facility] Room 2 Repository 12/20/2017/12/21/19 [id number] Tonny, Emergency Mandaeism Mandaeism 18 [facility] Regional ding:[facility] System EDRoom: Repository PAYERS PAYERS ENCOUNTER GUARANTOR PAYER SUBSCRIBER SOURCE 10/09/2018 TA Leonard Primary TA Leonard [facility] HARDINDOB: Insurance:MEDICARE HARDINDOB: [place] [id number] [facility] [id number] [facility] PARTRID Number: 5 [place] [id number] [place] Repository [address]Dhc: (315) Date:3569-91-59Dqdd 547[address]Omk: () Name:CARE [phone] () 10/02/2018 TA Primary TA Hobbs [id number] Insurance:AETNA MCR HARDINDOB: Community PARTRIDGE [facility] Number: [id number] [id number] Repository [address]Xjx: (405) Date:6429-45-67KJ [phone] () 468909CCSANKET [facility] [address]FU: 10/02/2018 Secondary NOT GIVENUNK [place] Insurance:SELF PAY [facility] Number: Effective Repository Date:2018-10-02 09/14/2018 Primary NOT [id number] [facility] Insurance:CorporatePo [facility] Number: [facility] [id number] [address]Hof: Repository Date:Plan Name:[place] [phone] () [place], [place] [address]AX: 09/12/2018 TA Leonard Primary TA Vasquez HARDINDOB: Insurance:AETNAPolicy HARDINDOB: [facility] Number: Effective [id number] System PARTRIDGE Date:2018-09-12 PARTRIDGE Repository [place], [place] 5601-72-79Pthu[address] [place], [place] [address]Tel: Name:CD:[id number]4458Tel: [id number] [facility] () [phone]: [phone]) () [phone] () 09/06/2018 TA Leonard Primary TA Vasquez HARDINDOB: Insurance:AETNAPolicy HARDINDOB: [facility] Number: Effective [id number] System PARTRIDGE Date:2018-09-06 PARTRIDGE Repository [place], [place] 6286-29-63Uzak [place] [address]Tel: Name:CD:[id number] [address] [address]Hto: [address] [place] [address] (HP) [phone]: [phone]) (HP) [phone] (WP) 09/06/2018 Count includes the [facility] HARDINDOB: Insurance:AetnaPolicy HARDINDOB: [facility] Number: [id number] Repository PARTRID [id number] 5 [place] Date:Plan Name:[place], [place] [id number]: [id number]: (HP) (HP) 08/29/2018 [facility] HARDINDOB: Insurance:1500 HARDINDOB: [facility] AETNAPoly Number: [id number] System PARTRIDGE Effective PARTRID[place], [place] Date:2018-08-29 - [place] [address]Tel: 0570-04-88Pgtp [phone]: Name:CD:[id number] O (HP) [address] [place] [address] (HP)Tel: 000) [phone]: (WP) [phone] 08/29/2018 [facility] HARDINDOB: Insurance:1500 HARDINDOB: [facility] AETNAPolicy Number: [id number] System PARTRIDGE Effective 5 PARTRIDGE Repository [place], [place] Date:2018-08-15 - [place] [address]Dyw: 7634-37-48Dxoz [address]Unf: Name:CD:[id number] O (HP) [address] [place] [address] (HP)Tel: 000) [phone]: (WP) [phone] 08/15/2018 TA Vasquez HARDINDOB: Insurance:1500 HARDINDOB: [facility] Number: [id number] System PARTRIDGE Effective [place]TR[place], [place] Date:2018-08-15 - [place] [address]Gzx: [id number] [address]Wgd: Name:CD:[id number] O () [address]FPITTS, [place] ()Tel: [phone]) [phone]: () [phone] 08/08/2018 TA Leonard [facility] HARDINDOB: Insurance:MEDICARE HARDINDOB: [place] [facility] [id number] [facility] PARTRIDGE Number: [address] [place], [place] [address]D2QJo[place], [place] Repository [address]Xtu: (316) Date:1723-19-45Nrdt 61038Rbe: () Name:[facility] [phone] () 07/24/2018 TA Leonard [facility] HARDINDOB: Insurance:MEDICARE HARDINDOB: [place] [facility] [id number] [facility] PARTRIDGE Number: [address] [place], [place] [address]D2QFEffeSyrac[place], [place] Repository [address]Zkl: (889) Date:9190-97-06Oxmb 01223Qwq: () Name:CARE [id number] () 07/24/2018 TA Leonard [facility] HARDINDOB: Insurance:MEDICARE HARDINDOB: [place] [facility] [id number] [facility] PARTRIDGE Number: [address] [place], [place] [address]D2QJoice, [place] Repository [address]Ttx: (017) Date:7640-29-96Jsve 57[address]Myi: () Name:CARE [phone] () 07/13/2018 TA Vasquez HARDINDOB: Insurance:AETNAPolicy HARDINDOB: [facility] Number: Effective [id number] System PARTRIDGE Date:2018-07-13 PARTRIDGE Repository [place], [place] 7637-88-31VrwaCo[place], [place] [address]Ecp: Name:CD:[id number] [address]u: [id number] PASOSANKET () [id number]: [phone]) () [phone] () 07/13/2018 Count includes the [facility] HARDINDOB: Insurance:AetnaPolicy HARDINDOB: [facility] Number: [id number] Repository PARTRIDGE [id number] [address] [place] [address] Date:Plan Name:[place], [place] [id number]: [id number]: () () 07/05/2018 TA Leonard [facility] TA [facility] HARDINDOB: Insurance:MEDICARE HARDINDOB: [place] [facility] [id number] [facility] PARTRIDGE Number: 5 [address] [place], [place] [id number] [place], [place] Repository [address]Nud: 567) Date:5161-55-53Ywdi 514[address]Bbh: () Name:CARE [phone] () 07/04/2018 TA Leonard [facility] HARDINDOB: Insurance:AETNAPolicy HARDINDOB: [facility] Number: Effective [id number] System PARTRIDGE Date:2018-07-04 PARTRIDGE Repository [place] 0665-14-64XucjCooper, [place] [id number]: Name:CD:[id number] [facility] [id number]: [id number], [place] (HP) [phone]: [phone]) (HP) [phone] (WP) 07/04/2018 Count includes the [facility] HARDINDOB: Insurance:AetnaPolicy HARDINDOB: Hospitals Number: [id number] Repository PARTPARK[facility] [id number] [address] [place] [address] Date:Plan Name:[place], [place] [id number]: [id number]: (HP) (HP) 06/22/2018 TA Leonard [facility] HARDINDOB: Insurance:AETNAPolicy HARDINDOB: [facility] Number: Effective [id number] System PARTRID Date:2018-06-22 [facility] SERVICESRIDMad[place] 9969-40-48LfwqCooper, [place] [address]Alo: Name:CD:[id number] [facility] [id number]: [id number] [place] [address] (HP) [phone]: ([phone]) (HP) [phone] (WP) 06/22/2018 Count includes the [facility] HARDINDOB: Insurance:AetnaPolicy HARDINDOB: Hospitals Number: [id number] Repository [facility]IDWALTHALL [facility] HOSPITALRVHUX8LWXcyshjrta[address] Date:Plan Name:[place], [place] [id number]: [id number]: (HP) (HP) 06/21/2018 TA [facility] HARDINDOB: Insurance:AETNAPolicy HARDINDOB: [facility] Number: Effective [id number] System PARTRIDGE Date:2018-06-21 [place] 4507-85-69Cuus [place], [place] [address]Oor: Name:CD:[id number] [address]Obo: [id number] [place] [address] (HP) [phone]: (800) (HP) [phone] (WP) 06/21/2018 Count includes the [facility] HARDINDOB: Insurance:AetnaPolicy HARDINDOB: [facility] Number: [id number] Repository PARTRIDGE [id number] 5 [place], [place] Date:Plan Name:[place], [place] [id number]: [id number]: (HP) (HP) 06/15/2018 [facility] HARDINDOB: Insurance:AETNAPolicy HARDINDOB: [facility] Number: Effective [id number] System PARTRIDGE Date:2018-06-15 [place] 4441-91-26Lwhl [place], [place] [address]Mov: Name:CD:[id number] [facility] [id number]: [address] [place] [address] (HP) [phone]: (800) (HP) [phone] (WP) 06/15/2018 Count includes the [facility] HARDINDOB: Insurance:AetnaPolicy HARDINDOB: [facility] Number: [id number] Repository PARTRIDGE [id number] [place], [place] Date:Plan Name:[place], [place] [id number]: [id number]: () () 06/12/2018 TA Leonard [facility] HARDINDOB: Insurance:MEDICARE HARDINDOB: University AETNA PPOPolicy [id number] [facility] PARTRIDGE Number: 5 PARTRIDGE Center [facility]PITALBFD2QFEffeSyracuse, [place] Repository [address]Lhr: (567) Date:8433-04-31Iydw 00312Pzw: () Name:CARE [id number] () 06/12/2018 TA Vasquez HARDINDOB: Insurance:AETNAPolicy HARDINDOB: [facility] Number: Effective [id number] System PARTRIDGE Date:2018-06-12 PARTRIDGE Repository [place], [place] 6937-94-90RgqgCooper, [place] [phone]: Name:CD:[id number] [id number]: 329672FFPIT[place], [place] (HP) [id number]: [phone]) () [phone] () 06/12/2018 Count includes the [facility] HARDINDOB: Insurance:AetnaPolicy HARDINDOB: Hospitals Number: [id number] Repository PARTRIDGE [id number] 5 [place], [place] Date:Plan Name:[place], [place] [id number]: [id number]: () () 06/01/2018 TA Vasquez HARDINDOB: Insurance:AETNAPolicy HARDINDOB: [facility] Number: Effective [id number] System PARTRIDGE Date:2018-06-01 PARTRIDGE Repository [place] 8240-75-17Uxgz [place] [address]Qyq: Name:CD:[id number] [address]Hgm: 3837[address]WU UMBERTOAnnaSANKET (HP) [phone]: ([phone]) (HP) [phone] () 06/01/2018 TA [facility] HARDINDOB: Insurance:AetnaPolic HARDINDOB: [facility] Number: [id number] Repository PARTRIDGE [id number] 5 [place], [place] Date:Plan Name:[place], [place] [id number]: [phone]: (HP) (HP) 06/01/2018 [facility] Insurance:AetnaPolmercyone [facility] HARDINDOB: Hospitals Number: [id number] Repository [id number] 5 PARTRIDGE Date:Plan Name:[place], [place] [id number]: () 05/16/2018 TA Leonard [facility] TA [facility] HARDINDOB: Insurance:MEDICARE HARDINDOB: [place] AETNA [facility] [id number] [facility] PARTRIDGE Number: 5 PARTRIDGE Center [facility]ITALBFD2QFEffective [place] Repository [address]Hqp: (567) Date:3843-26-25Aghw 22381Zmr: (HP) Name:CARE [phone] () 05/07/2018 TA Leonard Primary TA Leonard [facility] HARDINDOB: Insurance:[facility] HARDINDOB: [facility] Number: [id number] System PARTRIDGE Effective 5 PARTRIDGE Repository [place] Date:2018-05-07 - [place], [place] [id number]: 1091-79-98Hmcw [id number]: Name:CD:[id number] O (HP) [address] [place] [address] ()Tel: [phone]: () [phone] 05/02/2018 TA Leonard Primary TA Leonard [facility] HARDINDOB: Insurance:MEDICARE HARDINDOB: [place] [facility] [id number] [facility] PARTRIDGE Number: 5 PARTRIDMemphis [facility] Medical CenterD2QJo[place], [place] Repository [address]Omm: (567) Date:4053-67-44Wkmi 617[address]Xds: () Name:CARE [id number] () 04/17/2018 TA Leonard Primary TA Leonard Mandae[facility] HARDINDOB: Insurance:[facility] HARDINDOB: [facility] Number: [id number] [facility] PARTRIDGE Effective PARTRIDGE [place], [place] Date:2018-04-17 - [place] [id number]: 5389-72-90Uamu [id number]: Name:CD:[id number] O () [address] [place] [address] ()Tel: [phone]) [phone]: () [phone] 02/20/2018 TA L Primary TA Leonard [facility] HARDINDOB: Insurance:MEDICARE HARDINDOB: [place] [facility] [id number] [facility] PARTRIDGE Number: 5 PARTRIDLakeway HospitalBFD2QFEffeSyracuse, [place] Repository [address]Jan: 567) Date:9033-65-42Katd 364[address]Osn: () Name:CARE [id number] () 01/02/2018 TA L Primary TA L [facility] HARDINDOB: Insurance:MEDICARE HARDINDOB: University AETNA PPOPoly [id number] [facility] PARTRIDGE Number: 5 PAR[place] Center [place] [id number] [place] Repository [address]Gfv: (567) Date:0070-56-06Vgmw 21[address]Djq: () Name:CARE [id number] () 12/27/2017 TA Leonard Primary TA Vasquez HARDINDOB: Insurance:1500 HARDINDOB: [facility] AETNAPoly Number: [id number] System PARTRIDGE Effective 5 PARTRIDGE Repository [place] Date:2017-12-27 - [place] [address]Jiz: 4114-82-18Syzy [id number]: Name:CD:[id number] () [address]VP[place], [place] ()Tel: [phone]: () [phone] 12/20/2017 TA Leonard Primary TA Vasquez HARDINDOB: Insurance:AETNAPolicy HARDINDOB: [facility] Number: Effective [id number] System PARTRIDGE Date:2017-12-20 PARTRIDGE [place]ository [place] 3858-13-58Xklz [place] [address]Xda: Name:CD:[id number] [id number]: [id number] [place] [address] () [id number]: (915) () [phone] (WP)
== END ==
PROVIDERS: Referring Provider Nurse Practitioner Adult Health; Visit Provider Nurse Practitioner Adult Health
DX: R33.9 Retention of urine, unspecified (principal)
CPT/HCPCS: 87077; 87086; 87088; 87186

== ENCOUNTER 2018-11-06 13:44 | Inpatient (IN) | payer MEDICARE, SELFPAY ==
[2018-11-06 14:30] VITALS: BMI 24.0
--- NOTE | 2018-11-06 14:43 | PCM.HP.STD ---
Problem List (1) Complicated UTI (urinary tract infection) Status: Acute (2) Encephalopathy acute Status: Acute (3) Cardiac arrhythmia Status: Suspected Qualifiers: Arrhythmia type: unspecified cardiac arrhythmia Qualified Code(s): I49.9 - Cardiac arrhythmia, unspecified (4) HLD (hyperlipidemia) Status: Chronic Qualifiers: Hyperlipidemia type: unspecified Qualified Code(s): E78.5 - Hyperlipidemia, unspecified (5) BPH (benign prostatic hyperplasia) Status: Chronic Qualifiers: Lower urinary tract symptom presence: symptoms present Lower urinary tract symptom detail: incomplete bladder emptying Qualified Code(s): N40.1 - Benign prostatic hyperplasia with lower urinary tract symptoms; R39.14 - Feeling of incomplete bladder emptying (6) Spastic paraplegia Status: Chronic (7) Neurogenic bladder Status: Chronic (8) History of DVT (deep vein thrombosis) Status: Chronic (9) Iron deficiency anemia Status: Chronic Qualifiers: Iron deficiency anemia type: unspecified iron deficiency Qualified Code(s): D50.9 - Iron deficiency anemia, unspecified (10) History of Clostridium difficile infection Status: Resolved History of Present Illness Date of Admission: 11/06/18 Chief Complaint: Decreased interaction, recent UTI on oral abx The patient is an 78 y/o M w/ PMHx: Spastic tetraplegia, gait disturbance and right hemiparesis, Urogenic Bladder requiring intermittent self catheterization, Dementia unclear type, Fe deficiency anemia, BPH, Possible Cardiac Arrhythmia, HLD, Chronic BL LE Edema who presents to the [facility] as direct admission from [place] ED per patient and family request as follows w/ Dr. Gaming (Urologist) on 11/06/2018 with history of several week attempt to treat an ongoing UTI, unclear organism with cipro and initiation of then nitrofurantoin abx therapy on 11/05/18 with only dose x 1 per PCP direction who now presents with increased weakness and debility above baseline, fatigue, decreased interactiveness including less talkative which routinely occurs with onset UTI x 12-24 hours. In the OSH ED [place] work-up included VS: T 37.2 C, BP 95/43, HR 88, 18 RR, 98% on RA, EKG: Sinus rhythm, CBC: WBC 17.6, Hgb 11.7, Plts 188 with L shift, Bld Pending x 2, BMP: Na 137, K 4.2, BUN/Cr 18/1.1, glucose 116, LA: 0.8, UA: Leuk positive, nitrite positive, WBC 20-50, RBC >50, bacteria +1, UCx pending, Medications: Zosyn IV, NS, Imaging: CXR unremarkable. Prior history requested from technical staff engineer prior to patient transfer included prior UCx w/ most recent noted: 09/06/2018 UCx w/ Enterococcus and normal alexei w/ only 2,000 CFU, 07/2018 treated for UTI however negative culture, 06/2018 > 100,000 CFU Klebsiella pneumoniae noted to be nearly pansensitive except ampicillin resistant. Past Medical History Past Medical History (Chronic Problems): Chronic Problems HLD (hyperlipidemia) (Chronic) BPH (benign prostatic hyperplasia) (Chronic) Spastic paraplegia (Chronic) Neurogenic bladder (Chronic) History of DVT (deep vein thrombosis) (Chronic) Iron deficiency anemia (Chronic) Allergies cephalexin Allergy (Verified 11/06/18 13:36) Hives Sulfa (Sulfonamide Antibiotics) Allergy (Verified 11/06/18 13:36) Hives Home Medications: Ambulatory Orders Medication Instructions Recorded Acetaminophen [Tylenol] 650 mg PO Q4H PRN PRN 11/06/18 Ascorbic Acid [Vitamin C] 100 mg PO DAILY 11/06/18 Baclofen 20 mg PO TID PRN 11/06/18 Bisacodyl [Biscolax] 10 mg RC DAILY PRN 11/06/18 Donepezil HCl [Aricept] 5 mg PO QHS 11/06/18 Ferrous Sulfate 325 mg PO DAILY 11/06/18 Metoprolol Succinate [Toprol Xl] 25 mg PO DAILY 11/06/18 Multivitamin [Once Daily] 1 each PO DAILY 11/06/18 Polyethylene Glycol 3350 [Miralax] 17 gm PO DAILY 11/06/18 Probenecid 500 mg PO DAILY 11/06/18 Sennosides/Docusate Sodium 1 each PO DAILY 11/06/18 [Senna-Docusate Sodium Tablet] Simvastatin [Zocor] 40 mg PO QHS 11/06/18 Tamsulosin HCl [Flomax] 0.8 mg PO DAILY 11/06/18 Surgical History: - - Baclofen pump and replacements serially, cervical neck surgery, IVC filter placement. Psychiatric History: No pertinent psych hx Lives: Spouse/ Significant Other Smoking Status: Never smoker Tobacco Use: Non-smoker Alcohol: None Drugs: None - *Family History Maternal History Items: - - Patient has a maternal family history of hypertension. Paternal History Items: - - Patient father was relatively healthy, no history of hypertension, hyperlipidemia, heart disease, diabetes per spouse report. Review of Systems Constitutional: Reports: Anorexia, Malaise, Weakness, Fatigue. Denies: Chills, Fever, Weight Change HEENT: Reports: Hard of Hearing. Denies: Head Aches, Sinus Congestion, Sinus Drainage Cardiovascular: Denies: Chest Pain, Palpitations Respiratory: Denies: Cough, Shortness of breath at rest, Sputum production Gastrointestinal: Denies: Abdominal Pain, Nausea, Vomiting Genitourinary: Reports: Frequency, Hesitancy, Retention. Denies: Dysuria Musculoskeletal: Reports: Back Pain, Joint Pain. Denies: Joint Tenderness Skin: Denies: Rash, Wounds Neurological: Reports: Confusion, - - Spastic tetraplegia.. Denies: Focal weakness, Numbness, Tingling Psychiatric: Denies: Anxiety, Depression, Homicidal Ideations, Suicidal Ideations Hematologic/ Lymphatic: Reports: Anemia. Denies: Easy Bruising, Easy Bleeding VTE Information - Inpt Only VTE Present on Admission: No VTE Mechan Device Prophylaxis: SCD's VTE Pharm Prophylaxis ordered?: Yes Patient Problems: Active and Suspected Problems Cardiac arrhythmia (Suspected) Complicated UTI (urinary tract infection) (Acute) Encephalopathy acute (Acute) Subjective: Patient seated upright in the bed, fatigued appearance, not markedly interactive, not answering orientation questions. Objective: Physical Examination: General: awake, intermittently appears alert, not answering orientation questions, seated upright in bed in no apparent distress. Skin: normal color, turgor, no icterus, cyanosis. HEENT: AT/NC, EOM difficult to assess given presentation, PERRLA, dry MM, no carotid bruits or JVD noted. Lungs: CTA bilaterally, moderate effort, mild decrease BL bases, no rales, ronchi or wheezing. Heart: Regular rate and rhythm; no gallop, rub audible. Abdomen: soft, NTTP including suprapubic region, ND, normal BS, no HSM. Extremities: no cyanosis, clubbing, BL LE midshin to pedal 1-2+ edema. Neurological: awake, intermittently appears alert, not answering orientation questions, seated upright in bed in no apparent distress; cognitive function not baseline intact; pupils equally reactive to light and accomodation; cranial nerves difficult to assess given encephalopathy, moving all 4 extremities but limited given spastic tetraplegia, strength severely globally decreased. Psychiatric: affect appears flat, no acute evidence of depressive or anxiety feelings. Assessment/Plan All Active Problems History of Clostridium difficile infection (Resolved) Complicated UTI (urinary tract infection) (Acute) Encephalopathy acute (Acute) The patient is an 78 y/o M w/ PMHx: Spastic tetraplegia, gait disturbance and right hemiparesis, Urogenic Bladder requiring intermittent self catheterization, Dementia unclear type, Fe deficiency anemia, BPH, Possible Cardiac Arrhythmia, HLD, Chronic BL LE Edema who presents to the [facility] as direct admission from [place] on 11/06/2018 with history of several week attempt to treat an ongoing UTI, unclear organism with cipro and initiation of then nitrofurantoin abx therapy on 11/05/18 with only dose x 1 per PCP direction who now presents with increased weakness and debility above baseline, fatigue, decreased interactiveness including less talkative which routinely occurs with onset UTI x 12-24 hours. (1) Acute Encephalopathy secondary to Acute Complicated Urinary Tract Infection w/ Chronic Self Catheterization History: Will admit to [facility] upon ED evaluation at OSH noted to be remarkable however unclear SEC, pending UCx at OSH [place] and Bld Cx x 2, admission CBC w/ WBC 17.6 with left shift with normal LA, continue IVFs, monitor I/Os, continue IV Zosyn as possible pseudomonas history, noted recent tolerance as well as listed allergies with recent failure cipro plus additional abx unclear type outpatient w/ transition as able pending sensitivities and speciation from UCx at [place]. Bld cx x 2 obtained in the ED at [place] and pending. Will repeat UA/UCx to be able to have culture here, now s/p only treatment abx x 1. (2) Spastic tetraplegia, gait disturbance and right hemiparesis: Fall precautions, position changes, monterroso in place from OSH ED, usually strait catheterization at home, likely has some colonization. Baclofen pump in place, continue PRN baclofen also. PT, OT, CM consultations. (3) Dementia unclear type w/ unclear behavioral disturbance history: Fall precautions, orientation as needed, CM consulted, continue home aricept regimen. (4) Fe deficiency anemia: OSH ED Hgb 11.7, continue Fe supplementation. (5) Hyperlipidemia: Continue home statin regimen. (6) Suspected Cardiac arrhythmia, unclear type, possibly atrial fibrillation: Will hold metoprolol given hypotension. notes BP routinely low. Suspect usage of BB for alternate reason and she notes indoor landscaper/gardener stated irregular rhythm but unclear type. Suspect not anticoagulated secondary to fall risk high. (7) BPH: Continue flomax, given ongoing symptoms planned upcoming Urolift with Dr. Gaming 11/16/18, will update regarding admission as this may delay intervention. (8) History of DVT: Prophylaxis as noted, ANTONIO wraps, SCDs (9) BL LE Edema: Stable over last 2 months, had been on for BL LE chronic edema, taken off for unclear reason, renal function appropriate, given hypotensive tendency will defer reuse especially given ongoing IVFs given presentation, place ANTONIO wraps, elevation. (10) DVT Prophylaxis: SCDs, heparin w/ hold if worsened hematuria. (11) CODE status: Discussed CODE status at length including difference between FULL code, DNR-CCA and DNR-CC status. Following discussions about the differences in these status, confirmed DNR-CCA, no intubation status. HCPOA. Living will in place. Advanced Care Planning Face to Face Time: 16 minutes. Code Visit Inpatient E&M: 51809 Init Hosp L3 Procedures: 11489 Advncd Care Plan 30 Min
[2018-11-06 14:55] VITALS: BP 99/38; PULSE 90; RESP 20; TEMP 37.1; O2SAT 94
[2018-11-06 15:04] VITALS: BP 108/47; PULSE 87
[2018-11-06 15:11] LABS: Magnesium 1.9 mg/dL (1.6-2.6); Phosphorus 3.2 mg/dL (2.5-4.9)
[2018-11-06] MEDS: 0.9% Normal Saline 1,000 ML 100 ML IV (15:29)
[2018-11-06 15:31] LABS: Color, Urine Yellow (Yellow); Glucose, Dipstick Normal (Normal); Ketone-Dipstick Negative (Negative); Leukocyte Esterase-Dipstick 500 /ul (Negative); Nitrite-Dipstick Negative (Negative); Occult Blood-Urine 250 /ul (Negative); Protein-Dipstick 30 mg/dl (Negative); Urine Bilirubin Dipstick Negative (Negative); Urine Clarity Cloudy (Clear); Urine Urobilinogen Normal (Normal)
[2018-11-06 15:33] VITALS: O2SAT 94
[2018-11-06 15:37] LABS: Red Blood Cells-Urine 50-100 SEEN /hpf (0-5)
[2018-11-06 15:38] LABS: Squamous Epithelial Cells - UA 0-5 SEEN /hpf (0-5); White Blood Cells 10-25 SEEN /hpf (0-5)
[2018-11-06 15:39] LABS: Bacteria 1+ /hpf (None Seen); Mucous, Urine RARE /hpf (<or=2+)
[2018-11-06 22:00] VITALS: BP 116/52; PULSE 80; RESP 16; TEMP 36.8; O2SAT 95
[2018-11-06] MEDS: Piperacil/Tazobactam 3.375 GM/50 ML ML IV (22:03)
[2018-11-06] MEDS: Heparin Injection (Vial) 5,000 UNIT/ML VIAL 5000 UNIT SC (22:03)
[2018-11-06] MEDS: Atorvastatin Calcium 20 MG Tablet PO (22:04)
[2018-11-06] MEDS: Donepezil HCl 5 MG Tablet PO (22:04)
[2018-11-06] MEDS: Acetaminophen 325 MG Tablet 650 MG PO (22:26)
[2018-11-06] MEDS: Baclofen 10 MG Tablet 20 MG PO (22:26)
[2018-11-06] MEDS: Senna/Docusate Sodium 1 Tablet 2 TABLET PO (22:26)
[2018-11-07] MEDS: 0.9% Normal Saline 1,000 ML 100 ML IV ×3 (01:20→22:38)
[2018-11-07 01:27] VITALS: BP 98/44; PULSE 88; RESP 16; TEMP 37.5; O2SAT 96
[2018-11-07] MEDS: Piperacil/Tazobactam 3.375 GM/50 ML ML IV ×3 (05:03→22:38)
[2018-11-07] MEDS: Acetaminophen 325 MG Tablet 650 MG PO (05:03)
[2018-11-07 06:20] LABS: Absolute Lymphocyte Count 1.86 X10^3/ul (0.83-4.51); Basophil# 0.01 X10^3/uL; Basophil% 0.1 % (0-1); Eosinophil# 0.11 X10^3/uL; Eosinophils% 1.4 % (0-5); Hematocrit 31.6 % (40-54); Hemoglobin 10.2 g/dl (13.0-16.5); Lymphocyte # 1.86 X10^3/ul (4.0); Lymphocyte % 24.2 % (19-41); Mean Corp Hgb Conc 32.3 g/gl (32-36); Mean Corpuscular Hgb 27.8 pg (27.0-32.0); Mean Corpuscular Volume 86.1 fL (80-94); Mean Platelet Vol. 9.6 fl (6.2-12.0); Monocyte# 0.65 X10^3/uL; Monocyte% 8.5 % (0-10); Neutrophil # 5.04 X10^3/uL (2.7-7.7); Neutrophil % 65.7 % (47-70); Platelet Count 168 K/mm3 (150-450); RBC Distribution Width CV 16.3 % (11.6-14.6); RBC Distribution Width SD 51.8 fl (35.1-43.9); Red Blood Count 3.67 M/mm3 (4.6-6.2); White Blood Count 7.7 K/mm3 (4.4-11.0)
[2018-11-07 06:25] LABS: POSITIVE COUNT NO; POSITIVE DIFFERENTIAL NO; POSITIVE MORPHOLOGY NO
[2018-11-07 06:28] LABS: Anion Gap 9 (5-15); BUN 23 mg/dL (7-18); BUN/Creat Ratio 15.8 RATIO (10-20); Calcium,Total 8.5 mg/dL (8.5-10.1); Chloride 107 mmol/L (98-107); Creatinine, Serum 1.46 mg/dL (0.70-1.30); EST Glomerular Filtration Rate 49 mL/min (>60); Est Glom Filt Rate - Afr Amer 60 mL/min (>60); Estimated Creatinine Clearance 42.98 ml/min; Glucose 92 mg/dL (74-106); Potassium 3.9 mmol/L (3.5-5.1); Sodium Level 144 mmol/L (136-145)
[2018-11-07 07:30] VITALS: BP 133/56; PULSE 89; RESP 18; TEMP 36.8; O2SAT 92
[2018-11-07] MEDS: Ferrous Sulfate 325 MG Tablet PO (08:23)
[2018-11-07] MEDS: Heparin Injection (Vial) 5,000 UNIT/ML VIAL 5000 UNIT SC ×2 (08:23→20:36)
[2018-11-07] MEDS: Tamsulosin HCl 0.4 MG Capsule 0.8 MG PO (08:23)
[2018-11-07] MEDS: Polyethylene Glycol 3350 17 GM PACKET PO (08:24)
--- NOTE | 2018-11-07 11:10 | CASEMGMT ---
RN JAYCEE Face to Face with patient for initial transition planning/care coordination assessment. RN CM introduced self and role at [facility]. Patient sitting in chair, alert and oriented, at bedside. Patient willing to participate in assessment and is able to answer all questions appropriately. Care providers, pharmacy, and demographics verified. Patient wishes to discharge home with resumption of HHC with [facility]. Patient states he has no further needs or concerns at this time. CM to follow for discharge planning needs that may arise. PCP: [place] Specialists: Josie Gaming Pharmacy: [facility] Gerald [facility] [place] Prescription Benefit: Yes Living Will/HPOA: Yes Gloria Dubose HPOA LNOK: Living Arrangements: Patient lives with who assists with care in a Condo. Transportation: DME/HHC: Patient has shower chair, BSC, raised toilet, grab bars, walker, wc at home. Patient current with [facility] HHC Disposition Plan: Patient to discharge home with HHC, family support, and follow-up plans in place. Ena AZARN, RN, CM
--- NOTE | 2018-11-07 11:29 | PCM.PN.HOSP ---
Patient Problems: Active and Suspected Problems Cardiac arrhythmia (Suspected) Complicated UTI (urinary tract infection) (Acute) Encephalopathy acute (Acute) Subjective: Patient seen and examined. He was admitted with a complaint of altered mental status is been managed for acute metabolic encephalopathy due to UTI. Patient is looking much better and is awake and alert and was eating breakfast with assistance. He could not remember what brought him to the hospital but states he has an impaired memory due to dementia. He denied any fever or chills today and denied any shortness of breath or abdominal pain, palpitations diarrhea or vomiting. Review of systems otherwise negative. Was supposed to have a procedure by Dr. Zapata patient cannot remember which procedure. Dr. Johns will be consulted to review patient as states he has been having repeated UTIs and is due to have this procedure. Vitals/I&O's: Vital Signs Temp Pulse Resp BP Pulse Ox 98.2 F 89 18 133/56 H 92 11/07/18 07:30 11/07/18 07:30 11/07/18 07:30 11/07/18 07:30 11/07/18 07:30 Oxygen Delivery Method Room Air Weight: 171 lb 15.369 oz Body Mass Index (BMI) 24.0 Intake and Output for Last 24 Hours 11/05/18 11/06/18 11/07/18 23:59 23:59 23:59 Intake Total 946 / 946 832 / 832 Output Total 550 / 550 400 / 400 Balance 396 / 396 432 / 432 General: Alert, Cooperative, No apparent distress HEENT: Atraumatic, PERRLA, EOMI, Normocephalic Oral: Dry Mucosa Neck: Supple, No JVD, Negative Carotid Bruits Lungs: Clear to auscultation, Normal air movement, No rhonchi, No wheeze, No rales Cardiovascular: Regular rate, Regular Rhythm, Normal S1, Normal S2, No murmurs Abdomen: Bowel Sounds Present, Soft, Non Tender, Non-Distended, No Hepato-splenomegaly Extremities: No clubbing, No cyanosis, No edema, Capillary Refill Less than 3 Seconds Skin: No rashes, No breakdown Musculoskeletal: No Tenderness to Palpation of Joints or Extremities, - - has some contractures of upper and lower extremities Lymphatic: No Cervical, Supraclavicular, or Inguinal Adenopathy Neurological: Cranial nerves II-XII grossly intact, Neuro grossly intact Psych/Mental Status: Normal Affect, Appropriate Microbiology Past 72 Hours 11/06/18 15:00 Urine Catheter - [place] Urine Culture - Preliminary GNR Poss Pseudomonas sp Laboratory Results 11/06/18 14:47: Phosphorus 3.2, Magnesium 1.9 11/06/18 15:00: Urine Color Yellow, Urine Clarity Cloudy, Urine pH 7.0, Ur Specific [place] 1.010, Urine Protein 30 H, Urine Glucose (UA) Normal, Urine Ketones Negative, Urine Occult Blood 250 H, Urine Nitrite Negative, Urine Bilirubin Negative, Urine Urobilinogen Normal, Ur Leukocyte Esterase 500 H, Urine RBC 50-100 SEEN, Urine WBC 10-25 SEEN, Ur Squamous Epith Cells 0-5 SEEN, Urine Bacteria 1+, Urine Mucus RARE 11/07/18 05:30: WBC 7.7, RBC 3.67 L, Hgb 10.2 L, Hct 31.6 L, MCV 86.1, MCH 27.8, MCHC 32.3, RDW 16.3 H, RDW Differential 51.8 H, Plt Count 168, MPV 9.6, Immature Gran % (Auto) 0.100, Neut % (Auto) 65.7, Lymph % (Auto) 24.2, [place] % (Auto) 8.5, Eos % (Auto) 1.4, Baso % (Auto) 0.1, Absolute Neuts (auto) 5.0, Absolute Lymphs (auto) 1.86, Total Counted Not Reportable 11/07/18 05:30: Sodium 144, Potassium 3.9, Chloride 107, Carbon Dioxide 28.0, Anion Gap 9, BUN 23 H, Creatinine 1.46 H, Estim Creat Clear Calc 42.98, Est GFR (MDRD) Af Amer 60, Est GFR (MDRD) Non-Af 49 L, BUN/Creatinine Ratio 15.8, Glucose 92, Calcium 8.5 Current Medications Acetaminophen (Tylenol) 650 mg PO Q6H PRN PRN PRN Reason: Mild Pain (scale 0-3)/T>100.7 Last Admin: 11/07/18 05:03 Dose: 650 mg Al Hydroxide/Mg Hydroxide (Mylanta Ii) 30 ml PO Q6H PRN PRN PRN Reason: Gastric burning Atorvastatin Calcium (Lipitor) 20 mg PO QHS [facility] Last Admin: 11/06/18 22:04 Dose: 20 mg Baclofen (Lioresal) 20 mg PO TID PRN PRN PRN Reason: PAIN Last Admin: 11/06/18 22:26 Dose: 20 mg Bisacodyl (Dulcolax) 10 mg RECTAL DAILY PRN PRN Reason: Constipation Donepezil HCl (Aricept) 5 mg PO QHS [facility] Last Admin: 11/06/18 22:04 Dose: 5 mg Ferrous Sulfate (Ferrous Sulfate) 325 mg PO DAILYCM [facility] Last Admin: 11/07/18 08:23 Dose: 325 mg Heparin Sodium (Porcine) (Heparin Na) 5,000 unit SC Q12 [facility] Last Admin: 11/07/18 08:23 Dose: 5,000 unit Sodium Chloride () 1,000 mls @ 100 mls/hr IV .Q10H [facility] Last Admin: 11/07/18 01:20 Dose: 100 mls/hr Piperacillin Sod/Tazobactam Sod (Zosyn) 3.375 gm in 50 mls @ 12.5 mls/hr IV Q8 [facility] Last Admin: 11/07/18 05:03 Dose: 12.5 mls/hr Magnesium Hydroxide (Milk Of Magnesia) 30 ml PO DAILY PRN PRN PRN Reason: Constipation Nutritional Formula (Lactose Free) (Ensure Enlive) 120 ml PO 4X/DAY [facility] Last Admin: 11/07/18 08:27 Dose: 120 ml Ondansetron HCl (Zofran) 4 mg IV Q8H PRN PRN PRN Reason: NAUSEA Polyethylene Glycol (Miralax) 17 gm PO DAILY [facility] Last Admin: 11/07/18 08:24 Dose: 17 gm Promethazine HCl (Phenergan) 12.5 mg IV Q6H PRN PRN PRN Reason: NAUSEA/VOMITING Psyllium Hydrophilic Mucilloid (Metamucil) 1 packet PO DAILY PRN PRN PRN Reason: CONSTIPATION Senna/Docusate Sodium (Senokot-S, Lata-Colace) 2 tablet PO BID PRN PRN Reason: Constipation Last Admin: 11/06/18 22:26 Dose: 2 tablet Sodium Chloride () 5 - 15 ml IV UD PRN PRN Reason: SALINE FLUSH Tamsulosin HCl (Flomax) 0.8 mg PO DAILY [facility] Last Admin: 11/07/18 08:23 Dose: 0.8 mg Medical Necessity - Tobacco Use Smoking Status: Never smoker Tobacco Use: Non-smoker Assessment/Plan All Active Problems History of Clostridium difficile infection (Resolved) Complicated UTI (urinary tract infection) (Acute) Encephalopathy acute (Acute) 1. Acute metabolic encephalopathy due to UTI has urogenic bladder and requires intermittent self catheterisation failed outpatient therapy with cipro and nitrofurantoin had wbc of 17.6 in [place] [facility], now wbc is 7.7 blood and urine cultures ordered on admission urine cultured Possible Pseudomonas on IV zosyn; will continue 2. Spastic tetraplegia with right hemiparesis fall precautions Baclofen pump in place PT/OT on board 3. Hyperlipidemia: on statin 4.? A. fib: Metoprolol held on admission due to low BP though said his blood pressure is always low. is rate and rhythm controlled 5. BPH: on flomax 6. History of neurogenic bladder as under 1. urology consulted as said he was supposed to have a procedure done by Dr Gaming. usually self catheterises at home. currently has catheter in place 7. History of DVT: SCDs. No anticoagulation o/a of fall risk 8. Dementia: fall pecautions. On Aricept 9. Iron deficiency anemia: Hb is 10.2. Is a normocytic normochromic anemia. On iron supplements 10. Bilateral LE edema: ANTONIO wraps. DVT prophylaxis; SCDs Code Visit Inpatient E&M: 19317 Subs Hosp L3
--- NOTE | 2018-11-07 11:35 | PN_ITS ---
Patient Problems: Active and Suspected Problems Cardiac arrhythmia (Suspected) Complicated UTI (urinary tract infection) (Acute) Encephalopathy acute (Acute) Subjective: Patient seen and examined. He was admitted with a complaint of altered mental status is been managed for acute metabolic encephalopathy due to UTI. Patient is looking much better and is awake and alert and was eating breakfast with assistance. He could not remember what brought him to the hospital but states he has an impaired memory due to dementia. He denied any fever or chills today and denied any shortness of breath or abdominal pain, palpitations diarrhea or vomiting. Review of systems otherwise negative. Was supposed to have a procedure by Dr. Zapata patient cannot remember which procedure. Dr. Johns will be consulted to review patient as states he has been having repeated UTIs and is due to have this procedure. Vitals/I&O's: Vital Signs Temp Pulse Resp BP Pulse Ox 98.2 F 89 18 133/56 H 92 11/07/18 07:30 11/07/18 07:30 11/07/18 07:30 11/07/18 07:30 11/07/18 07:30 Oxygen Delivery Method Room Air Weight: 171 lb 15.369 oz Body Mass Index (BMI) 24.0 Intake and Output for Last 24 Hours 11/05/18 11/06/18 11/07/18 23:59 23:59 23:59 Intake Total 946 / 946 832 / 832 Output Total 550 / 550 400 / 400 Balance 396 / 396 432 / 432 General: Alert, Cooperative, No apparent distress HEENT: Atraumatic, PERRLA, EOMI, Normocephalic Oral: Dry Mucosa Neck: Supple, No JVD, Negative Carotid Bruits Lungs: Clear to auscultation, Normal air movement, No rhonchi, No wheeze, No rales Cardiovascular: Regular rate, Regular Rhythm, Normal S1, Normal S2, No murmurs Abdomen: Bowel Sounds Present, Soft, Non Tender, Non-Distended, No Hepato- splenomegaly Extremities: No clubbing, No cyanosis, No edema, Capillary Refill Less than 3 Seconds Skin: No rashes, No breakdown Musculoskeletal: No Tenderness to Palpation of Joints or Extremities, - - has some contractures of upper and lower extremities Lymphatic: No Cervical, Supraclavicular, or Inguinal Adenopathy Neurological: Cranial nerves II-XII grossly intact, Neuro grossly intact Psych/Mental Status: Normal Affect, Appropriate Microbiology Past 72 Hours 11/06/18 15:00 Urine Catheter - [place] Urine Culture - Preliminary GNR Poss Pseudomonas sp Laboratory Results 11/06/18 14:47: Phosphorus 3.2, Magnesium 1.9 11/06/18 15:00: Urine Color Yellow, Urine Clarity Cloudy, Urine pH 7.0, Ur Specific [place] 1.010, Urine Protein 30 H, Urine Glucose (UA) Normal, Urine Ketones Negative, Urine Occult Blood 250 H, Urine Nitrite Negative, Urine Bilirubin Negative, Urine Urobilinogen Normal, Ur Leukocyte Esterase 500 H, Urine RBC 50-100 SEEN, Urine WBC 10-25 SEEN, Ur Squamous Epith Cells 0-5 SEEN, Urine Bacteria 1+, Urine Mucus RARE 11/07/18 05:30: WBC 7.7, RBC 3.67 L, Hgb 10.2 L, Hct 31.6 L, MCV 86.1, MCH 27.8, MCHC 32.3, RDW 16.3 H, RDW Differential 51.8 H, Plt Count 168, MPV 9.6, Immature Gran % (Auto) 0.100, Neut % (Auto) 65.7, Lymph % (Auto) 24.2, [place] % (Auto) 8.5, Eos % (Auto) 1.4, Baso % (Auto) 0.1, Absolute Neuts (auto) 5.0, Absolute Lymphs (auto) 1.86, Total Counted Not Reportable 11/07/18 05:30: Sodium 144, Potassium 3.9, Chloride 107, Carbon Dioxide 28.0, Anion Gap 9, BUN 23 H, Creatinine 1.46 H, Estim Creat Clear Calc 42.98, Est GFR (MDRD) Af Amer 60, Est GFR (MDRD) Non-Af 49 L, BUN/Creatinine Ratio 15.8, Glucose 92, Calcium 8.5 Current Medications Acetaminophen (Tylenol) 650 mg PO Q6H PRN PRN PRN Reason: Mild Pain (scale 0-3)/T>100.7 Last Admin: 11/07/18 05:03 Dose: 650 mg Al Hydroxide/Mg Hydroxide (Mylanta Ii) 30 ml PO Q6H PRN PRN PRN Reason: Gastric burning Atorvastatin Calcium (Lipitor) 20 mg PO QHS [facility] Last Admin: 11/06/18 22:04 Dose: 20 mg Baclofen (Lioresal) 20 mg PO TID PRN PRN PRN Reason: PAIN Last Admin: 11/06/18 22:26 Dose: 20 mg Bisacodyl (Dulcolax) 10 mg RECTAL DAILY PRN PRN Reason: Constipation Donepezil HCl (Aricept) 5 mg PO QHS [facility] Last Admin: 11/06/18 22:04 Dose: 5 mg Ferrous Sulfate (Ferrous Sulfate) 325 mg PO DAILYCM [facility] Last Admin: 11/07/18 08:23 Dose: 325 mg Heparin Sodium (Porcine) (Heparin Na) 5,000 unit SC Q12 [facility] Last Admin: 11/07/18 08:23 Dose: 5,000 unit Sodium Chloride () 1,000 mls @ 100 mls/hr IV .Q10H [facility] Last Admin: 11/07/18 01:20 Dose: 100 mls/hr Piperacillin Sod/Tazobactam Sod (Zosyn) 3.375 gm in 50 mls @ 12.5 mls/hr IV Q8 [facility] Last Admin: 11/07/18 05:03 Dose: 12.5 mls/hr Magnesium Hydroxide (Milk Of Magnesia) 30 ml PO DAILY PRN PRN PRN Reason: Constipation Nutritional Formula (Lactose Free) (Ensure Enlive) 120 ml PO 4X/DAY [facility] Last Admin: 11/07/18 08:27 Dose: 120 ml Ondansetron HCl (Zofran) 4 mg IV Q8H PRN PRN PRN Reason: NAUSEA Polyethylene Glycol (Miralax) 17 gm PO DAILY [facility] Last Admin: 11/07/18 08:24 Dose: 17 gm Promethazine HCl (Phenergan) 12.5 mg IV Q6H PRN PRN PRN Reason: NAUSEA/VOMITING Psyllium Hydrophilic Mucilloid (Metamucil) 1 packet PO DAILY PRN PRN PRN Reason: CONSTIPATION Senna/Docusate Sodium (Senokot-S, Lata-Colace) 2 tablet PO BID PRN PRN Reason: Constipation Last Admin: 11/06/18 22:26 Dose: 2 tablet Sodium Chloride () 5 - 15 ml IV UD PRN PRN Reason: SALINE FLUSH Tamsulosin HCl (Flomax) 0.8 mg PO DAILY [facility] Last Admin: 11/07/18 08:23 Dose: 0.8 mg Medical Necessity - Tobacco Use Smoking Status: Never smoker Tobacco Use: Non-smoker Assessment/Plan All Active Problems History of Clostridium difficile infection (Resolved) Complicated UTI (urinary tract infection) (Acute) Encephalopathy acute (Acute) 1. 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 Spastic tetraplegia with right hemiparesis * fall precautions * Baclofen pump in place * PT/OT on board * 3. Hyperlipidemia: on statin 4.? A. fib: * Metoprolol held on admission due to low BP though said his blood pressure is always low. * is rate and rhythm controlled * 5. BPH: on flomax 6. History of neurogenic bladder * as under 1. * urology consulted as said he was supposed to have a procedure done by Dr Gaming. * usually self catheterises at home. * currently has catheter in place * 7. History of DVT: SCDs. No anticoagulation o/a of fall risk 8. Dementia: fall pecautions. On Aricept 9. Iron deficiency anemia: Hb is 10.2. Is a normocytic normochromic anemia. On iron supplements 10. Bilateral LE edema: ANTONIO wraps. DVT prophylaxis; SCDs Code Visit Inpatient E&M: 66611 [facility] Hosp L3
--- NOTE | 2018-11-07 12:08 | PCM.CONS.U ---
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 He has a history of BPH with obstruction. We were considering a surgical procedure in the office call viviana but recently was admitted to the hospital with a urinary tract infection at this point can hold off on the cystoscopy given the recent infection his only symptoms were lethargy and not feeling well and confusion. He has poor bladder emptying and his catheterizes him twice a day once in the morning once in the evening usually gets between 500-800 cc of urine. At this point he is doing better now that admitted to the hospital and on antibiotics. Past Medical History Past Medical History (Chronic Problems): Chronic Problems HLD (hyperlipidemia) (Chronic) BPH (benign prostatic hyperplasia) (Chronic) Spastic paraplegia (Chronic) Neurogenic bladder (Chronic) History of DVT (deep vein thrombosis) (Chronic) Iron deficiency anemia (Chronic) Allergies cephalexin Allergy (Verified 11/06/18 13:36) Hives Sulfa (Sulfonamide Antibiotics) Allergy (Verified 11/06/18 13:36) Hives Home Medications: Ambulatory Orders Medication Instructions Recorded Acetaminophen [Tylenol] 650 mg PO Q4H PRN PRN 11/06/18 Ascorbic Acid [Vitamin C] 100 mg PO DAILY 11/06/18 Baclofen 20 mg PO TID PRN 11/06/18 Bisacodyl [Biscolax] 10 mg RC DAILY PRN 11/06/18 Donepezil HCl [Aricept] 5 mg PO QHS 11/06/18 Ferrous Sulfate 325 mg PO DAILY 11/06/18 Metoprolol Succinate [Toprol Xl] 25 mg PO DAILY 11/06/18 Multivitamin [Once Daily] 1 each PO DAILY 11/06/18 Polyethylene Glycol 3350 [Miralax] 17 gm PO DAILY 11/06/18 Probenecid 500 mg PO DAILY 11/06/18 Sennosides/Docusate Sodium 1 each PO DAILY 11/06/18 [Senna-Docusate Sodium Tablet] Simvastatin [Zocor] 40 mg PO QHS 11/06/18 Tamsulosin HCl [Flomax] 0.8 mg PO DAILY 11/06/18 Surgical History: - - Baclofen pump and replacements serially, cervical neck surgery, IVC filter placement. Psychiatric History: No pertinent psych hx Lives: Spouse/ Significant Other Smoking Status: Never smoker Tobacco Use: Non-smoker Alcohol: None Drugs: None - *Family History Maternal History Items: - - Patient has a maternal family history of hypertension. Paternal History Items: - - Patient father was relatively healthy, no history of hypertension, hyperlipidemia, heart disease, diabetes per spouse report. Review of Systems Constitutional: Denies: Chills, Fever, Weight Change HEENT: Denies: Head Aches, Sinus Congestion, Sinus Drainage Cardiovascular: Denies: Chest Pain, Palpitations Respiratory: Denies: Cough, Shortness of breath at rest, Sputum production Gastrointestinal: Denies: Abdominal Pain, Nausea, Vomiting Genitourinary: Denies: Dysuria Musculoskeletal: Denies: Joint Pain, Joint Tenderness Skin: Denies: Rash, Wounds Neurological: Denies: Numbness, Tingling, Focal weakness Psychiatric: Denies: Anxiety, Depression, Homicidal Ideations, Suicidal Ideations Hematologic/ Lymphatic: Denies: Easy Bruising, Easy Bleeding Physical Exam - Physical Exam Vital Signs Temp 98.2 F 11/07/18 07:30 Pulse 89 11/07/18 07:30 Resp 18 11/07/18 07:30 BP 133/56 H 11/07/18 07:30 Pulse Ox 92 11/07/18 07:30 Intake & Output 11/05/18 11/06/18 11/07/18 23:59 23:59 23:59 Intake Total 946 / 946 832 / 832 Output Total 550 / 550 400 / 400 Balance 396 / 396 432 / 432 Weight: 78 kg Intake: Oral 120 / 120 120 / 120 IV fluid/meds 826 / 826 712 / 712 Output: Urine 550 / 550 400 / 400 Other: Number of Bowel Movements 1 General: Alert HEENT: Atraumatic Oral: Moist Mucosa Neck: Supple Lungs: Normal air movement Microbiology Past 72 Hours 11/06/18 15:00 Urine Culture - Preliminary Urine Catheter - [place] GNR Poss Pseudomonas sp Laboratory Tests Past 24 Hrs 11/06/18 11/06/18 11/07/18 14:47 15:00 05:30 WBC 7.7 RBC 3.67 L Hgb 10.2 L Hct 31.6 L MCV 86.1 MCH 27.8 MCHC 32.3 RDW 16.3 H RDW Differential 51.8 H Plt Count 168 MPV 9.6 Immature Gran % (Auto) 0.100 Neut % (Auto) 65.7 Lymph % (Auto) 24.2 [place] % (Auto) 8.5 Eos % (Auto) 1.4 Baso % (Auto) 0.1 Absolute Neuts (auto) 5.0 Absolute Lymphs (auto) 1.86 Total Counted Not Reportable Sodium Potassium Chloride Carbon Dioxide Anion Gap BUN Creatinine Estim Creat Clear Calc Est GFR (MDRD) Af Amer Est GFR (MDRD) Non-Af BUN/Creatinine Ratio Glucose Calcium Phosphorus 3.2 Magnesium 1.9 Urine Color Yellow Urine Clarity Cloudy Urine pH 7.0 Ur Specific [place] 1.010 Urine Protein 30 H Urine Glucose (UA) Normal Urine Ketones Negative Urine Occult Blood 250 H Urine Nitrite Negative Urine Bilirubin Negative Urine Urobilinogen Normal Ur Leukocyte Esterase 500 H Urine RBC 50-100 SEEN Urine WBC 10-25 SEEN Ur Squamous Epith Cells 0-5 SEEN Urine Bacteria 1+ Urine Mucus RARE 11/07/18 05:30 WBC RBC Hgb Hct MCV MCH MCHC RDW RDW Differential Plt Count MPV Immature Gran % (Auto) Neut % (Auto) Lymph % (Auto) [place] % (Auto) Eos % (Auto) Baso % (Auto) Absolute Neuts (auto) Absolute Lymphs (auto) Total Counted Sodium 144 Potassium 3.9 Chloride 107 Carbon Dioxide 28.0 Anion Gap 9 BUN 23 H Creatinine 1.46 H Estim Creat Clear Calc 42.98 Est GFR (MDRD) Af Amer 60 Est GFR (MDRD) Non-Af 49 L BUN/Creatinine Ratio 15.8 Glucose 92 Calcium 8.5 Phosphorus Magnesium Urine Color Urine Clarity Urine pH Ur Specific [place] Urine Protein Urine Glucose (UA) Urine Ketones Urine Occult Blood Urine Nitrite Urine Bilirubin Urine Urobilinogen Ur Leukocyte Esterase Urine RBC Urine WBC Ur Squamous Epith Cells Urine Bacteria Urine Mucus Assessment/Plan All Active Problems History of Clostridium difficile infection (Resolved) Complicated UTI (urinary tract infection) (Acute) Encephalopathy acute (Acute) 78-year-old male known to my practice with BPH and obstruction admitted for urinary tract infection. For now continue with antibiotics. When he gets discharged we can remove the catheter and the can resume self intermittent catheterization she was doing at least twice a day. He has an appointment my office coming up in about a week recommended to keep that appointment at that point we will plan to do a cystoscopy to evaluate his prostate and a urinary channel to see if anything different we can do or any procedures to get did help with the bladder emptying certainly is at risk for recurrent UTIs given his poor bladder emptying the need for self intermittent catheterization. I would not prescribe chronic antibiotics given the resistance that can happen but recommended that may be retry methenamine and after I see him. If any questions please give me a call he can go home remove the catheter before going home and I called my office.
[2018-11-07 13:30] VITALS: BP 142/64; PULSE 70; RESP 18; TEMP 36.6; O2SAT 96
--- NOTE | 2018-11-07 14:32 | CHAPLAIN ---
Type of Pastoral Visit _x__ Initial Visit ___ Follow-up Visit ___ On-call Visit ___ General Patient Visit ___ Spiritual Assessment ___ Family Conference ___ Bereavement ___ Rapid Response ___ Code Blue ___ Other (describe below) Pastoral Care Referral From _x__ Patient ___ Family ___ Nurse ___ Physician ___ Traffic Chief ___ Hyperion Administrator ___ Other (describe below) Sacrament/Intervention _x__ Active listening ___ Anointing ___ Amish ___ Bereavement ___ Communion _x__ Adina exploration ___ ___ Life review _x__ Prayer ___ Reconciliation ___ Sacrament of Sick ___ Supportive presence ___ Wedding ___ Other (describe below) Pastoral Comments
[2018-11-07 20:15] VITALS: BP 151/82; PULSE 86; RESP 18; TEMP 36.7; O2SAT 97
[2018-11-07] MEDS: Donepezil HCl 5 MG Tablet PO (20:36)
[2018-11-07] MEDS: Menthol/Lanolin/Calamine/Znox 113 GM Tube 1 APPLIC TOPICAL (20:36)
[2018-11-07] MEDS: Atorvastatin Calcium 20 MG Tablet PO (20:36)
[2018-11-08 02:30] VITALS: BP 153/60; PULSE 98; RESP 16; TEMP 37.1; O2SAT 94
[2018-11-08] MEDS: Piperacil/Tazobactam 3.375 GM/50 ML ML IV ×3 (05:37→21:54)
[2018-11-08 06:12] LABS: Anion Gap 7 (5-15); BUN 26 mg/dL (7-18); BUN/Creat Ratio 20.3 RATIO (10-20); Calcium,Total 8.2 mg/dL (8.5-10.1); Chloride 109 mmol/L (98-107); Creatinine, Serum 1.28 mg/dL (0.70-1.30); EST Glomerular Filtration Rate 58 mL/min (>60); Est Glom Filt Rate - Afr Amer 70 mL/min (>60); Estimated Creatinine Clearance 49.02 ml/min; Glucose 88 mg/dL (74-106); Potassium 4.2 mmol/L (3.5-5.1); Sodium Level 142 mmol/L (136-145)
[2018-11-08 06:14] LABS: Absolute Lymphocyte Count 1.58 X10^3/ul (0.83-4.51); Absolute Neutrophil Count 2.6 X10^3/uL (2.0-7.7); Basophil# 0.01 X10^3/uL; Basophil% 0.2 % (0-1); Eosinophil# 0.17 X10^3/uL; Eosinophils% 3.5 % (0-5); Hematocrit 31.8 % (40-54); Hemoglobin 10.1 g/dl (13.0-16.5); Lymphocyte # 1.58 X10^3/ul (4.0); Lymphocyte % 32.7 % (19-41); Mean Corp Hgb Conc 31.8 g/gl (32-36); Mean Corpuscular Hgb 27.7 pg (27.0-32.0); Mean Corpuscular Volume 87.4 fL (80-94); Mean Platelet Vol. 9.9 fl (6.2-12.0); Monocyte# 0.44 X10^3/uL; Monocyte% 9.1 % (0-10); Neutrophil # 2.63 X10^3/uL (2.7-7.7); Neutrophil % 54.5 % (47-70); Platelet Count 185 K/mm3 (150-450); RBC Distribution Width CV 15.9 % (11.6-14.6); RBC Distribution Width SD 49.1 fl (35.1-43.9); Red Blood Count 3.64 M/mm3 (4.6-6.2); White Blood Count 4.8 K/mm3 (4.4-11.0)
[2018-11-08 06:17] LABS: POSITIVE COUNT NO; POSITIVE DIFFERENTIAL NO; POSITIVE MORPHOLOGY NO
[2018-11-08] MEDS: Tamsulosin HCl 0.4 MG Capsule 0.8 MG PO (08:22)
[2018-11-08] MEDS: Ferrous Sulfate 325 MG Tablet PO (08:22)
[2018-11-08] MEDS: Heparin Injection (Vial) 5,000 UNIT/ML VIAL 5000 UNIT SC ×2 (08:23→21:54)
[2018-11-08] MEDS: Menthol/Lanolin/Calamine/Znox 113 GM Tube 1 APPLIC TOPICAL ×2 (08:24→19:44)
[2018-11-08 08:30] VITALS: BP 140/57; PULSE 87; RESP 16; TEMP 37.3; O2SAT 96
[2018-11-08 08:39] VITALS: O2SAT 94
--- NOTE | 2018-11-08 10:47 | DCINST_ITS ---
- Discharge Diagnoses Current Active Problems: Current Active and Chronic Problems HLD (hyperlipidemia) (Chronic) BPH (benign prostatic hyperplasia) (Chronic) Spastic paraplegia (Chronic) Neurogenic bladder (Chronic) History of DVT (deep vein thrombosis) (Chronic) Iron deficiency anemia (Chronic) Complicated UTI (urinary tract infection) (Acute) Encephalopathy acute (Acute) You will use the following diet at home:: No restrictions Your food should be the consistency of: Regular Your liquids should be the consistency of: Regular/Thin Weight Bearing Status: Weight bearing as tolerated Call your doctor if you observe: Fever of 101 or Higher, Inability to urinate Additional Instructions: to self catheterise patient at home twice daily like she has been doing. To follow up with Dr Gaming next week in his office Allergies/Adverse Reactions: Allergies cephalexin Allergy (Verified 11/06/18 13:36) Hives Sulfa (Sulfonamide Antibiotics) Allergy (Verified 11/06/18 13:36) Hives Medications to take at Discharge Acetaminophen [Tylenol] 650 mg PO Q4H PRN PRN 11/06/18 Ascorbic Acid [Vitamin C] 100 mg PO DAILY 11/06/18 Baclofen 20 mg PO TID PRN 11/06/18 Bisacodyl [Biscolax] 10 mg RC DAILY PRN 11/06/18 Donepezil HCl [Aricept] 5 mg PO QHS 11/06/18 Ferrous Sulfate 325 mg PO DAILY 11/06/18 Metoprolol Succinate [Toprol Xl] 25 mg PO DAILY 11/06/18 Multivitamin [Once Daily] 1 each PO DAILY 11/06/18 Polyethylene Glycol 3350 [Miralax] 17 gm PO DAILY 11/06/18 Probenecid 500 mg PO DAILY 11/06/18 Sennosides/Docusate Sodium [Senna-Docusate Sodium Tablet] 1 each PO DAILY 11/06/18 Simvastatin [Zocor] 40 mg PO QHS 11/06/18 Tamsulosin HCl [Flomax] 0.8 mg PO DAILY 11/06/18 Primary Care Physician: Nino Paul MD [Primary Care Provider] - Please follow up with your Primary Care Physician in: 1 week Test Results: Test results from this visit will be discussed in further detail at your follow- up appointment, if applicable. Please Follow Up With: Adrian Gaming MD When: 1 week Proposed Discharge Date: 11/08/18
--- NOTE | 2018-11-08 10:47 | PCM.DC.SUM ---
Discharge Date and Diagnosis - Problem List Patient Problems: Active and Suspected Problems Cardiac arrhythmia (Suspected) Complicated UTI (urinary tract infection) (Acute) Encephalopathy acute (Acute) Date of Admission: 11/06/18 - Primary Discharge Diagnosis Active and Suspected Problems Cardiac arrhythmia (Suspected) Complicated UTI (urinary tract infection) (Acute) Encephalopathy acute (Acute) - Secondary Discharge Diagnosis Chronic Problems HLD (hyperlipidemia) (Chronic) BPH (benign prostatic hyperplasia) (Chronic) Spastic paraplegia (Chronic) Neurogenic bladder (Chronic) History of DVT (deep vein thrombosis) (Chronic) Iron deficiency anemia (Chronic) Hospital Course and Treatment Summary of Care Provided: The patient is a 78 year old M [] Patient Problems: Active and Suspected Problems Cardiac arrhythmia (Suspected) Complicated UTI (urinary tract infection) (Acute) Encephalopathy acute (Acute) - Physical Exam Vital Signs Temp Pulse Resp BP Pulse Ox 99.1 F 87 16 140/57 H 94 11/08/18 08:30 11/08/18 08:30 11/08/18 08:30 11/08/18 08:30 11/08/18 08:39 Oxygen Delivery Method Room Air Weight: 171 lb 15.369 oz Body Mass Index (BMI) 24.0 Intake and Output for Last 24 Hours 11/06/18 11/07/18 11/08/18 23:59 23:59 23:59 Intake Total 946 / 946 1760 / 1760 2898 / 2898 Output Total 550 / 550 1600 / 1600 1550 / 1550 Balance 396 / 396 160 / 160 1348 / 1348 Microbiology Past 72 Hours 11/06/18 15:00 Urine Culture - Final Urine Catheter - [place] Pseudomonas spp Laboratory Tests Past 24 Hrs 11/08/18 11/08/18 05:30 05:30 WBC 4.8 RBC 3.64 L Hgb 10.1 L Hct 31.8 L MCV 87.4 MCH 27.7 MCHC 31.8 L RDW 15.9 H RDW Differential 49.1 H Plt Count 185 MPV 9.9 Immature Gran % (Auto) 0.000 Neut % (Auto) 54.5 Lymph % (Auto) 32.7 [place] % (Auto) 9.1 Eos % (Auto) 3.5 Baso % (Auto) 0.2 Absolute Neuts (auto) 2.6 Absolute Lymphs (auto) 1.58 Total Counted Not Reportable Sodium 142 Potassium 4.2 Chloride 109 H Carbon Dioxide 26.0 Anion Gap 7 BUN 26 H Creatinine 1.28 Estim Creat Clear Calc 49.02 Est GFR (MDRD) Af Amer 70 Est GFR (MDRD) Non-Af 58 L BUN/Creatinine Ratio 20.3 H Glucose 88 Calcium 8.2 L Weight Bearing Status: Weight bearing as tolerated Call your doctor if you observe: Fever of 101 or Higher, Inability to urinate Home Medications: Medications to take at Discharge Acetaminophen [Tylenol] 650 mg PO Q4H PRN PRN 11/06/18 Ascorbic Acid [Vitamin C] 100 mg PO DAILY 11/06/18 Baclofen 20 mg PO TID PRN 11/06/18 Bisacodyl [Biscolax] 10 mg RC DAILY PRN 11/06/18 Donepezil HCl [Aricept] 5 mg PO QHS 11/06/18 Ferrous Sulfate 325 mg PO DAILY 11/06/18 Metoprolol Succinate [Toprol Xl] 25 mg PO DAILY 11/06/18 Multivitamin [Once Daily] 1 each PO DAILY 11/06/18 Polyethylene Glycol 3350 [Miralax] 17 gm PO DAILY 11/06/18 Probenecid 500 mg PO DAILY 11/06/18 Sennosides/Docusate Sodium [Senna-Docusate Sodium Tablet] 1 each PO DAILY 11/06/18 Simvastatin [Zocor] 40 mg PO QHS 11/06/18 Tamsulosin HCl [Flomax] 0.8 mg PO DAILY 11/06/18 Primary Care Physician: Nino Paul MD [Primary Care Provider] - Please follow up with your Primary Care Physician in: 1 week Please Follow Up With: Adrian Gaming MD When: 1 week Medical Necessity - Tobacco Use Smoking Status: Never smoker Tobacco Use: Non-smoker
[2018-11-08 11:14] VITALS: BP 123/52; PULSE 85; RESP 16; TEMP 37.4; O2SAT 94
--- NOTE | 2018-11-08 11:59 | CASEMGMT ---
JOSÉ MIGUEL CHAMPION updated by nurse that is requesting patient go to SNF at discharge. Nursing and CM request PT/OT work with patient today to see how he is ambulating. Therapy seen patient and is requiring 2 assist with ambulation. requesting [facility] for SNF. JOSÉ MIGUEL CHAMPION called [facility] and they are out of network but will run benefits. JOSÉ MIGUEL CHAMPION updated and patient. JOSÉ MIGUEL CHAMPION updated hospitalist regarding discharge planning and need for SNF pending precert. JOSÉ MIGUEL CHAMPION updated [facility] Rowley.
--- NOTE | 2018-11-08 14:24 | PCM.PN.HOSP ---
Patient Problems: Active and Suspected Problems Cardiac arrhythmia (Suspected) Complicated UTI (urinary tract infection) (Acute) Encephalopathy acute (Acute) Subjective: Patient seen and examined. He had no complaints and felt very well and actually wanted to be discharged home. 12 point review of systems otherwise negative. Labs and vitals reviewed. Patient has been skilled to fdc and is awaiting placement. Vitals/I&O's: Vital Signs Temp Pulse Resp BP Pulse Ox 99.3 F H 85 16 123/52 H 94 11/08/18 11:14 11/08/18 11:14 11/08/18 11:14 11/08/18 11:14 11/08/18 11:14 Oxygen Delivery Method Room Air Weight: 171 lb 15.369 oz Body Mass Index (BMI) 24.0 Intake and Output for Last 24 Hours 11/06/18 11/07/18 11/08/18 23:59 23:59 23:59 Intake Total 946 / 946 1760 / 1760 3248 / 3248 Output Total 550 / 550 1600 / 1600 2550 / 2550 Balance 396 / 396 160 / 160 698 / 698 o/e: Vital Signs Height 5 ft 11 in Weight: 171 lb 15.369 oz Weight in Pounds 172.0 lbs Pulse Ox 94 Temperature 99.3 F Pulse Rate 85 Respiratory Rate 16 Blood Pressure [BP] 108/47 Blood Pressure 123/52 Blood Pressure Position [BP] Semi-Fowlers Blood Pressure Position Semi-Fowlers General: Alert, Cooperative, No apparent distress HEENT: Atraumatic, PERRLA, EOMI, Normocephalic Oral: Dry Mucosa Neck: Supple, No JVD, Negative Carotid Bruits Lungs: Clear to auscultation, Normal air movement, No rhonchi, No wheeze, No rales Cardiovascular: Regular rate, Regular Rhythm, Normal S1, Normal S2, No murmurs Abdomen: Bowel Sounds Present, Soft, Non Tender, Non-Distended, No Hepato-splenomegaly Extremities: No clubbing, No cyanosis, No edema, Capillary Refill Less than 3 Seconds Skin: No rashes, No breakdown Musculoskeletal: No Tenderness to Palpation of Joints or Extremities, Lymphatic: No Cervical, Supraclavicular, or Inguinal Adenopathy Neurological: Cranial nerves II-XII grossly intact, Neuro grossly intact Psych/Mental Status: Normal Affect, Appropriate Microbiology Past 72 Hours 11/06/18 15:00 Urine Catheter - [place] Urine Culture - Final Pseudomonas spp Laboratory Results 11/08/18 05:30: WBC 4.8, RBC 3.64 L, Hgb 10.1 L, Hct 31.8 L, MCV 87.4, MCH 27.7, MCHC 31.8 L, RDW 15.9 H, RDW Differential 49.1 H, Plt Count 185, MPV 9.9, Immature Gran % (Auto) 0.000, Neut % (Auto) 54.5, Lymph % (Auto) 32.7, [place] % (Auto) 9.1, Eos % (Auto) 3.5, Baso % (Auto) 0.2, Absolute Neuts (auto) 2.6, Absolute Lymphs (auto) 1.58, Total Counted Not Reportable 11/08/18 05:30: Sodium 142, Potassium 4.2, Chloride 109 H, Carbon Dioxide 26.0, Anion Gap 7, BUN 26 H, Creatinine 1.28, Estim Creat Clear Calc 49.02, Est GFR (MDRD) Af Amer 70, Est GFR (MDRD) Non-Af 58 L, BUN/Creatinine Ratio 20.3 H, Glucose 88, Calcium 8.2 L Current Medications Acetaminophen (Tylenol) 650 mg PO Q6H PRN PRN PRN Reason: Mild Pain (scale 0-3)/T>100.7 Last Admin: 11/07/18 05:03 Dose: 650 mg Al Hydroxide/Mg Hydroxide (Mylanta Ii) 30 ml PO Q6H PRN PRN PRN Reason: Gastric burning Atorvastatin Calcium (Lipitor) 20 mg PO QHS [facility] Last Admin: 11/07/18 20:36 Dose: 20 mg Baclofen (Lioresal) 20 mg PO TID PRN PRN PRN Reason: PAIN Last Admin: 11/06/18 22:26 Dose: 20 mg Bisacodyl (Dulcolax) 10 mg RECTAL DAILY PRN PRN Reason: Constipation Calamine/Phenol (Calmoseptine Ointment) 1 applic TOPICAL BID [facility]; Protocol Last Admin: 11/08/18 08:24 Dose: 1 applic Donepezil HCl (Aricept) 5 mg PO QHS [facility] Last Admin: 11/07/18 20:36 Dose: 5 mg Ferrous Sulfate (Ferrous Sulfate) 325 mg PO DAILYCM [facility] Last Admin: 11/08/18 08:22 Dose: 325 mg Heparin Sodium (Porcine) (Heparin Na) 5,000 unit SC Q12 [facility] Last Admin: 11/08/18 08:23 Dose: 5,000 unit Sodium Chloride () 1,000 mls @ 100 mls/hr IV .Q10H [facility] Last Admin: 11/07/18 22:38 Dose: 100 mls/hr Piperacillin Sod/Tazobactam Sod (Zosyn) 3.375 gm in 50 mls @ 12.5 mls/hr IV Q8 [facility] Last Admin: 11/08/18 05:37 Dose: 12.5 mls/hr Magnesium Hydroxide (Milk Of Magnesia) 30 ml PO DAILY PRN PRN PRN Reason: Constipation Nutritional Formula (Lactose Free) (Ensure Enlive) 120 ml PO 4X/DAY [facility] Last Admin: 11/08/18 10:00 Dose: 120 ml Ondansetron HCl (Zofran) 4 mg IV Q8H PRN PRN PRN Reason: NAUSEA Polyethylene Glycol (Miralax) 17 gm PO DAILY [facility] Last Admin: 11/08/18 08:23 Dose: Not Given Promethazine HCl (Phenergan) 12.5 mg IV Q6H PRN PRN PRN Reason: NAUSEA/VOMITING Psyllium Hydrophilic Mucilloid (Metamucil) 1 packet PO DAILY PRN PRN PRN Reason: CONSTIPATION Senna/Docusate Sodium (Senokot-S, Lata-Colace) 2 tablet PO BID PRN PRN Reason: Constipation Last Admin: 11/06/18 22:26 Dose: 2 tablet Sodium Chloride () 5 - 15 ml IV UD PRN PRN Reason: SALINE FLUSH Tamsulosin HCl (Flomax) 0.8 mg PO DAILY [facility] Last Admin: 11/08/18 08:22 Dose: 0.8 mg Medical Necessity - Tobacco Use Smoking Status: Never smoker Tobacco Use: Non-smoker Assessment/Plan All Active Problems History of Clostridium difficile infection (Resolved) Complicated UTI (urinary tract infection) (Acute) Encephalopathy acute (Acute) 1. Acute metabolic encephalopathy due to UTI resolved. Now alert though he still has baseline dementia on IV zosyn. urine cultured Pseudomonas continue therapy 2. UTI: as under 1. 3. Spastic tetraplegia with right hemiparesis fall precautions Baclofen pump in place PT/OT on board 4. Hyperlipidemia: on statin 5.? A. fib: Metoprolol held on admission due to low BP though said his blood pressure is always low. is rate and rhythm controlled will resume metoprolola s BP now in 140s and 150s sytolic 6. BPH: on flomax 7. History of neurogenic bladder as under 1. urology consulted as said he was supposed to have a procedure done by Dr Gaming; per urology, to have cystoscopy on outpatient basis to evaluate his prostate. 8. History of DVT: SCDs. No anticoagulation o/a of fall risk 9. Dementia: fall pecautions. On Aricept 10. Iron deficiency anemia: Hb is 10.2. Is a normocytic normochromic anemia. On iron supplements 11. Bilateral LE edema: ANTONIO wraps. DVT prophylaxis; SCDs Disposition: awaiting placement Code Visit Inpatient E&M: 44091 Subs Hosp L2
--- NOTE | 2018-11-08 14:33 | PN_ITS ---
Patient Problems: Active and Suspected Problems Cardiac arrhythmia (Suspected) Complicated UTI (urinary tract infection) (Acute) Encephalopathy acute (Acute) Subjective: Patient seen and examined. He had no complaints and felt very well and actually wanted to be discharged home. 12 point review of systems otherwise negative. Labs and vitals reviewed. Patient has been skilled to alf and is awaiting placement. Vitals/I&O's: Vital Signs Temp Pulse Resp BP Pulse Ox 99.3 F H 85 16 123/52 H 94 11/08/18 11:14 11/08/18 11:14 11/08/18 11:14 11/08/18 11:14 11/08/18 11:14 Oxygen Delivery Method Room Air Weight: 171 lb 15.369 oz Body Mass Index (BMI) 24.0 Intake and Output for Last 24 Hours 11/06/18 11/07/18 11/08/18 23:59 23:59 23:59 Intake Total 946 / 946 1760 / 1760 3248 / 3248 Output Total 550 / 550 1600 / 1600 2550 / 2550 Balance 396 / 396 160 / 160 698 / 698 o/e: Vital Signs Height 5 ft 11 in Weight: 171 lb 15.369 oz Weight in Pounds 172.0 lbs Pulse Ox 94 Temperature 99.3 F Pulse Rate 85 Respiratory Rate 16 Blood Pressure [BP] 108/47 Blood Pressure 123/52 Blood Pressure Position [BP] Semi-Fowlers Blood Pressure Position Semi-Fowlers General: Alert, Cooperative, No apparent distress HEENT: Atraumatic, PERRLA, EOMI, Normocephalic Oral: Dry Mucosa Neck: Supple, No JVD, Negative Carotid Bruits Lungs: Clear to auscultation, Normal air movement, No rhonchi, No wheeze, No rales Cardiovascular: Regular rate, Regular Rhythm, Normal S1, Normal S2, No murmurs Abdomen: Bowel Sounds Present, Soft, Non Tender, Non-Distended, No Hepato- splenomegaly Extremities: No clubbing, No cyanosis, No edema, Capillary Refill Less than 3 Seconds Skin: No rashes, No breakdown Musculoskeletal: No Tenderness to Palpation of Joints or Extremities, Lymphatic: No Cervical, Supraclavicular, or Inguinal Adenopathy Neurological: Cranial nerves II-XII grossly intact, Neuro grossly intact Psych/Mental Status: Normal Affect, Appropriate Microbiology Past 72 Hours 11/06/18 15:00 Urine Catheter - [place] Urine Culture - Final Pseudomonas spp Laboratory Results 11/08/18 05:30: WBC 4.8, RBC 3.64 L, Hgb 10.1 L, Hct 31.8 L, MCV 87.4, MCH 27.7, MCHC 31.8 L, RDW 15.9 H, RDW Differential 49.1 H, Plt Count 185, MPV 9.9, Immature Gran % (Auto) 0.000, Neut % (Auto) 54.5, Lymph % (Auto) 32.7, [place] % (Auto) 9.1, Eos % (Auto) 3.5, Baso % (Auto) 0.2, Absolute Neuts (auto) 2.6, Absolute Lymphs (auto) 1.58, Total Counted Not Reportable 11/08/18 05:30: Sodium 142, Potassium 4.2, Chloride 109 H, Carbon Dioxide 26.0, Anion Gap 7, BUN 26 H, Creatinine 1.28, Estim Creat Clear Calc 49.02, Est GFR (MDRD) Af Amer 70, Est GFR (MDRD) Non-Af 58 L, BUN/Creatinine Ratio 20.3 H, Glucose 88, Calcium 8.2 L Current Medications Acetaminophen (Tylenol) 650 mg PO Q6H PRN PRN PRN Reason: Mild Pain (scale 0-3)/T>100.7 Last Admin: 11/07/18 05:03 Dose: 650 mg Al Hydroxide/Mg Hydroxide (Mylanta Ii) 30 ml PO Q6H PRN PRN PRN Reason: Gastric burning Atorvastatin Calcium (Lipitor) 20 mg PO QHS [facility] Last Admin: 11/07/18 20:36 Dose: 20 mg Baclofen (Lioresal) 20 mg PO TID PRN PRN PRN Reason: PAIN Last Admin: 11/06/18 22:26 Dose: 20 mg Bisacodyl (Dulcolax) 10 mg RECTAL DAILY PRN PRN Reason: Constipation Calamine/Phenol (Calmoseptine Ointment) 1 applic TOPICAL BID [facility]; Protocol Last Admin: 11/08/18 08:24 Dose: 1 applic Donepezil HCl (Aricept) 5 mg PO QHS [facility] Last Admin: 11/07/18 20:36 Dose: 5 mg Ferrous Sulfate (Ferrous Sulfate) 325 mg PO DAILYCM [facility] Last Admin: 11/08/18 08:22 Dose: 325 mg Heparin Sodium (Porcine) (Heparin Na) 5,000 unit SC Q12 [facility] Last Admin: 11/08/18 08:23 Dose: 5,000 unit Sodium Chloride () 1,000 mls @ 100 mls/hr IV .Q10H [facility] Last Admin: 11/07/18 22:38 Dose: 100 mls/hr Piperacillin Sod/Tazobactam Sod (Zosyn) 3.375 gm in 50 mls @ 12.5 mls/hr IV Q8 [facility] Last Admin: 11/08/18 05:37 Dose: 12.5 mls/hr Magnesium Hydroxide (Milk Of Magnesia) 30 ml PO DAILY PRN PRN PRN Reason: Constipation Nutritional Formula (Lactose Free) (Ensure Enlive) 120 ml PO 4X/DAY [facility] Last Admin: 11/08/18 10:00 Dose: 120 ml Ondansetron HCl (Zofran) 4 mg IV Q8H PRN PRN PRN Reason: NAUSEA Polyethylene Glycol (Miralax) 17 gm PO DAILY [facility] Last Admin: 11/08/18 08:23 Dose: Not Given Promethazine HCl (Phenergan) 12.5 mg IV Q6H PRN PRN PRN Reason: NAUSEA/VOMITING Psyllium Hydrophilic Mucilloid (Metamucil) 1 packet PO DAILY PRN PRN PRN Reason: CONSTIPATION Senna/Docusate Sodium (Senokot-S, Lata-Colace) 2 tablet PO BID PRN PRN Reason: Constipation Last Admin: 11/06/18 22:26 Dose: 2 tablet Sodium Chloride () 5 - 15 ml IV UD PRN PRN Reason: SALINE FLUSH Tamsulosin HCl (Flomax) 0.8 mg PO DAILY [facility] Last Admin: 11/08/18 08:22 Dose: 0.8 mg Medical Necessity - Tobacco Use Smoking Status: Never smoker Tobacco Use: Non-smoker Assessment/Plan All Active Problems History of Clostridium difficile infection (Resolved) Complicated UTI (urinary tract infection) (Acute) Encephalopathy acute (Acute) 1. Acute metabolic encephalopathy due to UTI * resolved. Now alert though he still has baseline dementia * on IV zosyn. * urine cultured Pseudomonas * continue therapy * 2. UTI: as under 1. 3. Spastic tetraplegia with right hemiparesis * fall precautions * Baclofen pump in place * PT/OT on board * 4. Hyperlipidemia: on statin 5.? A. fib: * Metoprolol held on admission due to low BP though said his blood pressure is always low. * is rate and rhythm controlled * will resume metoprolola s BP now in 140s and 150s sytolic * 6. BPH: on flomax 7. History of neurogenic bladder * as under 1. * urology consulted as said he was supposed to have a procedure done by Dr Gaming; * per urology, to have cystoscopy on outpatient basis to evaluate his prostate. * 8. History of DVT: SCDs. No anticoagulation o/a of fall risk 9. Dementia: fall pecautions. On Aricept 10. Iron deficiency anemia: Hb is 10.2. Is a normocytic normochromic anemia. On iron supplements 11. Bilateral LE edema: ANTONIO wraps. DVT prophylaxis; SCDs Disposition: awaiting placement Code Visit Inpatient E&M: 02128 Subs Hosp L2
[2018-11-08 14:48] VITALS: BP 129/69; PULSE 69; RESP 16; TEMP 36.6; O2SAT 97
--- NOTE | 2018-11-08 15:08 | CASEMGMT ---
JOSÉ MIGUEL CHAMPION received call from Laureen at [facility]. Out of network benefits received and patient and updated. Patient and agreeable to out of network benefits and requesting referral be sent to [facility]. JOSÉ MIGUEL CHAMPION sent referral to [facility] and requested that precert be initiated. JOSÉ MIGUEL CHAMPION updated NERI Rowley regarding referral being sent to [facility] and request for precert.
--- NOTE | 2018-11-08 16:29 | CASEMGMT ---
Social Work SW updated that pt is agreeable to [facility]. Per RN JAYCEE Celis referral has been sent and pre-cert has been submitted. Plan: [facility] pending pre-cert Ena Rowley CUPOLA MAN, 1ST PRESSMAN
[2018-11-08] MEDS: Atorvastatin Calcium 20 MG Tablet PO (19:43)
[2018-11-08] MEDS: Donepezil HCl 5 MG Tablet PO (19:43)
[2018-11-08 19:49] VITALS: BP 119/54; PULSE 80; RESP 18; TEMP 37.1; O2SAT 96
[2018-11-09] VITALS (7 sets, daily range): BP systolic 119–148; BP diastolic 53–70; PULSE 65–76; RESP 16–18; TEMP 36.2–36.9; O2SAT 94–98
[2018-11-09] MEDS: Piperacil/Tazobactam 3.375 GM/50 ML ML IV ×3 (05:37→20:14)
[2018-11-09 06:22] LABS: Absolute Neutrophil Count 2.5 X10^3/uL (2.0-7.7); Basophil# 0.03 X10^3/uL; Basophil% 0.6 % (0-1); Eosinophil# 0.14 X10^3/uL; Eosinophils% 2.8 % (0-5); Hematocrit 32.8 % (40-54); Hemoglobin 10.6 g/dl (13.0-16.5); Lymphocyte % 34.6 % (19-41); Mean Corp Hgb Conc 32.3 g/gl (32-36); Mean Corpuscular Hgb 28.1 pg (27.0-32.0); Mean Platelet Vol. 9.8 fl (6.2-12.0); Monocyte% 10.2 % (0-10); Neutrophil # 2.54 X10^3/uL (2.7-7.7); Neutrophil % 51.6 % (47-70); Platelet Count 197 K/mm3 (150-450); RBC Distribution Width CV 15.6 % (11.6-14.6); RBC Distribution Width SD 48.4 fl (35.1-43.9); Red Blood Count 3.77 M/mm3 (4.6-6.2); White Blood Count 4.9 K/mm3 (4.4-11.0)
[2018-11-09 06:28] LABS: POSITIVE COUNT NO; POSITIVE DIFFERENTIAL NO; POSITIVE MORPHOLOGY NO
[2018-11-09 06:53] LABS: Anion Gap 7 (5-15); BUN 21 mg/dL (7-18); BUN/Creat Ratio 16.5 RATIO (10-20); Calcium,Total 8.6 mg/dL (8.5-10.1); Chloride 108 mmol/L (98-107); Creatinine, Serum 1.27 mg/dL (0.70-1.30); EST Glomerular Filtration Rate 58 mL/min (>60); Est Glom Filt Rate - Afr Amer 70 mL/min (>60); Estimated Creatinine Clearance 49.41 ml/min; Glucose 85 mg/dL (74-106); Potassium 4.3 mmol/L (3.5-5.1); Sodium Level 143 mmol/L (136-145)
[2018-11-09] MEDS: Tamsulosin HCl 0.4 MG Capsule 0.8 MG PO (08:57)
[2018-11-09] MEDS: Ferrous Sulfate 325 MG Tablet PO (08:57)
[2018-11-09] MEDS: Menthol/Lanolin/Calamine/Znox 113 GM Tube 1 APPLIC TOPICAL ×2 (08:57→20:19)
[2018-11-09] MEDS: Metoprolol(XL)Succ 25 MG Tablet PO (08:59)
[2018-11-09] MEDS: Heparin Injection (Vial) 5,000 UNIT/ML VIAL 5000 UNIT SC ×2 (09:03→20:15)
--- NOTE | 2018-11-09 12:00 | CASEMGMT ---
Social Work Note SW faxed updated clinicals to [facility]. Plan: [facility] pending pre-cert Ena Rowley SEAMAN, INSTRUCTOR NURSE
--- NOTE | 2018-11-09 15:15 | PCM.PN.HOSP ---
Patient Problems: Active and Suspected Problems Cardiac arrhythmia (Suspected) Complicated UTI (urinary tract infection) (Acute) Encephalopathy acute (Acute) Subjective: Patient seen and examined. He had a good night and has no complaints. He denies any fever, any chills, any palpitations or chest pain, any abdominal pain, any diarrhea or vomiting. 12 point review of systems otherwise negative. Labs and vitals reviewed. Patient is awaiting placement. Vitals/I&O's: Vital Signs Temp Pulse Resp BP Pulse Ox 97.6 F L 67 16 119/69 97 11/09/18 14:06 11/09/18 14:06 11/09/18 14:06 11/09/18 14:06 11/09/18 14:06 Oxygen Delivery Method Room Air Weight: 171 lb 15.369 oz Body Mass Index (BMI) 24.0 Intake and Output for Last 24 Hours 11/07/18 11/08/18 11/09/18 23:59 23:59 23:59 Intake Total 1760 / 1760 3848 / 3848 806 / 806 Output Total 1600 / 1600 3750 / 3750 1250 / 1250 Balance 160 / 160 98 / 98 -444 / -444 General: Alert, Cooperative, No apparent distress HEENT: Atraumatic, PERRLA, EOMI, Normocephalic Oral: Dry Mucosa Neck: Supple, No JVD, Negative Carotid Bruits Lungs: Clear to auscultation, Normal air movement, No rhonchi, No wheeze, No rales Cardiovascular: Regular rate, Regular Rhythm, Normal S1, Normal S2, No murmurs Abdomen: Bowel Sounds Present, Soft, Non Tender, Non-Distended, No Hepato-splenomegaly Extremities: No clubbing, No cyanosis, No edema, Capillary Refill Less than 3 Seconds Skin: No rashes, No breakdown Musculoskeletal: No Tenderness to Palpation of Joints or Extremities, Lymphatic: No Cervical, Supraclavicular, or Inguinal Adenopathy Neurological: Cranial nerves II-XII grossly intact, Neuro grossly intact Psych/Mental Status: Normal Affect, Appropriate Microbiology Past 72 Hours 11/06/18 15:00 Urine Catheter - [place] Urine Culture - Final Pseudomonas spp Laboratory Results 11/09/18 05:26: WBC 4.9, RBC 3.77 L, Hgb 10.6 L, Hct 32.8 L, MCV 87.0, MCH 28.1, MCHC 32.3, RDW 15.6 H, RDW Differential 48.4 H, Plt Count 197, MPV 9.8, Immature Gran % (Auto) 0.200, Neut % (Auto) 51.6, Lymph % (Auto) 34.6, [place] % (Auto) 10.2 H, Eos % (Auto) 2.8, Baso % (Auto) 0.6, Absolute Neuts (auto) 2.5, Absolute Lymphs (auto) 1.70, Total Counted Not Reportable 11/09/18 05:26: Sodium 143, Potassium 4.3, Chloride 108 H, Carbon Dioxide 28.0, Anion Gap 7, BUN 21 H, Creatinine 1.27, Estim Creat Clear Calc 49.41, Est GFR (MDRD) Af Amer 70, Est GFR (MDRD) Non-Af 58 L, BUN/Creatinine Ratio 16.5, Glucose 85, Calcium 8.6 Current Medications Acetaminophen (Tylenol) 650 mg PO Q6H PRN PRN PRN Reason: Mild Pain (scale 0-3)/T>100.7 Last Admin: 11/07/18 05:03 Dose: 650 mg Al Hydroxide/Mg Hydroxide (Mylanta Ii) 30 ml PO Q6H PRN PRN PRN Reason: Gastric burning Atorvastatin Calcium (Lipitor) 20 mg PO QHS [facility] Last Admin: 11/08/18 19:43 Dose: 20 mg Baclofen (Lioresal) 20 mg PO TID PRN PRN PRN Reason: PAIN Last Admin: 11/06/18 22:26 Dose: 20 mg Bisacodyl (Dulcolax) 10 mg RECTAL DAILY PRN PRN Reason: Constipation Calamine/Phenol (Calmoseptine Ointment) 1 applic TOPICAL BID [facility]; Protocol Last Admin: 11/09/18 08:57 Dose: 1 applic Donepezil HCl (Aricept) 5 mg PO QHS [facility] Last Admin: 11/08/18 19:43 Dose: 5 mg Ferrous Sulfate (Ferrous Sulfate) 325 mg PO DAILYCM [facility] Last Admin: 11/09/18 08:57 Dose: 325 mg Heparin Sodium (Porcine) (Heparin Na) 5,000 unit SC Q12 [facility] Last Admin: 11/09/18 09:03 Dose: 5,000 unit Piperacillin Sod/Tazobactam Sod (Zosyn) 3.375 gm in 50 mls @ 12.5 mls/hr IV Q8 [facility] Last Admin: 11/09/18 13:56 Dose: 12.5 mls/hr Magnesium Hydroxide (Milk Of Magnesia) 30 ml PO DAILY PRN PRN PRN Reason: Constipation Metoprolol Succinate (Toprol Xl (Beta Sherie)) 25 mg PO DAILY [facility] Last Admin: 11/09/18 08:59 Dose: 25 mg Nutritional Formula (Lactose Free) (Ensure Enlive) 120 ml PO 4X/DAY [facility] Last Admin: 11/09/18 13:52 Dose: 120 ml Ondansetron HCl (Zofran) 4 mg IV Q8H PRN PRN PRN Reason: NAUSEA Polyethylene Glycol (Miralax) 17 gm PO DAILY [facility] Last Admin: 11/09/18 08:54 Dose: Not Given Promethazine HCl (Phenergan) 12.5 mg IV Q6H PRN PRN PRN Reason: NAUSEA/VOMITING Psyllium Hydrophilic Mucilloid (Metamucil) 1 packet PO DAILY PRN PRN PRN Reason: CONSTIPATION Senna/Docusate Sodium (Senokot-S, Lata-Colace) 2 tablet PO BID PRN PRN Reason: Constipation Last Admin: 11/06/18 22:26 Dose: 2 tablet Sodium Chloride () 5 - 15 ml IV UD PRN PRN Reason: SALINE FLUSH Tamsulosin HCl (Flomax) 0.8 mg PO DAILY [facility] Last Admin: 11/09/18 08:57 Dose: 0.8 mg Medical Necessity - Tobacco Use Smoking Status: Never smoker Tobacco Use: Non-smoker Assessment/Plan All Active Problems History of Clostridium difficile infection (Resolved) Complicated UTI (urinary tract infection) (Acute) Encephalopathy acute (Acute) 1. Acute metabolic encephalopathy due to UTI resolved. Now alert though he still has baseline dementia on IV zosyn. urine cultured Pseudomonas continue therapy 2. UTI: as under 1. 3. Spastic tetraplegia with right hemiparesis fall precautions Baclofen pump in place PT/OT on board 4. Hyperlipidemia: on statin 5.? A. fib: Metoprolol held on admission due to low BP though said his blood pressure is always low. is rate and rhythm controlled metoprolol resumed. Will monitor 6. BPH: on flomax 7. History of neurogenic bladder as under 1. per urology, to have cystoscopy on outpatient basis to evaluate his prostate. 8. History of DVT: SCDs. No anticoagulation o/a of fall risk 9. Dementia: fall pecautions. On Aricept 10. Iron deficiency anemia: Hb is 10.6. On iron supplements 11. Bilateral LE edema: ANTONIO wraps. DVT prophylaxis; SCDs Disposition: awaiting placement Code Visit Inpatient E&M: 48391 Subs Hosp L2
--- NOTE | 2018-11-09 15:21 | PN_ITS ---
Patient Problems: Active and Suspected Problems Cardiac arrhythmia (Suspected) Complicated UTI (urinary tract infection) (Acute) Encephalopathy acute (Acute) Subjective: Patient seen and examined. He had a good night and has no complaints. He denies any fever, any chills, any palpitations or chest pain, any abdominal pain, any diarrhea or vomiting. 12 point review of systems otherwise negative. Labs and vitals reviewed. Patient is awaiting placement. Vitals/I&O's: Vital Signs Temp Pulse Resp BP Pulse Ox 97.6 F L 67 16 119/69 97 11/09/18 14:06 11/09/18 14:06 11/09/18 14:06 11/09/18 14:06 11/09/18 14:06 Oxygen Delivery Method Room Air Weight: 171 lb 15.369 oz Body Mass Index (BMI) 24.0 Intake and Output for Last 24 Hours 11/07/18 11/08/18 11/09/18 23:59 23:59 23:59 Intake Total 1760 / 1760 3848 / 3848 806 / 806 Output Total 1600 / 1600 3750 / 3750 1250 / 1250 Balance 160 / 160 98 / 98 -444 / -444 General: Alert, Cooperative, No apparent distress HEENT: Atraumatic, PERRLA, EOMI, Normocephalic Oral: Dry Mucosa Neck: Supple, No JVD, Negative Carotid Bruits Lungs: Clear to auscultation, Normal air movement, No rhonchi, No wheeze, No rales Cardiovascular: Regular rate, Regular Rhythm, Normal S1, Normal S2, No murmurs Abdomen: Bowel Sounds Present, Soft, Non Tender, Non-Distended, No Hepato- splenomegaly Extremities: No clubbing, No cyanosis, No edema, Capillary Refill Less than 3 Seconds Skin: No rashes, No breakdown Musculoskeletal: No Tenderness to Palpation of Joints or Extremities, Lymphatic: No Cervical, Supraclavicular, or Inguinal Adenopathy Neurological: Cranial nerves II-XII grossly intact, Neuro grossly intact Psych/Mental Status: Normal Affect, Appropriate Microbiology Past 72 Hours 11/06/18 15:00 Urine Catheter - [place] Urine Culture - Final Pseudomonas spp Laboratory Results 11/09/18 05:26: WBC 4.9, RBC 3.77 L, Hgb 10.6 L, Hct 32.8 L, MCV 87.0, MCH 28.1, MCHC 32.3, RDW 15.6 H, RDW Differential 48.4 H, Plt Count 197, MPV 9.8, Immature Gran % (Auto) 0.200, Neut % (Auto) 51.6, Lymph % (Auto) 34.6, [place] % (Auto) 10.2 H, Eos % (Auto) 2.8, Baso % (Auto) 0.6, Absolute Neuts (auto) 2.5, Absolute Lymphs (auto) 1.70, Total Counted Not Reportable 11/09/18 05:26: Sodium 143, Potassium 4.3, Chloride 108 H, Carbon Dioxide 28.0, Anion Gap 7, BUN 21 H, Creatinine 1.27, Estim Creat Clear Calc 49.41, Est GFR (MDRD) Af Amer 70, Est GFR (MDRD) Non-Af 58 L, BUN/Creatinine Ratio 16.5, Glucose 85, Calcium 8.6 Current Medications Acetaminophen (Tylenol) 650 mg PO Q6H PRN PRN PRN Reason: Mild Pain (scale 0-3)/T>100.7 Last Admin: 11/07/18 05:03 Dose: 650 mg Al Hydroxide/Mg Hydroxide (Mylanta Ii) 30 ml PO Q6H PRN PRN PRN Reason: Gastric burning Atorvastatin Calcium (Lipitor) 20 mg PO QHS [facility] Last Admin: 11/08/18 19:43 Dose: 20 mg Baclofen (Lioresal) 20 mg PO TID PRN PRN PRN Reason: PAIN Last Admin: 11/06/18 22:26 Dose: 20 mg Bisacodyl (Dulcolax) 10 mg RECTAL DAILY PRN PRN Reason: Constipation Calamine/Phenol (Calmoseptine Ointment) 1 applic TOPICAL BID [facility]; Protocol Last Admin: 11/09/18 08:57 Dose: 1 applic Donepezil HCl (Aricept) 5 mg PO QHS [facility] Last Admin: 11/08/18 19:43 Dose: 5 mg Ferrous Sulfate (Ferrous Sulfate) 325 mg PO DAILYCM [facility] Last Admin: 11/09/18 08:57 Dose: 325 mg Heparin Sodium (Porcine) (Heparin Na) 5,000 unit SC Q12 [facility] Last Admin: 11/09/18 09:03 Dose: 5,000 unit Piperacillin Sod/Tazobactam Sod (Zosyn) 3.375 gm in 50 mls @ 12.5 mls/hr IV Q8 [facility] Last Admin: 11/09/18 13:56 Dose: 12.5 mls/hr Magnesium Hydroxide (Milk Of Magnesia) 30 ml PO DAILY PRN PRN PRN Reason: Constipation Metoprolol Succinate (Toprol Xl (Beta Sherie)) 25 mg PO DAILY [facility] Last Admin: 11/09/18 08:59 Dose: 25 mg Nutritional Formula (Lactose Free) (Ensure Enlive) 120 ml PO 4X/DAY [facility] Last Admin: 11/09/18 13:52 Dose: 120 ml Ondansetron HCl (Zofran) 4 mg IV Q8H PRN PRN PRN Reason: NAUSEA Polyethylene Glycol (Miralax) 17 gm PO DAILY [facility] Last Admin: 11/09/18 08:54 Dose: Not Given Promethazine HCl (Phenergan) 12.5 mg IV Q6H PRN PRN PRN Reason: NAUSEA/VOMITING Psyllium Hydrophilic Mucilloid (Metamucil) 1 packet PO DAILY PRN PRN PRN Reason: CONSTIPATION Senna/Docusate Sodium (Senokot-S, Lata-Colace) 2 tablet PO BID PRN PRN Reason: Constipation Last Admin: 11/06/18 22:26 Dose: 2 tablet Sodium Chloride () 5 - 15 ml IV UD PRN PRN Reason: SALINE FLUSH Tamsulosin HCl (Flomax) 0.8 mg PO DAILY [facility] Last Admin: 11/09/18 08:57 Dose: 0.8 mg Medical Necessity - Tobacco Use Smoking Status: Never smoker Tobacco Use: Non-smoker Assessment/Plan All Active Problems History of Clostridium difficile infection (Resolved) Complicated UTI (urinary tract infection) (Acute) Encephalopathy acute (Acute) 1. Acute metabolic encephalopathy due to UTI * resolved. Now alert though he still has baseline dementia * on IV zosyn. * urine cultured Pseudomonas * continue therapy * 2. UTI: as under 1. 3. Spastic tetraplegia with right hemiparesis * fall precautions * Baclofen pump in place * PT/OT on board * 4. Hyperlipidemia: on statin 5.? A. fib: * Metoprolol held on admission due to low BP though said his blood pressure is always low. * is rate and rhythm controlled * metoprolol resumed. Will monitor * 6. BPH: on flomax 7. History of neurogenic bladder * as under 1. * per urology, to have cystoscopy on outpatient basis to evaluate his prostate. * 8. History of DVT: SCDs. No anticoagulation o/a of fall risk 9. Dementia: fall pecautions. On Aricept 10. Iron deficiency anemia: Hb is 10.6. On iron supplements 11. Bilateral LE edema: ANTONIO wraps. DVT prophylaxis; SCDs Disposition: awaiting placement Code Visit Inpatient E&M: 56643 Subs Hosp L2
--- NOTE | 2018-11-09 15:43 | CASEMGMT ---
Social Work Note NERI placed a call to [facility] spoke with Ailyn. NERI informed Ailyn that this worker is leaving for the day and to call [facility] if pre-cert is obtained. NERI provided number for [employer]. Green sheet on chart and transportation form on chart in the event pre-cert is obtained. HENS completed, placed on pt's chart. Plan: [facility] pending pre-cert Ena Rowley [employer]ANT, MR TEACHER
[2018-11-09] MEDS: Donepezil HCl 5 MG Tablet PO (20:15)
[2018-11-09] MEDS: 0.9% NaCl Peripheral Flush Adult/Peds IV (20:15)
[2018-11-09] MEDS: Atorvastatin Calcium 20 MG Tablet PO (20:15)
[2018-11-10 02:00] VITALS: BP 144/76; PULSE 88; RESP 16; TEMP 37.4; O2SAT 94
[2018-11-10] MEDS: Piperacil/Tazobactam 3.375 GM/50 ML ML IV ×2 (05:42→13:54)
[2018-11-10] MEDS: 0.9% NaCl Peripheral Flush Adult/Peds IV (05:43)
[2018-11-10 07:17] LABS: Absolute Lymphocyte Count 1.89 X10^3/ul (0.83-4.51); Absolute Neutrophil Count 2.2 X10^3/uL (2.0-7.7); Basophil# 0.02 X10^3/uL; Basophil% 0.4 % (0-1); Eosinophil# 0.17 X10^3/uL; Eosinophils% 3.6 % (0-5); Hematocrit 34.4 % (40-54); Hemoglobin 11.2 g/dl (13.0-16.5); Lymphocyte # 1.89 X10^3/ul (4.0); Lymphocyte % 39.5 % (19-41); Mean Corp Hgb Conc 32.6 g/gl (32-36); Mean Corpuscular Hgb 27.7 pg (27.0-32.0); Mean Corpuscular Volume 84.9 fL (80-94); Mean Platelet Vol. 9.1 fl (6.2-12.0); Monocyte# 0.51 X10^3/uL; Monocyte% 10.7 % (0-10); Neutrophil # 2.19 X10^3/uL (2.7-7.7); Neutrophil % 45.8 % (47-70); Platelet Count 187 K/mm3 (150-450); RBC Distribution Width CV 15.2 % (11.6-14.6); RBC Distribution Width SD 47.3 fl (35.1-43.9); Red Blood Count 4.05 M/mm3 (4.6-6.2); White Blood Count 4.8 K/mm3 (4.4-11.0)
[2018-11-10 07:20] LABS: POSITIVE COUNT NO; POSITIVE DIFFERENTIAL NO; POSITIVE MORPHOLOGY NO
[2018-11-10 07:43] LABS: Anion Gap 8 (5-15); BUN 23 mg/dL (7-18); BUN/Creat Ratio 19.7 RATIO (10-20); Calcium,Total 8.7 mg/dL (8.5-10.1); Chloride 105 mmol/L (98-107); Creatinine, Serum 1.17 mg/dL (0.70-1.30); EST Glomerular Filtration Rate 64 mL/min (>60); Est Glom Filt Rate - Afr Amer 77 mL/min (>60); Estimated Creatinine Clearance 53.63 ml/min; Glucose 82 mg/dL (74-106); Potassium 3.9 mmol/L (3.5-5.1); Sodium Level 140 mmol/L (136-145)
[2018-11-10 08:00] VITALS: BP 105/60; PULSE 86; RESP 18; TEMP 36.7; O2SAT 94
[2018-11-10] MEDS: Ferrous Sulfate 325 MG Tablet PO (10:46)
[2018-11-10] MEDS: Menthol/Lanolin/Calamine/Znox 113 GM Tube 1 APPLIC TOPICAL ×2 (10:46→20:13)
[2018-11-10] MEDS: Tamsulosin HCl 0.4 MG Capsule 0.8 MG PO (10:47)
[2018-11-10 10:48] VITALS: BP 105/60; PULSE 86
[2018-11-10] MEDS: Polyethylene Glycol 3350 17 GM PACKET PO (10:48)
[2018-11-10] MEDS: Metoprolol(XL)Succ 25 MG Tablet PO (10:48)
[2018-11-10] MEDS: Heparin Injection (Vial) 5,000 UNIT/ML VIAL 5000 UNIT SC ×2 (10:54→20:13)
--- NOTE | 2018-11-10 11:00 | PCM.PN.HOSP ---
Patient Problems: Active and Suspected Problems Cardiac arrhythmia (Suspected) Complicated UTI (urinary tract infection) (Acute) Encephalopathy acute (Acute) Subjective: Patient seen and examined. He had a good night and has no complaints. He denies any fever, any chills, any palpitations or chest pain, any abdominal pain, any diarrhea or vomiting. 12 point review of systems otherwise negative. Labs and vitals reviewed. Patient is awaiting placement. Vitals/I&O's: Vital Signs Temp Pulse Resp BP Pulse Ox 99.3 F H 88 16 144/76 H 94 11/10/18 02:00 11/10/18 02:00 11/10/18 02:00 11/10/18 02:00 11/10/18 02:00 Oxygen Delivery Method Room Air Weight: 171 lb 15.369 oz Body Mass Index (BMI) 24.0 Intake and Output for Last 24 Hours 11/08/18 11/09/18 11/10/18 23:59 23:59 23:59 Intake Total 3848 / 3848 1456 / 1456 519 / 519 Output Total 3750 / 3750 1250 / 1250 1650 / 1650 Balance 98 / 98 206 / 206 -1131 / -1131 General: Alert, Cooperative, No apparent distress HEENT: Atraumatic, PERRLA, EOMI, Normocephalic Oral: Dry Mucosa Neck: Supple, No JVD, Negative Carotid Bruits Lungs: Clear to auscultation, Normal air movement, No rhonchi, No wheeze, No rales Cardiovascular: Regular rate, Regular Rhythm, Normal S1, Normal S2, No murmurs Abdomen: Bowel Sounds Present, Soft, Non Tender, Non-Distended, No Hepato-splenomegaly Extremities: No clubbing, No cyanosis, No edema, Capillary Refill Less than 3 Seconds Skin: No rashes, No breakdown Musculoskeletal: No Tenderness to Palpation of Joints or Extremities, Lymphatic: No Cervical, Supraclavicular, or Inguinal Adenopathy Neurological: Cranial nerves II-XII grossly intact, Neuro grossly intact Psych/Mental Status: Normal Affect, Appropriate Microbiology Past 72 Hours 11/06/18 15:00 Urine Catheter - [place] Urine Culture - Final Pseudomonas spp Laboratory Results 11/10/18 06:39: WBC 4.8, RBC 4.05 L, Hgb 11.2 L, Hct 34.4 L, MCV 84.9, MCH 27.7, MCHC 32.6, RDW 15.2 H, RDW Differential 47.3 H, Plt Count 187, MPV 9.1, Immature Gran % (Auto) 0.000, Neut % (Auto) 45.8 L, Lymph % (Auto) 39.5, [place] % (Auto) 10.7 H, Eos % (Auto) 3.6, Baso % (Auto) 0.4, Absolute Neuts (auto) 2.2, Absolute Lymphs (auto) 1.89, Total Counted Not Reportable 11/10/18 06:39: Sodium 140, Potassium 3.9, Chloride 105, Carbon Dioxide 27.0, Anion Gap 8, BUN 23 H, Creatinine 1.17, Estim Creat Clear Calc 53.63, Est GFR (MDRD) Af Amer 77, Est GFR (MDRD) Non-Af 64, BUN/Creatinine Ratio 19.7, Glucose 82, Calcium 8.7 Current Medications Acetaminophen (Tylenol) 650 mg PO Q6H PRN PRN PRN Reason: Mild Pain (scale 0-3)/T>100.7 Last Admin: 11/07/18 05:03 Dose: 650 mg Al Hydroxide/Mg Hydroxide (Mylanta Ii) 30 ml PO Q6H PRN PRN PRN Reason: Gastric burning Atorvastatin Calcium (Lipitor) 20 mg PO QHS [facility] Last Admin: 11/09/18 20:15 Dose: 20 mg Baclofen (Lioresal) 20 mg PO TID PRN PRN PRN Reason: PAIN Last Admin: 11/06/18 22:26 Dose: 20 mg Bisacodyl (Dulcolax) 10 mg RECTAL DAILY PRN PRN Reason: Constipation Calamine/Phenol (Calmoseptine Ointment) 1 applic TOPICAL BID [facility]; Protocol Last Admin: 11/09/18 20:19 Dose: 1 applic Donepezil HCl (Aricept) 5 mg PO QHS [facility] Last Admin: 11/09/18 20:15 Dose: 5 mg Ferrous Sulfate (Ferrous Sulfate) 325 mg PO DAILYCM [facility] Last Admin: 11/09/18 08:57 Dose: 325 mg Heparin Sodium (Porcine) (Heparin Na) 5,000 unit SC Q12 [facility] Last Admin: 11/09/18 20:15 Dose: 5,000 unit Piperacillin Sod/Tazobactam Sod (Zosyn) 3.375 gm in 50 mls @ 12.5 mls/hr IV Q8 [facility] Last Admin: 11/10/18 05:42 Dose: 12.5 mls/hr Magnesium Hydroxide (Milk Of Magnesia) 30 ml PO DAILY PRN PRN PRN Reason: Constipation Metoprolol Succinate (Toprol Xl (Beta Sherie)) 25 mg PO DAILY [facility] Last Admin: 11/09/18 08:59 Dose: 25 mg Nutritional Formula (Lactose Free) (Ensure Enlive) 120 ml PO 4X/DAY [facility] Last Admin: 11/09/18 20:14 Dose: 120 ml Ondansetron HCl (Zofran) 4 mg IV Q8H PRN PRN PRN Reason: NAUSEA Polyethylene Glycol (Miralax) 17 gm PO DAILY [facility] Last Admin: 11/09/18 08:54 Dose: Not Given Promethazine HCl (Phenergan) 12.5 mg IV Q6H PRN PRN PRN Reason: NAUSEA/VOMITING Psyllium Hydrophilic Mucilloid (Metamucil) 1 packet PO DAILY PRN PRN PRN Reason: CONSTIPATION Senna/Docusate Sodium (Senokot-S, Lata-Colace) 2 tablet PO BID PRN PRN Reason: Constipation Last Admin: 11/06/18 22:26 Dose: 2 tablet Sodium Chloride () 5 - 15 ml IV UD PRN PRN Reason: SALINE FLUSH Last Admin: 11/10/18 05:43 Dose: 10 ml Tamsulosin HCl (Flomax) 0.8 mg PO DAILY [facility] Last Admin: 11/09/18 08:57 Dose: 0.8 mg Medical Necessity - Tobacco Use Smoking Status: Never smoker Tobacco Use: Non-smoker Assessment/Plan All Active Problems History of Clostridium difficile infection (Resolved) Complicated UTI (urinary tract infection) (Acute) Encephalopathy acute (Acute) 1. Acute metabolic encephalopathy due to UTI resolved. Now alert though he still has baseline dementia on IV zosyn- today is day5. To stop zosyn after today's dose urine cultured Pseudomonas continue therapy 2. UTI: as under 1. 3. Spastic tetraplegia with right hemiparesis fall precautions Baclofen pump in place PT/OT on board 4. Hyperlipidemia: on statin 5.? A. fib: Metoprolol held on admission due to low BP though said his blood pressure is always low. is rate and rhythm controlled metoprolol resumed. Will monitor 6. BPH: on flomax 7. History of neurogenic bladder as under 1. per urology, to have cystoscopy on outpatient basis to evaluate his prostate. 8. History of DVT: SCDs. No anticoagulation o/a of fall risk 9. Dementia: fall pecautions. On Aricept 10. Iron deficiency anemia: Hb is 11.2. On iron supplements 11. Bilateral LE edema: ANTONIO wraps. DVT prophylaxis; SCDs Disposition: awaiting placement Code Visit Inpatient E&M: 41081 Subs Hosp L2
--- NOTE | 2018-11-10 11:03 | PN_ITS ---
Patient Problems: Active and Suspected Problems Cardiac arrhythmia (Suspected) Complicated UTI (urinary tract infection) (Acute) Encephalopathy acute (Acute) Subjective: Patient seen and examined. He had a good night and has no complaints. He denies any fever, any chills, any palpitations or chest pain, any abdominal pain, any diarrhea or vomiting. 12 point review of systems otherwise negative. Labs and vitals reviewed. Patient is awaiting placement. Vitals/I&O's: Vital Signs Temp Pulse Resp BP Pulse Ox 99.3 F H 88 16 144/76 H 94 11/10/18 02:00 11/10/18 02:00 11/10/18 02:00 11/10/18 02:00 11/10/18 02:00 Oxygen Delivery Method Room Air Weight: 171 lb 15.369 oz Body Mass Index (BMI) 24.0 Intake and Output for Last 24 Hours 11/08/18 11/09/18 11/10/18 23:59 23:59 23:59 Intake Total 3848 / 3848 1456 / 1456 519 / 519 Output Total 3750 / 3750 1250 / 1250 1650 / 1650 Balance 98 / 98 206 / 206 -1131 / -1131 General: Alert, Cooperative, No apparent distress HEENT: Atraumatic, PERRLA, EOMI, Normocephalic Oral: Dry Mucosa Neck: Supple, No JVD, Negative Carotid Bruits Lungs: Clear to auscultation, Normal air movement, No rhonchi, No wheeze, No rales Cardiovascular: Regular rate, Regular Rhythm, Normal S1, Normal S2, No murmurs Abdomen: Bowel Sounds Present, Soft, Non Tender, Non-Distended, No Hepato- splenomegaly Extremities: No clubbing, No cyanosis, No edema, Capillary Refill Less than 3 Seconds Skin: No rashes, No breakdown Musculoskeletal: No Tenderness to Palpation of Joints or Extremities, Lymphatic: No Cervical, Supraclavicular, or Inguinal Adenopathy Neurological: Cranial nerves II-XII grossly intact, Neuro grossly intact Psych/Mental Status: Normal Affect, Appropriate Microbiology Past 72 Hours 11/06/18 15:00 Urine Catheter - [place] Urine Culture - Final Pseudomonas spp Laboratory Results 11/10/18 06:39: WBC 4.8, RBC 4.05 L, Hgb 11.2 L, Hct 34.4 L, MCV 84.9, MCH 27.7, MCHC 32.6, RDW 15.2 H, RDW Differential 47.3 H, Plt Count 187, MPV 9.1, Immature Gran % (Auto) 0.000, Neut % (Auto) 45.8 L, Lymph % (Auto) 39.5, [place] % (Auto) 10.7 H, Eos % (Auto) 3.6, Baso % (Auto) 0.4, Absolute Neuts (auto) 2.2, Absolute Lymphs (auto) 1.89, Total Counted Not Reportable 11/10/18 06:39: Sodium 140, Potassium 3.9, Chloride 105, Carbon Dioxide 27.0, Anion Gap 8, BUN 23 H, Creatinine 1.17, Estim Creat Clear Calc 53.63, Est GFR (MDRD) Af Amer 77, Est GFR (MDRD) Non-Af 64, BUN/Creatinine Ratio 19.7, Glucose 82, Calcium 8.7 Current Medications Acetaminophen (Tylenol) 650 mg PO Q6H PRN PRN PRN Reason: Mild Pain (scale 0-3)/T>100.7 Last Admin: 11/07/18 05:03 Dose: 650 mg Al Hydroxide/Mg Hydroxide (Mylanta Ii) 30 ml PO Q6H PRN PRN PRN Reason: Gastric burning Atorvastatin Calcium (Lipitor) 20 mg PO QHS [facility] Last Admin: 11/09/18 20:15 Dose: 20 mg Baclofen (Lioresal) 20 mg PO TID PRN PRN PRN Reason: PAIN Last Admin: 11/06/18 22:26 Dose: 20 mg Bisacodyl (Dulcolax) 10 mg RECTAL DAILY PRN PRN Reason: Constipation Calamine/Phenol (Calmoseptine Ointment) 1 applic TOPICAL BID [facility]; Protocol Last Admin: 11/09/18 20:19 Dose: 1 applic Donepezil HCl (Aricept) 5 mg PO QHS [facility] Last Admin: 11/09/18 20:15 Dose: 5 mg Ferrous Sulfate (Ferrous Sulfate) 325 mg PO DAILYCM [facility] Last Admin: 11/09/18 08:57 Dose: 325 mg Heparin Sodium (Porcine) (Heparin Na) 5,000 unit SC Q12 [facility] Last Admin: 11/09/18 20:15 Dose: 5,000 unit Piperacillin Sod/Tazobactam Sod (Zosyn) 3.375 gm in 50 mls @ 12.5 mls/hr IV Q8 [facility] Last Admin: 11/10/18 05:42 Dose: 12.5 mls/hr Magnesium Hydroxide (Milk Of Magnesia) 30 ml PO DAILY PRN PRN PRN Reason: Constipation Metoprolol Succinate (Toprol Xl (Beta Sherie)) 25 mg PO DAILY [facility] Last Admin: 11/09/18 08:59 Dose: 25 mg Nutritional Formula (Lactose Free) (Ensure Enlive) 120 ml PO 4X/DAY [facility] Last Admin: 11/09/18 20:14 Dose: 120 ml Ondansetron HCl (Zofran) 4 mg IV Q8H PRN PRN PRN Reason: NAUSEA Polyethylene Glycol (Miralax) 17 gm PO DAILY [facility] Last Admin: 11/09/18 08:54 Dose: Not Given Promethazine HCl (Phenergan) 12.5 mg IV Q6H PRN PRN PRN Reason: NAUSEA/VOMITING Psyllium Hydrophilic Mucilloid (Metamucil) 1 packet PO DAILY PRN PRN PRN Reason: CONSTIPATION Senna/Docusate Sodium (Senokot-S, Lata-Colace) 2 tablet PO BID PRN PRN Reason: Constipation Last Admin: 11/06/18 22:26 Dose: 2 tablet Sodium Chloride () 5 - 15 ml IV UD PRN PRN Reason: SALINE FLUSH Last Admin: 11/10/18 05:43 Dose: 10 ml Tamsulosin HCl (Flomax) 0.8 mg PO DAILY [facility] Last Admin: 11/09/18 08:57 Dose: 0.8 mg Medical Necessity - Tobacco Use Smoking Status: Never smoker Tobacco Use: Non-smoker Assessment/Plan All Active Problems History of Clostridium difficile infection (Resolved) Complicated UTI (urinary tract infection) (Acute) Encephalopathy acute (Acute) 1. Acute metabolic encephalopathy due to UTI * resolved. Now alert though he still has baseline dementia * on IV zosyn- today is day5. To stop zosyn after today's dose * urine cultured Pseudomonas * continue therapy * 2. UTI: as under 1. 3. Spastic tetraplegia with right hemiparesis * fall precautions * Baclofen pump in place * PT/OT on board * 4. Hyperlipidemia: on statin 5.? A. fib: * Metoprolol held on admission due to low BP though said his blood pressure is always low. * is rate and rhythm controlled * metoprolol resumed. Will monitor * 6. BPH: on flomax 7. History of neurogenic bladder * as under 1. * per urology, to have cystoscopy on outpatient basis to evaluate his prostate. * 8. History of DVT: SCDs. No anticoagulation o/a of fall risk 9. Dementia: fall pecautions. On Aricept 10. Iron deficiency anemia: Hb is 11.2. On iron supplements 11. Bilateral LE edema: ANTONIO wraps. DVT prophylaxis; SCDs Disposition: awaiting placement Code Visit Inpatient E&M: 33839 Subs Hosp L2
[2018-11-10 17:28] VITALS: BP 111/65; PULSE 63; RESP 18; TEMP 36.7; O2SAT 95
[2018-11-10] MEDS: Atorvastatin Calcium 20 MG Tablet PO (20:13)
[2018-11-10] MEDS: Donepezil HCl 5 MG Tablet PO (20:13)
[2018-11-10 20:15] VITALS: BP 117/60; PULSE 72; RESP 16; TEMP 37.1; O2SAT 96
[2018-11-11 03:00] VITALS: BP 152/85; PULSE 85; RESP 16; TEMP 37.2; O2SAT 97
[2018-11-11] MEDS: Ferrous Sulfate 325 MG Tablet PO (08:34)
[2018-11-11 08:40] VITALS: BP 128/70; PULSE 90; RESP 16; TEMP 36.8; O2SAT 97
--- NOTE | 2018-11-11 09:36 | PCM.PN.HOSP ---
Patient Problems: Active and Suspected Problems Cardiac arrhythmia (Suspected) Complicated UTI (urinary tract infection) (Acute) Encephalopathy acute (Acute) Subjective: Patient seen and examined. He complains of pain and redness and discharge from his right eye. He denies any fever, any chills, any palpitations or chest pain, any abdominal pain, any diarrhea or vomiting. 12 point review of systems otherwise negative. Labs and vitals reviewed. Patient is awaiting placement. Vitals/I&O's: Vital Signs Temp Pulse Resp BP Pulse Ox 98.3 F 90 16 128/70 H 97 11/11/18 08:40 11/11/18 08:40 11/11/18 08:40 11/11/18 08:40 11/11/18 08:40 Oxygen Delivery Method Room Air Weight: 171 lb 15.369 oz Body Mass Index (BMI) 24.0 Intake and Output for Last 24 Hours 11/09/18 11/10/18 11/11/18 23:59 23:59 23:59 Intake Total 1456 / 1456 1334 / 1334 200 / 200 Output Total 1250 / 1250 2750 / 2750 1000 / 1000 Balance 206 / 206 -1416 / -1416 -800 / -800 General: Alert, Oriented x3, Cooperative, No apparent distress HEENT: Atraumatic, PERRLA, EOMI, - - mild conjuctival erythema of the right eye Oral: Moist Mucosa Neck: Supple, No JVD, Negative Carotid Bruits Lungs: Clear to auscultation, Normal air movement, No rhonchi, No wheeze, No rales Cardiovascular: Regular rate, Regular Rhythm, Normal S1, Normal S2, No murmurs Abdomen: Bowel Sounds Present, Soft, Non Tender, Non-Distended, No Hepato-splenomegaly Extremities: No clubbing, No cyanosis, No edema, Capillary Refill Less than 3 Seconds Skin: No rashes, No breakdown Musculoskeletal: No Tenderness to Palpation of Joints or Extremities Lymphatic: No Cervical, Supraclavicular, or Inguinal Adenopathy Neurological: Cranial nerves II-XII grossly intact, Neuro grossly intact Psych/Mental Status: Normal Affect, Appropriate Microbiology Past 72 Hours 11/06/18 15:00 Urine Catheter - [place] Urine Culture - Final Pseudomonas spp Current Medications Acetaminophen (Tylenol) 650 mg PO Q6H PRN PRN PRN Reason: Mild Pain (scale 0-3)/T>100.7 Last Admin: 11/07/18 05:03 Dose: 650 mg Al Hydroxide/Mg Hydroxide (Mylanta Ii) 30 ml PO Q6H PRN PRN PRN Reason: Gastric burning Atorvastatin Calcium (Lipitor) 20 mg PO QHS [facility] Last Admin: 11/10/18 20:13 Dose: 20 mg Baclofen (Lioresal) 20 mg PO TID PRN PRN PRN Reason: PAIN Last Admin: 11/06/18 22:26 Dose: 20 mg Bisacodyl (Dulcolax) 10 mg RECTAL DAILY PRN PRN Reason: Constipation Calamine/Phenol (Calmoseptine Ointment) 1 applic TOPICAL BID [facility]; Protocol Last Admin: 11/10/18 20:13 Dose: 1 applic Donepezil HCl (Aricept) 5 mg PO QHS [facility] Last Admin: 11/10/18 20:13 Dose: 5 mg [facility]ous Sulfate ([facility] Sulfate) [facility] Last Admin: 11/11/18 08:34 Dose: 325 mg Heparin Sodium (Porcine) (Heparin Na) 5,000 unit SC Q12 [facility] Last Admin: 11/10/18 20:13 Dose: 5,000 unit Magnesium Hydroxide (Milk Of Magnesia) 30 ml PO DAILY PRN PRN PRN Reason: Constipation Metoprolol Succinate (Toprol Xl (Beta Sherie)) 25 mg PO DAILY [facility] Last Admin: 11/10/18 10:48 Dose: 25 mg Nutritional Formula (Lactose Free) (Ensure Enlive) 120 ml PO 4X/DAY [facility] Last Admin: 11/10/18 20:13 Dose: 120 ml Ondansetron HCl (Zofran) 4 mg IV Q8H PRN PRN PRN Reason: NAUSEA Polyethylene Glycol (Miralax) 17 gm PO DAILY [facility] Last Admin: 11/10/18 10:48 Dose: 17 gm Promethazine HCl (Phenergan) 12.5 mg IV Q6H PRN PRN PRN Reason: NAUSEA/VOMITING Psyllium Hydrophilic Mucilloid (Metamucil) 1 packet PO DAILY PRN PRN PRN Reason: CONSTIPATION Senna/Docusate Sodium (Senokot-S, Lata-Colace) 2 tablet PO BID PRN PRN Reason: Constipation Last Admin: 01/01/19 22:26 Dose: 2 tablet Sodium Chloride () 5 - 15 ml IV UD PRN PRN Reason: SALINE FLUSH Last Admin: 11/10/18 05:43 Dose: 10 ml Tamsulosin HCl (Flomax) 0.8 mg PO DAILY [facility] Last Admin: 11/10/18 10:47 Dose: 0.8 mg Medical Necessity - Tobacco Use Smoking Status: Never smoker Tobacco Use: Non-smoker Assessment/Plan All Active Problems History of Clostridium difficile infection (Resolved) Complicated UTI (urinary tract infection) (Acute) Encephalopathy acute (Acute) 1. Acute metabolic encephalopathy due to UTI resolved. Now alert though he still has baseline dementia completed 5 days of IV zosyn. urine cultured pseudomonas. will continue to monitor 2. UTI: as under 1. 3.Conjuctivitis of the right eye has redness and discharge of right eye will give cipro eye drops 4. Spastic tetraplegia with right hemiparesis fall precautions Baclofen pump in place PT/OT on board 5. Hyperlipidemia: on statin 6.A. fib: is rate and rhythm controlled metoprolol resumed. Will monitor 7. BPH: on flomax 8. History of neurogenic bladder as under 1. per urology, to have cystoscopy on outpatient basis to evaluate his prostate. 9. History of DVT: SCDs. No anticoagulation o/a of fall risk 10. Dementia: fall pecautions. On Aricept 11. Iron deficiency anemia: Hb is 11.2. On iron supplements 12. Bilateral LE edema: ANTONIO wraps. DVT prophylaxis; SCDs Disposition: awaiting placement Code Visit Inpatient E&M: 17253 Subs Hosp L2
--- NOTE | 2018-11-11 09:47 | PN_ITS ---
Patient Problems: Active and Suspected Problems Cardiac arrhythmia (Suspected) Complicated UTI (urinary tract infection) (Acute) Encephalopathy acute (Acute) Subjective: Patient seen and examined. He complains of pain and redness and discharge from his right eye. He denies any fever, any chills, any palpitations or chest pain, any abdominal pain, any diarrhea or vomiting. 12 point review of systems otherwise negative. Labs and vitals reviewed. Patient is awaiting placement. Vitals/I&O's: Vital Signs Temp Pulse Resp BP Pulse Ox 98.3 F 90 16 128/70 H 97 11/11/18 08:40 11/11/18 08:40 11/11/18 08:40 11/11/18 08:40 11/11/18 08:40 Oxygen Delivery Method Room Air Weight: 171 lb 15.369 oz Body Mass Index (BMI) 24.0 Intake and Output for Last 24 Hours 11/09/18 11/10/18 11/11/18 23:59 23:59 23:59 Intake Total 1456 / 1456 1334 / 1334 200 / 200 Output Total 1250 / 1250 2750 / 2750 1000 / 1000 Balance 206 / 206 -1416 / -1416 -800 / -800 General: Alert, Oriented x3, Cooperative, No apparent distress HEENT: Atraumatic, PERRLA, EOMI, - - mild conjuctival erythema of the right eye Oral: Moist Mucosa Neck: Supple, No JVD, Negative Carotid Bruits Lungs: Clear to auscultation, Normal air movement, No rhonchi, No wheeze, No rales Cardiovascular: Regular rate, Regular Rhythm, Normal S1, Normal S2, No murmurs Abdomen: Bowel Sounds Present, Soft, Non Tender, Non-Distended, No Hepato- splenomegaly Extremities: No clubbing, No cyanosis, No edema, Capillary Refill Less than 3 Seconds Skin: No rashes, No breakdown Musculoskeletal: No Tenderness to Palpation of Joints or Extremities Lymphatic: No Cervical, Supraclavicular, or Inguinal Adenopathy Neurological: Cranial nerves II-XII grossly intact, Neuro grossly intact Psych/Mental Status: Normal Affect, Appropriate Microbiology Past 72 Hours 11/06/18 15:00 Urine Catheter - Holloway Urine Culture - Final Pseudomonas spp Current Medications Acetaminophen (Tylenol) 650 mg PO Q6H PRN PRN PRN Reason: Mild Pain (scale 0-3)/T>100.7 Last Admin: 11/07/18 05:03 Dose: 650 mg Al Hydroxide/Mg Hydroxide (Mylanta Ii) 30 ml PO Q6H PRN PRN PRN Reason: Gastric burning Atorvastatin Calcium (Lipitor) 20 mg PO QHS [facility] Last Admin: 11/10/18 20:13 Dose: 20 mg Baclofen (Lioresal) 20 mg PO TID PRN PRN PRN Reason: PAIN Last Admin: 11/06/18 22:26 Dose: 20 mg Bisacodyl (Dulcolax) 10 mg RECTAL DAILY PRN PRN Reason: Constipation Calamine/Phenol (Calmoseptine Ointment) 1 applic TOPICAL BID [facility]; Protocol Last Admin: 11/10/18 20:13 Dose: 1 applic Donepezil HCl (Aricept) 5 mg PO QHS [facility] Last Admin: 11/10/18 20:13 Dose: 5 mg Ferrous Sulfate (F[facility]ous Sulfate) [facility] Last Admin: 11/11/18 08:34 Dose: 325 mg Heparin Sodium (Porcine) (Heparin Na) 5,000 unit SC Q12 [facility] Last Admin: 11/10/18 20:13 Dose: 5,000 unit Magnesium Hydroxide (Milk Of Magnesia) 30 ml PO DAILY PRN PRN PRN Reason: Constipation Metoprolol Succinate (Toprol Xl (Beta Sherie)) 25 mg PO DAILY [facility] Last Admin: 11/10/18 10:48 Dose: 25 mg Nutritional Formula (Lactose Free) (Ensure Enlive) 120 ml PO 4X/DAY [facility] Last Admin: 11/10/18 20:13 Dose: 120 ml Ondansetron HCl (Zofran) 4 mg IV Q8H PRN PRN PRN Reason: NAUSEA Polyethylene Glycol (Miralax) 17 gm PO DAILY [facility] Last Admin: 11/10/18 10:48 Dose: 17 gm Promethazine HCl (Phenergan) 12.5 mg IV Q6H PRN PRN PRN Reason: NAUSEA/VOMITING Psyllium Hydrophilic Mucilloid (Metamucil) 1 packet PO DAILY PRN PRN PRN Reason: CONSTIPATION Senna/Docusate Sodium (Senokot-S, Lata-Colace) 2 tablet PO BID PRN PRN Reason: Constipation Last Admin: 01/01/19 22:26 Dose: 2 tablet Sodium Chloride () 5 - 15 ml IV UD PRN PRN Reason: SALINE FLUSH Last Admin: 11/10/18 05:43 Dose: 10 ml Tamsulosin HCl (Flomax) 0.8 mg PO DAILY [facility] Last Admin: 11/10/18 10:47 Dose: 0.8 mg Medical Necessity - Tobacco Use Smoking Status: Never smoker Tobacco Use: Non-smoker Assessment/Plan All Active Problems History of Clostridium difficile infection (Resolved) Complicated UTI (urinary tract infection) (Acute) Encephalopathy acute (Acute) 1. Acute metabolic encephalopathy due to UTI * resolved. Now alert though he still has baseline dementia * completed 5 days of IV zosyn. * urine cultured pseudomonas. * will continue to monitor * 2. UTI: as under 1. 3.Conjuctivitis of the right eye * has redness and discharge of right eye * will give cipro eye drops * 4. Spastic tetraplegia with right hemiparesis * fall precautions * Baclofen pump in place * PT/OT on board * 5. Hyperlipidemia: on statin 6.A. fib: * is rate and rhythm controlled * metoprolol resumed. Will monitor * 7. BPH: on flomax 8. History of neurogenic bladder * as under 1. * per urology, to have cystoscopy on outpatient basis to evaluate his prostate. * 9. History of DVT: SCDs. No anticoagulation o/a of fall risk 10. Dementia: fall pecautions. On Aricept 11. Iron deficiency anemia: Hb is 11.2. On iron supplements 12. Bilateral LE edema: ANTONIO wraps. DVT prophylaxis; SCDs Disposition: awaiting placement Code Visit Inpatient E&M: 68785 [facility] Hosp L2
[2018-11-11] MEDS: Menthol/Lanolin/Calamine/Znox 113 GM Tube 1 APPLIC TOPICAL ×2 (10:49→23:03)
[2018-11-11] MEDS: Ciprofloxacin 0.3% 2.5ml Bottle 2 DRP RIGHT EYE ×4 (10:50→23:03)
[2018-11-11 10:51] VITALS: BP 128/70; PULSE 90
[2018-11-11] MEDS: Tamsulosin HCl 0.4 MG Capsule 0.8 MG PO (10:51)
[2018-11-11] MEDS: Heparin Injection (Vial) 5,000 UNIT/ML VIAL 5000 UNIT SC ×2 (10:51→23:04)
[2018-11-11] MEDS: Polyethylene Glycol 3350 17 GM PACKET PO (10:51)
[2018-11-11] MEDS: Metoprolol(XL)Succ 25 MG Tablet PO (10:51)
[2018-11-11 14:52] VITALS: BP 113/55; PULSE 67; RESP 18; TEMP 36.8; O2SAT 98
[2018-11-11 22:34] VITALS: BP 131/64; PULSE 88; RESP 18; TEMP 36.9; O2SAT 95
[2018-11-11] MEDS: Donepezil HCl 5 MG Tablet PO (23:03)
[2018-11-11] MEDS: Atorvastatin Calcium 20 MG Tablet PO (23:04)
[2018-11-12] MEDS: Ciprofloxacin 0.3% 2.5ml Bottle 2 DRP RIGHT EYE ×4 (03:01→14:35)
[2018-11-12 03:04] VITALS: BP 134/59; PULSE 67; RESP 16; TEMP 36.8; O2SAT 95
[2018-11-12 09:04] VITALS: BP 109/57; PULSE 83; RESP 18; TEMP 36.9; O2SAT 95
[2018-11-12] MEDS: Ferrous Sulfate 325 MG Tablet PO (09:17)
[2018-11-12] MEDS: Tamsulosin HCl 0.4 MG Capsule 0.8 MG PO (09:18)
[2018-11-12 09:19] VITALS: BP 109/57; PULSE 83
[2018-11-12] MEDS: Polyethylene Glycol 3350 17 GM PACKET PO (09:19)
[2018-11-12] MEDS: Metoprolol(XL)Succ 25 MG Tablet PO (09:19)
[2018-11-12] MEDS: Heparin Injection (Vial) 5,000 UNIT/ML VIAL 5000 UNIT SC (09:19)
--- NOTE | 2018-11-12 09:23 | CASEMGMT ---
Addendum entered by Ena Rowley 11/12/18 15:03: NERI spoke with Ailyn at [facility]. Per Ailyn pt's insurance is requesting stop date for Zosyn. Per progress notes, pt's Zosyn was stopped on 11/10/2018. Ailyn states she read this in pt's notes and she updated pt's insurance. Original Note: Social Work Note NERI faxed updated clinicals to [facility]. Plans: [facility] pending pre-cert Ena Rowley HEALTH ANALYTICS CONSULTANT, OVERHEAD LINE WORKER
[2018-11-12 14:33] VITALS: BP 108/62; PULSE 77; RESP 18; TEMP 36.7; O2SAT 97
--- NOTE | 2018-11-12 15:49 | PCM.PN.HOSP ---
Patient Problems: Active and Suspected Problems Cardiac arrhythmia (Suspected) Complicated UTI (urinary tract infection) (Acute) Encephalopathy acute (Acute) Subjective: Patient seen and examined. He has no complaints. Redness and discharge from his right eye have resolved. 12 point review of systems otherwise negative. He still awaiting placement. Vitals/I&O's: Vital Signs Temp Pulse Resp BP Pulse Ox 98.1 F 77 18 108/62 97 11/12/18 14:33 11/12/18 14:33 11/12/18 14:33 11/12/18 14:33 11/12/18 14:33 Oxygen Delivery Method Room Air Weight: 171 lb 15.369 oz Body Mass Index (BMI) 24.0 Intake and Output for Last 24 Hours 11/10/18 11/11/18 11/12/18 23:59 23:59 23:59 Intake Total 1334 / 1334 1150 / 1150 880 / 880 Output Total 2750 / 2750 2700 / 2700 2100 / 2100 Balance -1416 / -1416 -1550 / -1550 -1220 / -1220 General: Alert, Oriented x3, Cooperative, No apparent distress HEENT: Atraumatic, PERRLA, EOMI, - - erythema of right conjuctiva has resolved. Oral: Moist Mucosa Neck: Supple, No JVD, Negative Carotid Bruits Lungs: Clear to auscultation, Normal air movement, No rhonchi, No wheeze, No rales Cardiovascular: Regular rate, Regular Rhythm, Normal S1, Normal S2, No murmurs Abdomen: Bowel Sounds Present, Soft, Non Tender, Non-Distended, No Hepato-splenomegaly Extremities: No clubbing, No cyanosis, No edema, Capillary Refill Less than 3 Seconds Skin: No rashes, No breakdown Musculoskeletal: No Tenderness to Palpation of Joints or Extremities Lymphatic: No Cervical, Supraclavicular, or Inguinal Adenopathy Neurological: Cranial nerves II-XII grossly intact, Neuro grossly intact Psych/Mental Status: Normal Affect, Appropriate Current Medications Acetaminophen (Tylenol) 650 mg PO Q6H PRN PRN PRN Reason: Mild Pain (scale 0-3)/T>100.7 Last Admin: 11/07/18 05:03 Dose: 650 mg Al Hydroxide/Mg Hydroxide (Mylanta Ii) 30 ml PO Q6H PRN PRN PRN Reason: Gastric burning Atorvastatin Calcium (Lipitor) 20 mg PO QHS [facility] Last Admin: 11/11/18 23:04 Dose: 20 mg Baclofen (Lioresal) 20 mg PO TID PRN PRN PRN Reason: PAIN Last Admin: 11/06/18 22:26 Dose: 20 mg Bisacodyl (Dulcolax) 10 mg RECTAL DAILY PRN PRN Reason: Constipation Calamine/Phenol (Calmoseptine Ointment) 1 applic TOPICAL BID [facility]; Protocol Last Admin: 11/12/18 09:19 Dose: Not Given Ciprofloxacin HCl (Ciloxan) 2 drop RIGHT EYE Q4 [facility] Last Admin: 11/12/18 14:35 Dose: 2 drop Donepezil HCl (Aricept) 5 mg PO QHS [facility] Last Admin: 11/11/18 23:03 Dose: 5 mg Ferrous Sulfate ([facility]ous Sulfate) [facility] Last Admin: 11/12/18 09:17 Dose: 325 mg Heparin Sodium (Porcine) (Heparin Na) 5,000 unit SC Q12 [facility] Last Admin: 11/12/18 09:19 Dose: 5,000 unit Magnesium Hydroxide (Milk Of Magnesia) 30 ml PO DAILY PRN PRN PRN Reason: Constipation Metoprolol Succinate (Toprol Xl (Beta Sherie)) 25 mg PO DAILY [facility] Last Admin: 11/12/18 09:19 Dose: 25 mg Nutritional Formula (Lactose Free) (Ensure Enlive) 120 ml PO 4X/DAY [facility] Last Admin: 11/12/18 14:35 Dose: 120 ml Ondansetron HCl (Zofran) 4 mg IV Q8H PRN PRN PRN Reason: NAUSEA Polyethylene Glycol (Miralax) 17 gm PO DAILY [facility] Last Admin: 11/12/18 09:19 Dose: 17 gm Promethazine HCl (Phenergan) 12.5 mg IV Q6H PRN PRN PRN Reason: NAUSEA/VOMITING Psyllium Hydrophilic Mucilloid (Metamucil) 1 packet PO DAILY PRN PRN PRN Reason: CONSTIPATION Senna/Docusate Sodium (Senokot-S, Lata-Colace) 2 tablet PO BID PRN PRN Reason: Constipation Last Admin: 11/06/18 22:26 Dose: 2 tablet Sodium Chloride () 5 - 15 ml IV UD PRN PRN Reason: SALINE FLUSH Last Admin: 11/10/18 05:43 Dose: 10 ml Tamsulosin HCl (Flomax) 0.8 mg PO DAILY [facility] Last Admin: 11/12/18 09:18 Dose: 0.8 mg Medical Necessity - Tobacco Use Smoking Status: Never smoker Tobacco Use: Non-smoker Assessment/Plan All Active Problems History of Clostridium difficile infection (Resolved) Complicated UTI (urinary tract infection) (Acute) Encephalopathy acute (Acute) 1. Acute metabolic encephalopathy due to UTI resolved. Now alert though he still has baseline dementia completed 5 days of IV zosyn. urine cultured pseudomonas. will continue to monitor 2. UTI: as under 1. 3.Conjuctivitis of the right eye resolving. Redness and discharge of right eye have improved significantly on ciprofloxacin eye drops 4. Spastic tetraplegia with right hemiparesis fall precautions Baclofen pump in place PT/OT on board 5. Hyperlipidemia: on statin 6.A. fib: is rate and rhythm controlled on metoprolol 7. BPH: on flomax 8. History of neurogenic bladder as under 1. per urology, to have cystoscopy on outpatient basis to evaluate his prostate. 9. History of DVT: SCDs. No anticoagulation o/a of fall risk 10. Dementia: fall pecautions. On Aricept 11. Iron deficiency anemia:stable. On iron supplements 12. Bilateral LE edema: ANTONIO wraps. DVT prophylaxis; SCDs Disposition: awaiting placement Code Visit Inpatient E&M: 07689 Subs Hosp L2
--- NOTE | 2018-11-12 15:52 | PN_ITS ---
Patient Problems: Active and Suspected Problems Cardiac arrhythmia (Suspected) Complicated UTI (urinary tract infection) (Acute) Encephalopathy acute (Acute) Subjective: Patient seen and examined. He has no complaints. Redness and discharge from his right eye have resolved. 12 point review of systems otherwise negative. He still awaiting placement. Vitals/I&O's: Vital Signs Temp Pulse Resp BP Pulse Ox 98.1 F 77 18 108/62 97 11/12/18 14:33 11/12/18 14:33 11/12/18 14:33 11/12/18 14:33 11/12/18 14:33 Oxygen Delivery Method Room Air Weight: 171 lb 15.369 oz Body Mass Index (BMI) 24.0 Intake and Output for Last 24 Hours 11/10/18 11/11/18 11/12/18 23:59 23:59 23:59 Intake Total 1334 / 1334 1150 / 1150 880 / 880 Output Total 2750 / 2750 2700 / 2700 2100 / 2100 Balance -1416 / -1416 -1550 / -1550 -1220 / -1220 General: Alert, Oriented x3, Cooperative, No apparent distress HEENT: Atraumatic, PERRLA, EOMI, - - erythema of right conjuctiva has resolved. Oral: Moist Mucosa Neck: Supple, No JVD, Negative Carotid Bruits Lungs: Clear to auscultation, Normal air movement, No rhonchi, No wheeze, No rales Cardiovascular: Regular rate, Regular Rhythm, Normal S1, Normal S2, No murmurs Abdomen: Bowel Sounds Present, Soft, Non Tender, Non-Distended, No Hepato- splenomegaly Extremities: No clubbing, No cyanosis, No edema, Capillary Refill Less than 3 Seconds Skin: No rashes, No breakdown Musculoskeletal: No Tenderness to Palpation of Joints or Extremities Lymphatic: No Cervical, Supraclavicular, or Inguinal Adenopathy Neurological: Cranial nerves II-XII grossly intact, Neuro grossly intact Psych/Mental Status: Normal Affect, Appropriate Current Medications Acetaminophen (Tylenol) 650 mg PO Q6H PRN PRN PRN Reason: Mild Pain (scale 0-3)/T>100.7 Last Admin: 11/07/18 05:03 Dose: 650 mg Al Hydroxide/Mg Hydroxide (Mylanta Ii) 30 ml PO Q6H PRN PRN PRN Reason: Gastric burning Atorvastatin Calcium (Lipitor) 20 mg PO QHS [facility] Last Admin: 11/11/18 23:04 Dose: 20 mg Baclofen (Lioresal) 20 mg PO TID PRN PRN PRN Reason: PAIN Last Admin: 11/06/18 22:26 Dose: 20 mg Bisacodyl (Dulcolax) 10 mg RECTAL DAILY PRN PRN Reason: Constipation Calamine/Phenol (Calmoseptine Ointment) 1 applic TOPICAL BID [facility]; Protocol Last Admin: 11/12/18 09:19 Dose: Not Given Ciprofloxacin HCl (Ciloxan) 2 drop RIGHT EYE Q4 [facility] Last Admin: 11/12/18 14:35 Dose: 2 drop Donepezil HCl (Aricept) 5 mg PO QHS [facility] Last Admin: 11/11/18 23:03 Dose: 5 mg [facility]ous Sulf[facility] ([facility]) [facility] Last Admin: 11/12/18 09:17 Dose: 325 mg Heparin Sodium (Porcine) (Heparin Na) 5,000 unit SC Q12 [facility] Last Admin: 11/12/18 09:19 Dose: 5,000 unit Magnesium Hydroxide (Milk Of Magnesia) 30 ml PO DAILY PRN PRN PRN Reason: Constipation Metoprolol Succinate (Toprol Xl (Beta Sherie)) 25 mg PO DAILY [facility] Last Admin: 11/12/18 09:19 Dose: 25 mg Nutritional Formula (Lactose Free) (Ensure Enlive) 120 ml PO 4X/DAY [facility] Last Admin: 11/12/18 14:35 Dose: 120 ml Ondansetron HCl (Zofran) 4 mg IV Q8H PRN PRN PRN Reason: NAUSEA Polyethylene Glycol (Miralax) 17 gm PO DAILY [facility] Last Admin: 11/12/18 09:19 Dose: 17 gm Promethazine HCl (Phenergan) 12.5 mg IV Q6H PRN PRN PRN Reason: NAUSEA/VOMITING Psyllium Hydrophilic Mucilloid (Metamucil) 1 packet PO DAILY PRN PRN PRN Reason: CONSTIPATION Senna/Docusate Sodium (Senokot-S, Lata-Colace) 2 tablet PO BID PRN PRN Reason: Constipation Last Admin: 11/06/18 22:26 Dose: 2 tablet Sodium Chloride () 5 - 15 ml IV UD PRN PRN Reason: SALINE FLUSH Last Admin: 11/10/18 05:43 Dose: 10 ml Tamsulosin HCl (Flomax) 0.8 mg PO DAILY [facility] Last Admin: 11/12/18 09:18 Dose: 0.8 mg Medical Necessity - Tobacco Use Smoking Status: Never smoker Tobacco Use: Non-smoker Assessment/Plan All Active Problems History of Clostridium difficile infection (Resolved) Complicated UTI (urinary tract infection) (Acute) Encephalopathy acute (Acute) 1. Acute metabolic encephalopathy due to UTI * resolved. Now alert though he still has baseline dementia * completed 5 days of IV zosyn. * urine cultured pseudomonas. * will continue to monitor * 2. UTI: as under 1. 3.Conjuctivitis of the right eye * resolving. Redness and discharge of right eye have improved significantly * on ciprofloxacin eye drops * 4. Spastic tetraplegia with right hemiparesis * fall precautions * Baclofen pump in place * PT/OT on board * 5. Hyperlipidemia: on statin 6.A. fib: * is rate and rhythm controlled * on metoprolol * 7. BPH: on flomax 8. History of neurogenic bladder * as under 1. * per urology, to have cystoscopy on outpatient basis to evaluate his prostate. * 9. History of DVT: SCDs. No anticoagulation o/a of fall risk 10. Dementia: fall pecautions. On Aricept 11. Iron deficiency anemia:stable. On iron supplements 12. Bilateral LE edema: ANTONIO wraps. DVT prophylaxis; SCDs Disposition: awaiting placement Code Visit Inpatient E&M: 51492 Subs Hosp L2
--- NOTE | 2018-11-12 16:41 | PCM.EXTCARCO ---
- Diet 11/06/18 14:30 Diet: Regular Diet Food consistency:: Regular Liquid Consistency:: Regular/Thin Is pt able to select menu?: No Diet Comments: PLEASE BRING TRAY TO DESK PT IS A FEED - Routine Orders/Code Status Enema Type: Fleetz Enema Frequency: Daily PRN Suppository Type: Dulcolax 10mg Suppository Frequency: Daily PRN Change Holloway Catheter: Holloway in place, change per urology recommendations Routine Lab Work: CBC, BMP, - - Q Week Code Status: DNRCC-A - Wound(s) MOJGAN LE Wound Type: SCRATCHES/SCABS RT INNER HEEL Wound Type: callous B/L buttock/Coccyx Wound Type: Pressure Injury - Suggestions for Active Care Change Position every (hours): 2 Times a day to sit in chair: 3 - Therapies Physical Therapy: Eval and Treat Occupational Therapy: Eval and Treat - Problem/Diagnosis (1) Complicated UTI (urinary tract infection) Status: Acute Current Visit: Yes (2) Encephalopathy acute Status: Acute Current Visit: Yes (3) BPH (benign prostatic hyperplasia) Status: Chronic Current Visit: No (4) HLD (hyperlipidemia) Status: Chronic Current Visit: No (5) History of DVT (deep vein thrombosis) Status: Chronic Current Visit: No (6) Iron deficiency anemia Status: Chronic Current Visit: No (7) Neurogenic bladder Status: Chronic Current Visit: No (8) Spastic paraplegia Status: Chronic Current Visit: No - Allergies/Procedures Done in Hospital Allergies/Adverse Reactions: Allergies cephalexin Allergy (Verified 11/06/18 13:36) Hives Sulfa (Sulfonamide Antibiotics) Allergy (Verified 11/06/18 13:36) Hives Procedures: None - Type of Care/Length of Stay Estimated LOS: Convalescent Care Less Than 30 days Type of Care Needed: Skilled Rehab Potential: Fair Prognosis: Fair - Additional Orders/Day of Discharge H&P will serve as current which was dated: 11/06/18 Day of Discharge: 11/12/18 - Dietary and Speech Recommendations Dietitian Recommendations/Changes: Will provide ensure pudding or magic cup w/ meals for increased nutrition if consumed to help w/ skin healing. Rec continue lieral Regular diet and ONS medpass - Follow Up Care Primary Care Physician: Nino Paul MD [Primary Care Provider] - Please follow up with your Primary Care Physician in: 1 week Please Follow Up With: Adrian Gaming MD When: 1 week
--- NOTE | 2018-11-12 17:00 | CASEMGMT ---
Social Work Note NERI received call from Laureen at [facility] stating pre-cert has been obtained and pt can discharge today. NERI updated pt and pt's on approval for SNF and discharge today. NERI updated physician. NERI faxed completed discharge paperwork to [facility] including transfer to extended care facility, signed medication list and and any scripts. Originals in SNF folder and copy on pt's chart. RN informed this worker that pt needs to be transported via cot. NERI placed a call to [facility] and set up transportation via cot for 6:30pm. Transportation form on SNF folder and copy on pt's chart. Kye Espinaljolly compelted [facility]valescent [facility] in [facility]. Originals in SNF folder and copy on pt's chart. NERI updated RN and placed a call to [facility] to update on transportation time. Plan: Pt to discharge to [facility] skilled for rehabilitation with [facility] transporting via cot at 6:30pm Ena Rowley MSW, SOIL CONSERVATION TECHNICIAN
--- NOTE | 2018-11-12 17:33 | NURSING ---
REPORT CALLED TO CORI @ [facility]
--- NOTE | 2018-11-13 09:05 | PCM.DC.SUM ---
Discharge Date and Diagnosis Date of Admission: 11/06/18 Date of Discharge: 11/12/18 - Primary Discharge Diagnosis acute complicated UTI acute metabolic encephalopathy due to UTI conjuctivitis of the right eye - Secondary Discharge Diagnosis Chronic Problems HLD (hyperlipidemia) (Chronic) BPH (benign prostatic hyperplasia) (Chronic) Spastic paraplegia (Chronic) Neurogenic bladder (Chronic) History of DVT (deep vein thrombosis) (Chronic) Iron deficiency anemia (Chronic) Hospital Course and Treatment urology Operations: None Procedures: None Summary of Care Provided: The patient is a 78 year old M with past medical history as listed. He was admitted with complaint of altered mental status. He had been managed for UTI on outpatient basis and had failed outpatient therapy. He was admitted and managed for acute metabolic encephalopathy due to acute complicated UTI. He was started on IV Zosyn. Blood and urine cultures were ordered. Patient did have a history of neurogenic bladder and had been requiring intermittent self-catheterization at home. He was supposed to have cystoscopy on outpatient basis with the urologist. Urology was consulted to see if procedure could be carried out in the hospital. Urology saw and stated the patient was to follow-up on outpatient basis of the current UTI had resolved. Leukocytosis resolved. Was in the hospital, he developed conjunctivitis of the right eye which resolved with ciprofloxacin eyedrops. Urine cultured Pseudomonas and blood cultures were negative. He completed 5 days of IV Zosyn. Patient remained stable and was discharged to a custodial on 11/12/2018. He is to follow-up with his primary care doctor and urology. Patient seen and examined prior to discharge. He had no complaints. Redness and discharge from his right eye had resolved. 12 point review of systems otherwise negative. o/e: Vital Signs Height 5 ft 11 in Weight: 171 lb 15.369 oz Weight in Pounds 172.0 lbs Pulse Ox 97 Temperature 98.1 F Pulse Rate 77 Respiratory Rate 18 Blood Pressure [BP] 108/47 Blood Pressure 108/62 Blood Pressure Position [BP] Semi-Fowlers Blood Pressure Position Sitting General: Alert, Oriented x3, Cooperative, No apparent distress HEENT: Atraumatic, PERRLA, EOMI, - - erythema of right conjuctiva has resolved. Oral: Moist Mucosa Neck: Supple, No JVD, Negative Carotid Bruits Lungs: Clear to auscultation, Normal air movement, No rhonchi, No wheeze, No rales Cardiovascular: Regular rate, Regular Rhythm, Normal S1, Normal S2, No murmurs Abdomen: Bowel Sounds Present, Soft, Non Tender, Non-Distended, No Hepato-splenomegaly Extremities: No clubbing, No cyanosis, No edema, Capillary Refill Less than 3 Seconds Skin: No rashes, No breakdown Musculoskeletal: No Tenderness to Palpation of Joints or Extremities Lymphatic: No Cervical, Supraclavicular, or Inguinal Adenopathy Neurological: Cranial nerves II-XII grossly intact, Neuro grossly intact Psych/Mental Status: Normal Affect, Appropriate Plan as described above. - Physical Exam Vital Signs Temp Pulse Resp BP Pulse Ox 98.1 F 77 18 108/62 97 11/12/18 14:33 11/12/18 14:33 11/12/18 14:33 11/12/18 14:33 11/12/18 14:33 Oxygen Delivery Method Room Air Weight: 171 lb 15.369 oz Body Mass Index (BMI) 24.0 Intake and Output for Last 24 Hours 11/11/18 11/12/18 11/13/18 23:59 23:59 23:59 Intake Total 1150 / 1150 1360 / 1360 Output Total 2700 / 2700 2100 / 2100 Balance -1550 / -1550 -740 / -740 Discharge Diet: Low fat/ Low Cholesterol Discharge Activity: Return to Normal Activity Weight Bearing Status: Weight bearing as tolerated Call your doctor if you observe: Fever of 101 or Higher, Inability to urinate Home Medications: Medications to take at Discharge Acetaminophen [Tylenol] 650 mg PO Q4H PRN PRN 11/06/18 Ascorbic Acid [Vitamin C] 100 mg PO DAILY 11/06/18 Baclofen 20 mg PO TID PRN 11/06/18 Bisacodyl [Biscolax] 10 mg RC DAILY PRN 11/06/18 Donepezil HCl [Aricept] 5 mg PO QHS 11/06/18 Ferrous Sulfate 325 mg PO DAILY 11/06/18 Metoprolol Succinate [Toprol Xl] 25 mg PO DAILY 11/06/18 Multivitamin [Once Daily] 1 each PO DAILY 11/06/18 Polyethylene Glycol 3350 [Miralax] 17 gm PO DAILY 11/06/18 Probenecid 500 mg PO DAILY 11/06/18 Sennosides/Docusate Sodium [Senna-Docusate Sodium Tablet] 1 each PO DAILY 11/06/18 Simvastatin [Zocor] 40 mg PO QHS 11/06/18 Tamsulosin HCl [Flomax] 0.8 mg PO DAILY 11/06/18 Ciprofloxacin 0.3% [Ciloxan] 2 drop RIGHT EYE Q4 bottle 11/12/18 Menthol/Lanolin/Calamine/Znox [Calmoseptine Ointment] 1 applic TOPICAL BID tube 11/12/18 Psyllium [Metamucil] 1 packet PO DAILY PRN PRN packet 11/12/18 Senna/Docusate Sodium [Senokot-S] 2 tablet PO BID PRN tablet 11/12/18 Primary Care Physician: Nino Paul MD [Primary Care Provider] - Please follow up with your Primary Care Physician in: 1 week Please Follow Up With: Adrian Gaming MD When: 1 week Disposition: Shelter facility Minutes spent on discharge:: 40 Patient Condition:: Stable Medical Necessity - Tobacco Use Smoking Status: Never smoker Tobacco Use: Non-smoker Meaningful Use Info Meaningful Use Diagnoses (Choose all that apply): None applicable Code Visit Inpatient E&M: 29304 Disch Hosp
== END 2018-11-12 20:10 | DRG 689 ==
PROVIDERS: Family Medicine; Admitting Provider Internal Medicine; Visit Provider Student in an Organized Health Care Education/Training Program
DX: N39.0 Urinary tract infection, site not specified (principal); G82.50 Quadriplegia, unspecified; G93.41 Metabolic encephalopathy; N31.9 Neuromuscular dysfunction of bladder, unspecified; E78.5 Hyperlipidemia, unspecified; N40.0 Benign prostatic hyperplasia without lower urinary tract symptoms; Z66 Do not resuscitate; H10.9 Unspecified conjunctivitis; D50.9 Iron deficiency anemia, unspecified; F03.90 Unspecified dementia, unspecified severity, without behavioral disturbance, psychotic disturbance, mood disturbance, and anxiety; R60.0 Localized edema; Z79.899 Other long term (current) drug therapy; Z86.718 Personal history of other venous thrombosis and embolism; Z95.828 Presence of other vascular implants and grafts
CPT/HCPCS: 36415; 80048; 81001; 83735; 84100; 85025; 87077; 87086; 87088; 87186; 97162; 97165; 97530; 97535; J7030; A4216

== ENCOUNTER 2019-03-29 09:55 | Day surgery (SDC) | payer MEDICARE, SELFPAY ==
[2018-11-06 14:30] VITALS: BMI 24.0
[2019-03-29 10:27] VITALS: BP 131/51; PULSE 58; RESP 16; TEMP 36.4; O2SAT 98; BMI 23.6
[2019-03-29] MEDS: Ciprofloxacin 400 MG/200 ML BAG 200 MG IV (10:58)
--- NOTE | 2019-03-29 13:06 | DCINST_ITS ---
Discharge Diet: Light diet - advance as tolerated Discharge Activity: Return to Normal Activity Suture Line Care: Avoid Pulling/Pushing, Avoid Pinching/Bending Catheter: Holloway to large bag Drain: Wyalusing Allergies/Adverse Reactions: Allergies cephalexin Allergy (Verified 11/06/18 13:36) Hives Sulfa (Sulfonamide Antibiotics) Allergy (Verified 11/06/18 13:36) Hives Medications to take at Discharge Acetaminophen [Tylenol] 650 mg PO Q4H PRN PRN 11/06/18 Ascorbic Acid [Vitamin C] 250 mg PO DAILY 11/06/18 Baclofen 20 mg PO TID PRN 11/06/18 Bisacodyl [Biscolax] 10 mg RC DAILY PRN 11/06/18 Donepezil HCl [Aricept] 5 mg PO QHS 11/06/18 Ferrous Sulfate 325 mg PO DAILY 11/06/18 Metoprolol Succinate [Toprol Xl] 25 mg PO DAILY 11/06/18 Multivitamin [Once Daily] 1 each PO DAILY 11/06/18 Polyethylene Glycol 3350 [Miralax] 17 gm PO DAILY 11/06/18 Probenecid 500 mg PO DAILY 11/06/18 Sennosides/Docusate Sodium [Senna-Docusate Sodium Tablet] 1 each PO DAILY 11/06/18 Simvastatin [Zocor] 40 mg PO QHS 11/06/18 Tamsulosin HCl [Flomax] 0.8 mg PO DAILY 11/06/18 Psyllium [Metamucil] 1 packet PO DAILY PRN PRN packet 11/12/18 Senna/Docusate Sodium [Senokot-S] 2 tablet PO PRN PRN 03/22/19 Primary Care Physician: Nino Paul MD [Primary Care Provider] - Test Results: Test results from this visit will be discussed in further detail at your follow- up appointment, if applicable. Please Follow Up With: Adrian Gaming MD When: Follow up in 6 weeks
--- NOTE | 2019-03-29 13:07 | PCM.OPRPT ---
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 Post-Operative Diagnosis: Same Surgery/Procedure Performed:: Cystoscopy and placement of a suprapubic catheter Description of Surgical Findings:: 78-year-old male was taken back to the operating room after smooth induction of MAC local he was placed supine on the table the lower abdomen was shaved prepped and draped in usual sterile fashion the penis is were also prepped and draped in usual fashion, went in with a flexible cystoscope he had a very distended bladder with no with multiple diverticuli throughout the bladder, after the bladder was nice and distended then I infiltrated the skin with lidocaine made a small incision in the skin used a finder needle to find the tract to the bladder, and then next the track I went with the insertion kit with the suprapubic Punch into the bladder with the suprapubic cath and took out the stylette but a 16 English catheter through the sheath, filled the bladder with water and inflated the balloon and the catheter pulled back in the balloon and then secured the catheter to the lower abdomen dressings were then placed around the lower abdomen catheter was then set to gravity drainage patient anesthetic was being reversed. He will follow-up in 6 weeks for a suprapubic catheter change in the office. Type of Anesthesia:: General Drains: 16 fr SP tube. - Admit VTE Documentation VTE Present on Admission: No
[2019-03-29 13:18] VITALS: BP 109/49; BP 131/51; PULSE 50; RESP 16; TEMP 36.4; O2SAT 97
[2019-03-29 13:25] VITALS: BP 108/54; BP 131/51; PULSE 48; RESP 14; O2SAT 96
[2019-03-29 13:30] VITALS: BP 109/56; BP 131/51; PULSE 50; RESP 16; O2SAT 96
[2019-03-29 13:35] VITALS: BP 102/52; BP 131/51; PULSE 45; RESP 16; TEMP 36.4; O2SAT 96
== END 2019-03-29 15:00 | disposition home or self-care (01) ==
LOC: SDC 09:58 → AC 10:00
PROVIDERS: Referring Provider Urology; Visit Provider Urology
PROC: 0T9B40Z Drainage of Bladder with Drainage Device, Percutaneous Endoscopic Approach (ICD-10-PCS; CPT 52005; principal; 2019-03-29 11:50)
DX: N31.9 Neuromuscular dysfunction of bladder, unspecified (principal); N40.1 Benign prostatic hyperplasia with lower urinary tract symptoms; R33.8 Other retention of urine; Q54.8 Other hypospadias; I10 Essential (primary) hypertension; E78.00 Pure hypercholesterolemia, unspecified; F03.90 Unspecified dementia, unspecified severity, without behavioral disturbance, psychotic disturbance, mood disturbance, and anxiety; Z79.899 Other long term (current) drug therapy; Z87.440 Personal history of urinary (tract) infections; Z86.718 Personal history of other venous thrombosis and embolism
CPT/HCPCS: 00860; 51040; J7120; C1769; J0744; J2405